=== PATIENT | female | born 1945 | race Hispanic/Latino ===

== ENCOUNTER 2017-12-23 02:41 | Observation (INO) | payer MEDICARE ==
[2017-12-23] VITALS (7 sets, daily range): BP systolic 140–162; BP diastolic 65–78
[~2017-12-23] VITALS: Ht 160 cm; Wt 82.1 kg
[~2017-12-23 02:41] MED LIST: ANTIVERT12.5 MG PO; ASPIRIN81 MG PO; CYMBALTA30 MG PO; FAMOTIDINE20 MG PO; GABAPENTIN300 MG PO; HYDROCHLOROTH12.5 MG PO; LEVOTHYROXINE75 MCG PO; LISINOPRIL40 MG PO; METFORMIN HCL500 MG PO; OMEPRAZOLE20 M1 PO; ULTRAM50 MG PO; XANAX0.25 MG PO
--- OUTSIDE RECORDS SUMMARY | 2017-12-23 02:43 | XMS REPORT | Clinical Summary ---
Author Author CURTIS [facility] Address Unknown Phone Unavailable Care Team Providers Care Lumber Puller Name Role Phone PCP Unavailable Allergies No Known Allergies Current Medications Prescription Sig. Disp. Refills Start End Date Status Date levothyroxine (SYNTHROID, Take 75 mcg by mouth Active LEVOTHROID) 75 MCG tablet daily. busPIRone (BUSPAR) 7.5 MG Take 7.5 mg by mouth 2 Active tablet (two) times daily. sitaGLIPtin (JANUVIA) 100 Take 100 mg by mouth Active MG tablet daily. tiZANidine (ZANAFLEX) 4 Take 4 mg by mouth every Active MG tabletIndications: night as needed. Muscle Spasm lisinopril Take 1 tablet (40 mg 0 11/03/19 Active (PRINIVIL,ZESTRIL) 40 MG total) by mouth daily. 14 tablet gabapentin (NEURONTIN) Take 300 mg by mouth 3 Active 300 MG capsule (three) times daily. sertraline (ZOLOFT) 100 Take 50 mg by mouth daily Active MG tablet . atorvastatin (LIPITOR) 40 Take 40 mg by mouth Active MG tablet daily. metFORMIN (GLUCOPHAGE) Take 500 mg by mouth 2 Active 500 MG tablet (two) times daily with breakfast and dinner. clonazePAM (KLONOPIN) 1 Take 1 mg by mouth 2 Active MG tablet (two) times daily as needed for Anxiety. meclizine (ANTIVERT) 12.5 Take 12.5 mg by mouth 3 Active mg tablet (three) times daily as needed. amLODIPine (NORVASC) 5 MG Take 5 mg by mouth daily. Active tablet magnesium oxide 500 mg Take 500 mg by mouth Active Tab daily. aspirin 325 MG tablet Take 325 mg by mouth Active daily. traMADol (ULTRAM) 50 mg Take 50 mg by mouth every Active tablet 6 (six) hours as needed for Pain. insulin detemir (LEVEMIR) Inject 25 Units Active 100 unit/mL injection subcutaneously 2 (two) times daily. insulin lispro (HUMALOG) Inject subcutaneously 3 Active 100 unit/mL injection (three) times daily before meals. Active Problems Problem Noted Date Chest pain 11/10/2015 Overview: UPDATED BY ICD10 SNOMED/IMO UPDATES Dizziness 11/10/2015 Pyuria 02/18/2015 Fall at home 02/18/2015 DM (diabetes mellitus) (HCC) 02/17/2015 CVD (cerebrovascular disease)-CTA 10/30/2013, 60% R ICA, 60-80% L ICA 2014 [429.2] MCI (mild cognitive impairment) 02/17/2015 Gait abnormality 02/16/2015 Family History Medical History Relation Name Comments Hypertension Father Hypertension Mother Relation Name Status Comments Father Mother Social History Tobacco Use Types Packs/Day Years Used Date Former Smoker Alcohol Use Drinks/Week oz/Week Comments No Sex Assigned at Date Recorded Not on file Last Filed Vital Signs Not on file Plan of Treatment Not on file Results Not on fileafter 12/22/2016
[2017-12-23] MEDS ORDERED: METOPROLOL TARTRATE 25 MG TAB PO ONE (03:00)
[2017-12-23] MEDS ORDERED: NITROGLYCERIN 2% OINT 1 GM PKT TOP ONE (03:00)
[2017-12-23] MEDS ORDERED: ASPIRIN 81 MG CHEW TAB PO ONE (03:00)
[2017-12-23 03:01] LABS: BASOPHILS # (AUTO) 0.1 (0.0-0.1); BASOPHILS % 1.6 % (0.0-1.0); EOSINOPHILS # (AUTO) 0.1 (0.0-0.4); EOSINOPHILS % 2.3 % (0.0-6.0); HEMATOCRIT 36.1 % (34.2-44.1); LYMPHOCYTES # (AUTO) 2.4 (1.0-3.2); LYMPHOCYTES % 41.9 % (18.0-39.1); MEAN CORPUSCULAR HEMOGLOBIN 26.3 pg (28-32); MEAN CORPUSCULAR HGB CONC 33.2 g/dL (31-35); MEAN CORPUSCULAR VOLUME 79.2 fL (81-99); MONOCYTES # (AUTO) 0.6 (0.2-0.8); MONOCYTES % 10.6 % (4.4-11.3); NEUTROPHILS # (AUTO) 2.5 (2.1-6.9); NEUTROPHILS % 43.4 % (38.7-80.0); PLATELET COUNT 235 x10e3/uL (140-360); RED BLOOD COUNT 4.56 x10e6/uL (3.6-5.1); RED CELL DISTRIBUTION WIDTH 12.9 % (11.7-14.4)
[2017-12-23 03:10] LABS: INR 1.03; PARTIAL THROMBOPLASTIN TIME 27.9 seconds (23.8-35.5); PROTHROMBIN TIME 12.7 seconds (11.9-14.5)
[2017-12-23] MEDS ORDERED: LEXAPRO10 MG PO (03:22)
[2017-12-23] MEDS ORDERED: VITAMIN D1000 UNI1 PO (03:22)
[2017-12-23] MEDS ORDERED: ATORVASTATIN CA20 MG PO (03:22)
[2017-12-23] MEDS ORDERED: METAGLIP PO (03:22)
[2017-12-23] MEDS ORDERED: AMLODIPINE BESYL5 MG PO (03:22)
[2017-12-23] MEDS ORDERED: ARICEPT5 MG PO (03:22)
[2017-12-23] MEDS ORDERED: LEVEMIR100 UNIT/1 SC (03:24)
[2017-12-23] MEDS ORDERED: LANTUS 3ML100 UNITS/ SQ (03:24)
[2017-12-23 03:44] LABS: CLARITY,URINE CLEAR (CLEAR); COLOR,URINE YELLOW (YELLOW); LEUKOCYTE ESTERASE ,URINE NEGATIVE (NEGATIVE); NITRITE,URINE NEGATIVE (NEGATIVE)
[2017-12-23 03:45] LABS: BILIRUBIN,URINE NEGATIVE (NEGATIVE); KETONES,URINE NEGATIVE (NEGATIVE); PROTEIN,URINE DIPSTICK TRACE (NEGATIVE); URINE UROBILINOGEN 0.2 mg/dL (0.2 - 1)
[2017-12-23 03:51] LABS: ALANINE AMINOTRANSFERASE 31 IU/L (0-55); ALBUMIN 4.2 g/dL (3.5-5.0); ALBUMIN/GLOBULIN RATIO 1.3 (0.8-2.0); ALKALINE PHOSPHATASE 189 IU/L (40-150); BLOOD UREA NITROGEN 15 mg/dL (7-26); BUN/CREATININE RATIO 17 (6-25); CALCIUM 9.7 mg/dL (8.4-10.2); CARBON DIOXIDE 23 mmol/L (22-29); CHLORIDE 98 mmol/L (98-107); CREATINE KINASE 429 IU/L (29-168); CREATININE, SERUM 0.87 mg/dL (0.57-1.11); EST GLOMERULAR FILTRATION RATE > 60 ML/MIN (60-); MAGNESIUM 1.6 MG/DL (1.3-2.1); SODIUM 134 mmol/L (136-145)
[2017-12-23 03:53] LABS: BACTERIA,URINE RARE /HPF; EPITHELIAL CELLS,URINE RARE /LPF; RBC,URINE 0-5 /HPF (0-5)
[2017-12-23 03:59] LABS: GLUCOSE 438 mg/dL (74-118)
[2017-12-23] MEDS ORDERED: SODIUM CHLORIDE 0.9% 1000ML 1,000 ML IV STA (04:15)
[2017-12-23] MEDS ORDERED: INSULIN LISPRO 100 UNIT/1 ML 3ML VIAL SQ STA ×2 (04:15→04:35)
--- NOTE | 2017-12-23 04:43 | Diagnostic Imaging Report ---
EXAMINATION: CHEST SINGLE (PORTABLE) INDICATION: Chest pain. COMPARISON: 05/12/2016 FINDINGS: TUBES and LINES: None. LUNGS: Lungs are not well inflated. Lungs are clear. There is mild prominence of the central pulmonary vasculature, consistent with pulmonary venous congestion. PLEURA: No pleural effusion or pneumothorax. HEART AND MEDIASTINUM: Cardiac size is mildly enlarged. BONES AND SOFT TISSUES: No acute osseous lesion. Soft tissues are unremarkable. UPPER ABDOMEN: No free air under the diaphragm. IMPRESSION: No acute thoracic abnormality. Signed by: Dr. Ean Bush M.D. on 12/23/2017 4:39 AM
[2017-12-23] MEDS ORDERED: MORPHINE SULFATE 2 MG/ML SYR IV PRN (04:45)
[2017-12-23] MEDS ORDERED: ONDANSETRON HCL INJ 2 MG/ML VIAL IV PRN (04:45)
[2017-12-23] MEDS ORDERED: DEXTROSE 50% SYRINGE 50 ML IV PRN (04:45)
--- OUTSIDE RECORDS SUMMARY | 2017-12-23 04:46 | XMS REPORT ---
[facility] Address Unknown Phone Unavailable Care Team Providers Care Drawstring Knotter Name Role Phone AMARIS GAN Unavailable Unavailable Problems This patient has no known problems. Allergies, Adverse Reactions, Alerts This patient has no known allergies or adverse reactions. Medications This patient has no known medications. Results Test Description Test Time Test Comments Text Results Atomic Results Result Comments CHEST SINGLE (PORTABLE) 2017-12-23 04:39:00 [facility] [address] [address] Patient Name: FANG QUINTANILLA MR #: [id number] : 1945 Age/Sex: 72/F Req #: [id number] Adm Physician: Ordered by: JORGE LUIS SCHWARTZ MD Report #: [id number] Location: ER Room/Bed: _ Procedure: [id number] DX/CHEST SINGLE (PORTABLE) Exam Date: 12/23/17 Exam Time: 0308 REPORT STATUS: Signed EXAMINATION : CHEST SINGLE (PORTABLE) INDICATION: Chest pain. COMPARISON: 05/12/2016 FINDINGS: TUBES and LINES: None. LUNGS : Lungs are not well inflated. Lungs are clear. There is mild prominence of the central pulmonary vasculature, consistent with pulmonary venous congestion. PLEURA: No pleural effusion or pneumothorax. HEART AND MEDIASTINUM: Cardiac size is mildly enlarged. BONES AND SOFT TISSUES: No acute osseous lesion. Soft tissues are unremarkable. UPPER ABDOMEN : No free air under the diaphragm. IMPRESSION: No acute thoracic abnormality. Signed by: Dr. Ean Bush M.D. on 12/23/2017 4:39 AM Dictated By: EAN JEAN-BAPTISTE MD 8 Transcribed By: BRITTNEY on 12/23/17438 COPY TO: JORGE LUIS SCHWARTZ MD
--- OUTSIDE RECORDS SUMMARY | 2017-12-23 04:46 | XMS REPORT | Clinical Summary ---
Author Author CURTIS [facility] Address Unknown Phone Unavailable Care Team Providers Care Commercial Roofer Name Role Phone PCP Unavailable Allergies No [...]
[2017-12-23] MEDS: NITROGLYCERIN 2% OINT 1 GM PKT TOP SCH ×3 (05:43→18:22)
[2017-12-23] MEDS: INSULIN REGULAR, HUMAN 100 UNIT/1 ML 3ML VIAL SQ SCH ×2 (08:41→12:24)
[2017-12-23] MEDS: ASPIRIN 81 MG ENTERIC COATED PO SCH (08:42)
[2017-12-23] MEDS: FAMOTIDINE 20 MG/2 ML VIAL IV SCH ×2 (08:42→20:38)
[2017-12-23 12:42] LABS: CREATINE KINASE MB 1.7 ng/mL (0-5.0)
[2017-12-23] MEDS ORDERED: ALPRAZOLAM 0.25 MG TAB PO PRN (12:45)
[2017-12-23] MEDS ORDERED: INSULIN DETEMIR U SC SCH (12:45)
[2017-12-23] MEDS ORDERED: CHOLECALCIFEROL 1,000 UNIT TAB PO SCH (12:45)
[2017-12-23] MEDS ORDERED: ACETAMINOPHEN 325 MG TAB PO PRN (14:45)
[2017-12-23] MEDS: TRAMADOL HCL 50 MG TAB PO PRN (14:48)
[2017-12-23] MEDS: GABAPENTIN 300 MG CAP PO SCH ×2 (14:48→20:38)
--- NOTE | 2017-12-23 14:50 | Consultation ---
DATE OF CONSULTATION: December 23, 2017 ENDOCRINE CONSULTATION REFERRING PHYSICIAN: This is a patient of Dr. Walton. Thank you very much for referring this patient. HISTORY OF PRESENT ILLNESS: This is a 72-year-old female who is referred to me for evaluation of uncontrolled diabetes mellitus. The patient tells me that she is a known diabetic for almost 4 to 5 years and takes insulin, both Lantus and Levemir, for some reason. She takes Lantus about 40 at bedtime and the Levemir 30 twice a day. She also takes the glyburide and metformin. She came to the hospital with a history of nausea and vomiting, and her blood sugar was found to be 438 and anion gap was slightly elevated at 17. Her blood sugar is presently running in 250 to 300 range. She also came with a history of chest pain. There is no history of coronary artery disease. She has history of hyperlipidemia, for which she is on Lipitor 40 mg once daily. She is also on gabapentin 300 mg 3 times a day and levothyroxine 0.075 mg once daily. Patient is also multiple blood pressure medicines including lisinopril. PHYSICAL EXAMINATION: GENERAL: Today the patient is alert, awake, a little bit apprehensive. VITAL SIGNS: Her heart rate is around 78. Blood pressure 146/86. HEENT: Examination essentially unremarkable. Thyroid is palpable. Clinically she is near euthyroid. CHEST: Bilateral vesicular breathing. She has mild bronchospasm. CARDIAC: Both 1st and 2nd heart sounds. There is no 3rd or 4th heart sound. Ejection sound grade 2/6. NEUROLOGIC: Patient also has history of dementia, for which she is on Aricept. CLINICAL IMPRESSION: 1. Diabetes mellitus type 2, uncontrolled with complications. 2. Hypertension. 3. Hyperlipidemia. 4. Chest pain, rule out coronary artery disease. 5. Hypothyroidism. The plan at this time is to do a hemoglobin A1c, thyroid function test. Monitor her blood sugars closely and continue the Levemir and the Humalog combinations. Thanks for referring this patient. I will be following this patient with you. Job#: [id number] EV
[2017-12-23 14:53] LABS: FREE T4 (FREE THYROXINE) 0.93 ng/dL (0.9-1.8); THYROID STIMULATING HORMONE 1.253 uIU/mL (0.350-4.940)
[2017-12-23] MEDS ORDERED: METAGLIP PO SCH (15:00)
--- NOTE | 2017-12-23 15:29 | History and Physical ---
CLINICAL HISTORY: This is a 72-year-old woman, a patient Dr. Avel Tierney, admitted via the emergency room because of atypical chest pains of 1-month duration and because of glucose of 470 and blood pressure over 200 mmHg systolic. This unfortunate woman suffers from diabetes, hypertension, hyperlipidemia, hypothyroidism, dementia and anxiety. She was hospitalized in 2016 with complaints of chest pains, was sent home to have further workup on outpatient basis. According to the patient and family, she has had previous stress test probably within in the last year that was negative. Her echocardiogram had shown normal left ventricular function. Her current symptoms appear to be occurring once every month, rated 8 on a scale of 10, lasting for up to an hour, described as a pressure sensation radiating to the back, not related to exertion, not pleuritic and not related to eating. 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 In the emergency room, her blood pressure was apparently elevated. Her blood sugar was high. She is being admitted for IV fluids and for further evaluation and treatment. PAST MEDICAL HISTORY: Remarkable for the above-mentioned conditions. MEDICATIONS: Please refer to the existing list. PAST SURGERY: Included a hysterectomy, cholecystectomy, appendectomy. FAMILY HISTORY: Sister had diabetes. Mother had hypertension. PERSONAL AND SOCIAL HISTORY: She has 3 children. Denies smoking, drinking, drug abuse. 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 REVIEW OF SYSTEMS: Noncontributory. PHYSICAL EXAMINATION: GENERAL: She is obese, alert, coherent. CARDIOVASCULAR: Jugular veins are not distended. S1 and S2 are regular. There are no appreciable murmurs. RESPIRATORY: The lungs are clear. ABDOMEN: Soft. Bowel sounds are present. EXTREMITIES: Show no cyanosis, clubbing or edema. LABORATORY STUDIES: Sodium 134, potassium 4.0, chloride 98, bicarb 23, BUN 15, creatinine 0.87. White count 5700, hemoglobin 12, platelet count 236,000. INR is 1.03. Liver functions were negative. IMPRESSION: 1. Atypical chest pains, apparently ongoing for some time, possibly dating back as far as 3 years, not related to exertion, rated 8 on a scale of 10, described as a pressure sensation radiating to the back. 2. Poorly controlled diabetes with blood sugar over 400 and with the patient already taking 80 mg of insulin per day. She is saying that she does not want to take any oral hypoglycemics because they made her feel bad. 3. Hypothyroidism. 4. Obesity. 5. Hypertension. 6. Hyperlipidemia. 7. Dementia. 8. Anxiety. 9. Previous normal left ventricular function. RECOMMENDATIONS: Consider repeat stress testing. Endocrinology consultation at patient's and family's request. Further adjustment of insulin. Diabetes education. Adjustment of blood pressure medications. Job#: [id number] EV cc:MD SALINA VELAZQUEZ MD
[2017-12-23] MEDS ORDERED: SODIUM CHLORIDE 0.9% 50ML 50 ML ONE (15:40)
[2017-12-23] MEDS ORDERED: IOPAMIDOL 370 MG/ML 200 ML INFUS..BTL INJ ONE (15:41)
--- NOTE | 2017-12-23 16:28 | Diagnostic Imaging Report ---
EXAM: CT Chest WITH contrast 12/23/2017 3:01 PM INDICATION: \S\Rule out PE \[id number] \S\1557 COMPARISON: Same day x-ray. TECHNIQUE: Chest was scanned utilizing a multidetector helical scanner from the lung apex through the level of the adrenal glands without administration of IV contrast. Coronal and sagittal reformations were obtained. PE protocol was performed. IV CONTRAST: 100 mL of Isovue-370 COMPLICATIONS: None RADIATION DOSE: Total DLP: 526 mGy*cm Estimated effective dose: (DLP x 0.014 x size factor) mSv CTDIvol has been reviewed. It is below the limits set by the Radiation Protocol Committee (RPC). FINDINGS: LINES/ TUBES: None. LUNGS AND AIRWAYS: Suboptimal opacification of pulmonary arteries. Within this context, there is no definite pulmonary embolism to the segmental level. Airways are normal. 3 mm right upper lobe nodule (series 3, image 42). 3 mm left upper lobe nodules (series 3 images 27 and 24). PLEURA: The pleural spaces are clear. HEART AND MEDIASTINUM: Left thyroid lobe calcification. No mediastinal, hilar or axillary lymphadenopathy. The heart is normal in size.. There is no pericardial effusion. There are mild atherosclerotic calcifications in the aorta and coronary arteries. UPPER ABDOMEN: Cholecystectomy. 2.7 cm right adrenal nodule, likely an adenoma. BONES: The visualized bony thorax is within normal limits. SOFT TISSUES: Unremarkable. IMPRESSION: Suboptimal opacification of pulmonary arteries. Within this context, there is no definite pulmonary embolism to the segmental level. No lung consolidation. Nonspecific subcentimeter lung nodules. Without risk factors, no follow-up is necessary. With risk factors, follow-up with low-dose chest CT in one year is recommended. Signed by: Dr. Papito Sumner MD on 12/23/2017 4:24 PM
[2017-12-23] MEDS: INSULIN LISPRO 100 UNIT/1 ML 3ML VIAL SQ SCH ×3 (16:30→20:16)
[2017-12-23] MEDS ORDERED: INSULIN LISPRO 100 UNIT/1 ML 3ML VIAL SQ SCH (16:30)
[2017-12-23 20:34] LABS: CREATINE KINASE 179 IU/L (29-168)
[2017-12-23] MEDS: ATORVASTATIN 40 MG TAB PO SCH (20:38)
[2017-12-23] MEDS: ALPRAZOLAM 0.25 MG TAB PO PRN (20:38)
[2017-12-23] MEDS: DONEPEZIL HCL 5 MG TAB PO SCH (20:38)
[2017-12-23] MEDS ORDERED: INSULIN DETEMIR 100 UNIT/ML PEN SQ SCH ×2 (21:00)
[2017-12-24] VITALS (8 sets, daily range): BP systolic 86–158; BP diastolic 53–67
[2017-12-24] MEDS: NITROGLYCERIN 2% OINT 1 GM PKT TOP SCH ×4 (00:23→17:20)
[2017-12-24] MEDS: LEVOTHYROXINE SODIUM 75 MCG TAB PO SCH (05:34)
[2017-12-24 06:59] LABS: BASOPHILS # (AUTO) 0.1 (0.0-0.1); BASOPHILS % 1.2 % (0.0-1.0); EOSINOPHILS # (AUTO) 0.1 (0.0-0.4); EOSINOPHILS % 1.3 % (0.0-6.0); HEMATOCRIT 35.7 % (34.2-44.1); HEMOGLOBIN 11.6 g/dL (12.0-16.0); LYMPHOCYTES # (AUTO) 2.6 (1.0-3.2); LYMPHOCYTES % 34.5 % (18.0-39.1); MEAN CORPUSCULAR HEMOGLOBIN 26.5 pg (28-32); MEAN CORPUSCULAR HGB CONC 32.5 g/dL (31-35); MEAN CORPUSCULAR VOLUME 81.7 fL (81-99); MONOCYTES # (AUTO) 0.6 (0.2-0.8); MONOCYTES % 8.2 % (4.4-11.3); NEUTROPHILS # (AUTO) 4.1 (2.1-6.9); NEUTROPHILS % 54.5 % (38.7-80.0); PLATELET COUNT 254 x10e3/uL (140-360); RED BLOOD COUNT 4.37 x10e6/uL (3.6-5.1); RED CELL DISTRIBUTION WIDTH 13.1 % (11.7-14.4)
[2017-12-24 07:21] LABS: ALANINE AMINOTRANSFERASE 30 IU/L (0-55); ALBUMIN 3.9 g/dL (3.5-5.0); ALBUMIN/GLOBULIN RATIO 1.1 (0.8-2.0); ALKALINE PHOSPHATASE 114 IU/L (40-150); ANION GAP 13.1 mmol/L (8-16); BLOOD UREA NITROGEN 11 mg/dL (7-26); BUN/CREATININE RATIO 14 (6-25); CALCIUM 9.5 mg/dL (8.4-10.2); CARBON DIOXIDE 25 mmol/L (22-29); CHLORIDE 99 mmol/L (98-107); CHOL/HDL RATIO 2.6 (3.0-3.6); CHOLESTEROL 143 MD/DL (0-199); CREATININE, SERUM 0.81 mg/dL (0.57-1.11); EST GLOMERULAR FILTRATION RATE > 60 ML/MIN (60-); GLUCOSE 291 mg/dL (74-118); HDL CHOLESTEROL 56 MG/DL (40-60); LDL CHOLESTEROL 70 MG/DL (60-130); POTASSIUM 4.1 mmol/L (3.5-5.1); SODIUM 133 mmol/L (136-145); TRIGLYCERIDES 85 MG/DL (0-149)
[2017-12-24 07:31] LABS: FREE T4 (FREE THYROXINE) 1.04 ng/dL (0.9-1.8); THYROID STIMULATING HORMONE 1.667 uIU/mL (0.350-4.940)
[2017-12-24] MEDS ORDERED: REGADENOSON 0.4 MG/5 ML SYR IV ONE (08:17)
[2017-12-24] MEDS ORDERED: ASPIRIN 81 MG CHEW TAB PO SCH (09:00)
[2017-12-24] MEDS: FAMOTIDINE 20 MG/2 ML VIAL IV SCH ×2 (10:10→21:29)
[2017-12-24] MEDS: ASPIRIN 81 MG ENTERIC COATED PO SCH (10:10)
[2017-12-24] MEDS: LISINOPRIL 20 MG TAB PO SCH (10:11)
[2017-12-24] MEDS: AMLODIPINE BESYLATE 5 MG TAB PO SCH (10:11)
[2017-12-24] MEDS: CHOLECALCIFEROL 1,000 UNIT TAB PO SCH (10:11)
[2017-12-24] MEDS: GABAPENTIN 300 MG CAP PO SCH ×3 (10:11→21:29)
[2017-12-24] MEDS: ESCITALOPRAM OXALATE 10 MG TAB PO SCH (10:11)
[2017-12-24] MEDS: INSULIN LISPRO 100 UNIT/1 ML 3ML VIAL SQ SCH ×6 (10:27→21:00)
[2017-12-24] MEDS: TRAMADOL HCL 50 MG TAB PO PRN (15:14)
[2017-12-24] MEDS ORDERED: INSULIN DETEMIR 100 UNIT/ML PEN SQ SCH (21:00)
[2017-12-24] MEDS: ATORVASTATIN 40 MG TAB PO SCH (21:29)
[2017-12-24] MEDS: DONEPEZIL HCL 5 MG TAB PO SCH (21:29)
[2017-12-25] VITALS: BP 113/52
[2017-12-25] MEDS: ALPRAZOLAM 0.25 MG TAB PO PRN (00:19)
[2017-12-25] MEDS: TRAMADOL HCL 50 MG TAB PO PRN (03:35)
[2017-12-25 04:00] VITALS: BP 129/60
[2017-12-25] MEDS: NITROGLYCERIN 2% OINT 1 GM PKT TOP SCH ×2 (06:00)
[2017-12-25] MEDS: LEVOTHYROXINE SODIUM 75 MCG TAB PO SCH (06:05)
[2017-12-25 07:00] VITALS: BP 145/64
[2017-12-25 07:40] VITALS: BP 145/64
[2017-12-25] MEDS: ESCITALOPRAM OXALATE 10 MG TAB PO SCH (08:24)
[2017-12-25] MEDS: FAMOTIDINE 20 MG/2 ML VIAL IV SCH (08:24)
[2017-12-25] MEDS: ASPIRIN 81 MG ENTERIC COATED PO SCH (08:24)
[2017-12-25] MEDS: GABAPENTIN 300 MG CAP PO SCH (08:24)
[2017-12-25] MEDS: AMLODIPINE BESYLATE 5 MG TAB PO SCH (08:24)
[2017-12-25] MEDS: CHOLECALCIFEROL 1,000 UNIT TAB PO SCH (08:25)
[2017-12-25] MEDS: LISINOPRIL 20 MG TAB PO SCH (08:25)
[2017-12-25] MEDS: INSULIN LISPRO 100 UNIT/1 ML 3ML VIAL SQ SCH ×2 (08:26→08:35)
[2017-12-25] MEDS ORDERED: Insulin Lispro SQ (10:13)
[2017-12-25] MEDS ORDERED: Insulin Detemir SQ (10:13)
--- NOTE | 2017-12-25 11:01 | Cardiology Report ---
LEXISCAN NUCLEAR STRESS TEST CLINICAL HISTORY AND INDICATIONS: A 72-year-old woman who presented with chest pains, unable to walk adequately on the treadmill. Following Lexiscan, perfusion images showed diminished counts involving the inferior wall. The rest images showed the same. CONCLUSIONS: 1. No definite ischemic changes based on perfusion imaging. 2. The ejection fraction with Lexiscan is 72%. 3. Inferior tissue attenuation noted. 4. No significant ST-segment depression with Lexiscan. 5. Normal blood pressure response. 6. No significant arrhythmias with Lexiscan. Job#: [id number] cc:RICARDO CHENG MD
[2017-12-25 12:00] VITALS: BP 143/65
--- NOTE | 2017-12-25 12:24 | Discharge Summary ---
CLINICAL HISTORY: A 72-year-old white woman with history of dementia, admitted via the emergency room because of chest pains, blood sugar over 400. Please refer to my previous dictation concerning details of current illness, past medical history, personal and social history, family history, review of systems, physical examination, initial laboratory studies. HOSPITAL COURSE: The patient was treated with additional insulin with diabetes consultation obtained with Dr. Dario Dickens at the patient's request. Blood sugar gradually was brought under control with sugar in the range of 100 to 200 at the time of discharge. The nighttime detemir was increased to 45 units nightly, and the lispro insulin given with each meal was increased to 20 units t.i.d. For her chest pains, we did a nuclear stress test which was negative. Ejection fraction was 72%. CT scan of the chest showed nonspecific 3 mm right upper lobe pulmonary nodule, to be followed by the primary care physician. The patient was anxious to be discharged and is discharged on the following medications: Detemir insulin 45 units nightly. Lispro insulin 20 units a.c. t.i.d. with meals. Xanax 0.25 mg p.o. t.i.d. p.r.n. anxiety. Amlodipine 5 mg p.o. daily. Aspirin 81 mg daily. Atorvastatin 40 mg daily. Vitamin D3. Aricept 5 mg p.o. daily. Lexapro 10 mg p.o. daily. Gabapentin 300 mg t.i.d. Levothyroxine 75 mcg daily. Lisinopril 40 mg daily. Tramadol 50 mg p.o. daily p.r.n. pain. This patient had some white cells in the urine but no bacteria. Culture was negative for urinary tract infection. The white count was normal at 5700. She was microcytic with MCV of 79. DISCHARGE DIAGNOSES: 1. Diabetes, poorly controlled. 1. Atypical chest pains with a 3 mm right upper lobe nonspecific pulmonary nodule with negative nuclear stress test with nuclear ejection fraction 72%. 2. Nonspecific pulmonary nodule mentioned above. 3. Hyperlipidemia. 4. Hypothyroidism. 5. Dementia. 6. Depression. 7. Microcytosis. 8. Elevated alkaline phosphatase at 189. 9. Obesity. 10. Anxiety. AMARIS JEANG, MD Job#: [id number] EV cc:MD DARIO VELAZQUEZ MD
== END 2017-12-25 12:17 | disposition home or self-care (01) ==
LOC: ER 02:41 → MED/SURG 04:43 → ACU 12-24 11:51 → MED/SURG 12-24 11:52
PROVIDERS: ADMIT Internal Medicine Cardiovascular Disease; ATTEND Internal Medicine Cardiovascular Disease
DX: R07.89 Other chest pain (principal); E11.65 Type 2 diabetes mellitus with hyperglycemia; I10 Essential (primary) hypertension; E03.9 Hypothyroidism, unspecified; E66.9 Obesity, unspecified; E78.5 Hyperlipidemia, unspecified; F03.90 Unspecified dementia, unspecified severity, without behavioral disturbance, psychotic disturbance, mood disturbance, and anxiety; F41.9 Anxiety disorder, unspecified; R91.1 Solitary pulmonary nodule; Z79.4 Long term (current) use of insulin; J98.01 Acute bronchospasm; Z68.31 Body mass index [BMI] 31.0-31.9, adult
CPT/HCPCS: 36415 ×3; 71045; 71260; 78452; 80053 ×2; 80061; 81001; 82550; 82553; 82948 ×3; 83036 ×2; 83735; 83880; 84439 ×2; 84443 ×2; 84484; 85025 ×2; 85610; 85730; 87086; 93005; 93017; 96372; 97161; 99284; A9502; G0378 ×3; J7030; Q9967

== ENCOUNTER 2018-10-01 15:31 | Inpatient (IN) | payer MEDICARE ==
[~2018-10-01] VITALS: Ht 160 cm; Wt 90.5 kg
[~2018-10-01 15:31] MED LIST changes: +AMLODIPINE BESYL5 MG PO; +ARICEPT5 MG PO; +ATORVASTATIN CA20 MG PO; +Insulin Detemir SQ; +Insulin Lispro SQ; +LANTUS 3ML100 UNITS/ SQ; +LEVEMIR100 UNIT/1 SC; +LEXAPRO10 MG PO; +METAGLIP PO; +VITAMIN D1000 UNI1 PO
--- OUTSIDE RECORDS SUMMARY | 2018-10-01 15:33 | XMS REPORT | Clinical Summary ---
Author Author CURTIS [facility] Address Unknown Phone Unavailable Care Team Providers Care Weed Control Inspector Name Role Phone Doneker PCP Unavailable Allergies No Known Allergies Medications End Date Status Medication Sig Dispensed Refills Start Date Active levothyroxine (SYNTHROID, Take 75 mcg 0 LEVOTHROID) 75 MCG tablet by mouth daily. Active busPIRone (BUSPAR) 7.5 MG Take 7.5 mg 0 tablet by mouth 2 (two) times daily. Active sitaGLIPtin (JANUVIA) 100 Take 100 mg 0 MG tablet by mouth daily. Active tiZANidine (ZANAFLEX) 4 Take 4 mg by 0 MG tabletIndications: mouth every muscle spasm night as needed. Active lisinopril Take 1 tablet 0 (PRINIVIL,ZESTRIL) 40 MG (40 mg total) 4 tablet by mouth daily. Active gabapentin (NEURONTIN) Take 300 mg 0 300 MG capsule by mouth 3 (three) times daily. Active sertraline (ZOLOFT) 100 Take 50 mg by 0 MG tablet mouth daily . Active atorvastatin (LIPITOR) 40 Take 40 mg by 0 MG tablet mouth daily. Active metFORMIN (GLUCOPHAGE) Take 500 mg 0 500 MG tablet by mouth 2 (two) times daily with breakfast and dinner. Active clonazePAM (KLONOPIN) 1 Take 1 mg by 0 MG tablet mouth 2 (two) times daily as needed for Anxiety. Active meclizine (ANTIVERT) 12.5 Take 12.5 mg 0 mg tablet by mouth 3 (three) times daily as needed. Active amLODIPine (NORVASC) 5 MG Take 5 mg by 0 tablet mouth daily. Active magnesium oxide 500 mg Take 500 mg 0 Tab by mouth daily. Active aspirin 325 MG tablet Take 325 mg 0 by mouth daily. Active traMADol (ULTRAM) 50 mg Take 50 mg by 0 tablet mouth every 6 (six) hours as needed for Pain. Active insulin detemir (LEVEMIR) Inject 25 0 100 unit/mL injection Units subcutaneousl y 2 (two) times daily. Active insulin lispro (HUMALOG) Inject 0 100 unit/mL injection subcutaneousl y 3 (three) times daily before meals. Active Problems Problem Noted Date Chest pain 11/10/2015 Overview: UPDATED BY ICD10 SNOMED/IMO UPDATES Dizziness 11/10/2015 Pyuria 02/18/2015 Fall at home 02/18/2015 DM (diabetes mellitus) 02/17/2015 CVD (cerebrovascular disease)-CTA 10/30/2013, 60% R ICA, 60-80% L ICA 02/17/2015 [429.2] MCI (mild cognitive impairment) 02/17/2015 Gait abnormality 02/16/2015 Family History Medical History Relation Name Comments Hypertension Father Hypertension Mother Relation Name Status Comments Father Mother Social History Date Tobacco Use Types Packs/Day Years Used Former Smoker Alcohol Use Drinks/Week oz/Week Comments No Sex Assigned at Date Recorded Not on file Industry Job Start Date Occupation Not on file Not on file Not on file Travel End Travel History Travel Start No recent travel history available. Last Filed Vital Signs Not on file Plan of Treatment Not on file Results Not on fileafter 09/30/2017 Insurance Payer Benefit Subscriber ID Type Phone Address Plan / Group [employer] TEX[employer] xxxxxxxxx [facility] ALL Contracted MEDICAID MEDICAID xxxxxxxxx Medicaid OF [place] Advance Directives For more information, please contact: [facility] [address] [place] [address] Date Inactivated Comments Code Status Date Activated 11/11/2015 6:02 PM Full Code 11/10/2015 6:57 AM This code status was determined by: Patient 02/18/2015 8:26 PM Full Code 02/17/2015 1:15 AM This code status was determined by: Patient 11/01/2013 5:12 PM All possible means of support, including: cardiac massage, mechanical ventilation, and defibrillation will be used to support life. Code ONE 10/30/2013 11:14 AM
[2018-10-01 16:02] LABS: BASOPHILS # (AUTO) 0.1 (0.0-0.1); EOSINOPHILS # (AUTO) 0.2 (0.0-0.4); EOSINOPHILS % 1.6 % (0.0-6.0); HEMATOCRIT 33.8 % (34.2-44.1); HEMOGLOBIN 10.8 g/dL (12.0-16.0); LYMPHOCYTES # (AUTO) 3.3 (1.0-3.2); MEAN CORPUSCULAR HEMOGLOBIN 27.6 pg (28-32); MEAN CORPUSCULAR VOLUME 86.4 fL (81-99); MONOCYTES # (AUTO) 0.7 (0.2-0.8); MONOCYTES % 6.6 % (4.4-11.3); NEUTROPHILS # (AUTO) 5.7 (2.1-6.9); NEUTROPHILS % 57.5 % (38.7-80.0); PLATELET COUNT 352 x10e3/uL (140-360); RED BLOOD COUNT 3.91 x10e6/uL (3.6-5.1); RED CELL DISTRIBUTION WIDTH 13.2 % (11.7-14.4)
[2018-10-01 16:09] LABS: BILIRUBIN,URINE NEGATIVE (NEGATIVE); CLARITY,URINE SL CLOUDY (CLEAR); COLOR,URINE YELLOW (YELLOW); KETONES,URINE NEGATIVE (NEGATIVE); LEUKOCYTE ESTERASE ,URINE TRACE (NEGATIVE); NITRITE,URINE NEGATIVE (NEGATIVE); PROTEIN,URINE DIPSTICK NEGATIVE (NEGATIVE); URINE UROBILINOGEN 0.2 mg/dL (0.2 - 1)
[2018-10-01 16:10] LABS: INR 0.93
[2018-10-01 16:11] LABS: PARTIAL THROMBOPLASTIN TIME 32.6 seconds (23.8-35.5)
[2018-10-01 16:17] LABS: BACTERIA,URINE MANY /HPF; EPITHELIAL CELLS,URINE FEW /LPF
[2018-10-01 16:18] LABS: ALANINE AMINOTRANSFERASE 26 IU/L (0-55); ALBUMIN 3.2 g/dL (3.5-5.0); ALBUMIN/GLOBULIN RATIO 0.7 (0.8-2.0); ALKALINE PHOSPHATASE 131 IU/L (40-150); ANION GAP 12.4 mmol/L (8-16); BLOOD UREA NITROGEN 17 mg/dL (7-26); BUN/CREATININE RATIO 23 (6-25); CALCIUM 10.1 mg/dL (8.4-10.2); CARBON DIOXIDE 27 mmol/L (22-29); CHLORIDE 105 mmol/L (98-107); CREATINE KINASE 127 IU/L (29-168); CREATININE, SERUM 0.75 mg/dL (0.57-1.11); EST GLOMERULAR FILTRATION RATE > 60 ML/MIN (60-); GLUCOSE 65 mg/dL (74-118); POTASSIUM 3.4 mmol/L (3.5-5.1); SODIUM 141 mmol/L (136-145)
--- NOTE | 2018-10-01 16:36 | Diagnostic Imaging Report ---
Examination: Single AP view of the chest. COMPARISON: 05/25/2018 INDICATION: Chest pain DISCUSSION: Chronic bibasilar airspace opacities unchanged. No new consolidation, pleural effusion, or pneumothorax. Stable cardiomediastinal contour with tortuosity and atherosclerotic calcification of the thoracic aorta. No overt pulmonary edema. No acute osseous abnormality. IMPRESSION: No acute cardiopulmonary abnormality. Stable appearance of the chest relative to 05/25/2018. Signed by: Dr. Ricky Collins M.D. on 10/01/2018 4:32 PM
[2018-10-01] MEDS ORDERED: SODIUM CHLORIDE 0.9% 1000ML 1,000 ML IV ONE (16:45)
[2018-10-01] MEDS ORDERED: SODIUM CHLORIDE 0.9% 1000ML 1,000 ML ONE (16:46)
--- NOTE | 2018-10-01 17:32 | NUR ---
C/O DIZZINESS. PATIENT PALE AND DIAPHORETIC, ANXIOUS. PATIENT REPORTS SHE IS DIABETIC AND HAS NOT EATEN TODAY. NOTIFIED DR MANNING, GLUCOSE 42, X1 AMP D50 ORDERED.
[2018-10-01] MEDS ORDERED: DEXTROSE 50% SYRINGE 50 ML IV ONE (17:37)
[2018-10-01] MEDS ORDERED: DEXTROSE 50% SYRINGE 50 ML IV STA (17:48)
[2018-10-01] MEDS ORDERED: METFORMIN HCL500 MG PO (18:54)
[2018-10-01] MEDS ORDERED: CLOPIDOGREL75 MG PO (18:54)
--- NOTE | 2018-10-01 19:00 | NUR ---
VERBAL REPORT GIVEN TO CY CALDWELL.
[2018-10-01] MEDS ORDERED: VITAMIN D1000 UNI1 PO (19:07)
[2018-10-01] MEDS ORDERED: LEXAPRO10 MG PO (19:07)
[2018-10-01] MEDS ORDERED: HYDROCHLOROTHIA25 MG PO (19:07)
[2018-10-01] MEDS ORDERED: TRAZODONE HCL50 MG PO (19:07)
[2018-10-01] MEDS ORDERED: ZOLPIDEM TARTRATE 5 MG TAB PO PRN (20:30)
[2018-10-01] MEDS ORDERED: ONDANSETRON HCL INJ 2MG/ML 2ML 2 MG/ML VIAL IV PRN (20:30)
[2018-10-01] MEDS ORDERED: ENALAPRILAT IV INJ 1.25 MG/ML VIAL IV PRN (20:30)
[2018-10-01] MEDS ORDERED: NITROGLYCERIN 0.4 MG SUBL SL PRN (20:30)
[2018-10-01] MEDS ORDERED: ENOXAPARIN SODIUM INJ 100 MG/ML SYR SC NR (20:30)
[2018-10-01] MEDS ORDERED: SODIUM CHLORIDE FLUSH 10 ML SYR INJ PRN (20:30)
[2018-10-01] MEDS ORDERED: DEXTROSE 50% SYRINGE 50 ML IV PRN (20:30)
[2018-10-01] MEDS ORDERED: METOPROLOL TARTRATE 25 MG TAB PO SCH (21:00)
[2018-10-01] MEDS ORDERED: MORPHINE SULFATE INJ 4 MG/ML INJ 1ML IV PRN (21:00)
[2018-10-01] MEDS ORDERED: SIMVASTATIN 40 MG TAB PO SCH (21:00)
[2018-10-01] MEDS ORDERED: INSULIN REGULAR, HUMAN 100 UNIT/1 ML 3ML VIAL SQ SCH (21:00)
--- OUTSIDE RECORDS SUMMARY | 2018-10-01 21:02 | XMS REPORT | Clinical Summary ---
Author Author CURTIS [facility] Address Unknown Phone Unavailable Care Team Providers Care Critical Care Clinical Nurse Specialist Name Role Phone Doneker PCP Unavailable Allergies [...] Address Plan / Group [employer] TEX[employer] xxxxxxxxx [facility] ALL Contracted MEDICAID MEDICAID xxxxxxxxx Medicaid OF [place] Advance Directives For more information, please contact: [facility] [address] [place] [address] Date Inactivated Comments Code Status [...]
[2018-10-01] MEDS: ACETAMINOPHEN 325 MG TAB PO PRN (23:23)
[2018-10-02] VITALS (8 sets, daily range): BP systolic 109–139; BP diastolic 57–73
--- NOTE | 2018-10-02 00:44 | NUR ---
RECEIVED PATIENT FROM THE EMERGENCY ROOM, NO DISTRESS NOTED, POSITIONED IN BED, 02 PER NC REMAIN INTACT, WILL CONTINUE TO MONITOR. ASSESSMENT DONE. CALL LIGHT IN REACH.
--- NOTE | 2018-10-02 02:09 | NUR ---
DURING ASSESSMENT PATIENT COMPLAIN THAT SHE STILL HAD SOME TIGHTNESS IN HER CHEST, FROM A SCALE OF 1 TO 10 ITS AT A 4, MEDICATED ORDERED, WILL CONTINUE TO MONITOR.
[2018-10-02 03:56] LABS: CREATINE KINASE MB 1.1 ng/mL (0-5.0)
--- NOTE | 2018-10-02 07:02 | NUR ---
ROUNDS DONE, PATIENT RESTING IN BED, NO COMPLAINTS OF PAIN VOICED. CALL LIGHT REMAIN IN REACH. TELEMETRY REMAIN ON.
[2018-10-02 08:23] LABS: CHOL/HDL RATIO 2.2 (3.0-3.6)
[2018-10-02 08:29] LABS: CREATINE KINASE MB 1.5 ng/mL (0-5.0)
[2018-10-02] MEDS ORDERED: DEXTROSE 50% SYRINGE 50 ML IV PRN (09:00)
[2018-10-02] MEDS ORDERED: LEVOTHYROXINE SODIUM 75 MCG TAB PO SCH (09:00)
[2018-10-02] MEDS ORDERED: LISINOPRIL 10 MG TAB PO SCH (09:00)
[2018-10-02] MEDS ORDERED: TRAZODONE HCL 50 MG TAB PO SCH (09:00)
[2018-10-02] MEDS ORDERED: ALPRAZOLAM 0.25 MG TAB PO PRN (09:00)
[2018-10-02] MEDS: CLOPIDOGREL BISULFATE 75 MG TAB PO SCH (09:27)
[2018-10-02] MEDS: ASPIRIN 325 MG TAB EC PO SCH (09:27)
[2018-10-02] MEDS: FAMOTIDINE 20 MG TAB PO SCH ×2 (09:27→16:10)
[2018-10-02] MEDS: GABAPENTIN 300 MG CAP PO SCH ×3 (10:56→20:39)
[2018-10-02] MEDS ORDERED: INSULIN LISPRO 10 UNIT SQ SCH (11:30)
[2018-10-02] MEDS: INSULIN LISPRO 100 UNIT/1 ML 3ML VIAL SQ SCH ×5 (11:30→20:41)
--- NOTE | 2018-10-02 13:33 | History and Physical ---
The patient on observation. PRIMARY CARE PHYSICIAN: Dr. Tracy Velazco. GATE ATTENDANT: Dr. Rony Tabares. CHIEF COMPLAINT: Chest pain. HISTORY OF PRESENT ILLNESS: The patient is a pleasant 73-year-old female. In December 2017, the patient had a normal stress test, but since then the patient also had recurrent off and on chest pain. The Lexiscan in December 2017 was normal with ejection fraction of 72%. There was no significant ST-segment depression with the Lexiscan, normal blood pressure response. The patient came in at this time with recurrent chest pressure pain, nonspecific, however, it did wake her up when she was asleep multiple times. The patient came in for evaluation. Her glycohemoglobin A1c was 9.9. Cardiac enzyme has been negative so far. Echocardiogram is still pending. PAST MEDICAL HISTORY: Uncontrolled diabetes type 2, on insulin therapy, recently with medication adjustment. Hypertension, obesity, dyslipidemia. PAST SURGICAL HISTORY: Hysterectomy, cholecystectomy, appendectomy. SOCIAL HISTORY: The patient does not smoke or use alcohol. No recreational drug use. FAMILY HISTORY: Significant for hypertension, coronary artery disease, and diabetes type 2. REVIEW OF SYSTEMS: Increasing chest pain with exertion. No abdominal pain. No shortness of breath. No headaches. ALLERGIES: NO KNOWN ALLERGIES. HOME MEDICATION: List reviewed. PHYSICAL EXAMINATION: VITAL SIGNS: Temperature is 98, blood pressure 128/57, pulse rate is 63, respirations 18. GENERAL: The patient is not in acute distress. She is awake. HEENT: Normocephalic, atraumatic. Anicteric. NECK: Supple grossly. PULMONARY: Clear. CARDIOVASCULAR: Regular rate and rhythm. ABDOMEN: Soft and unremarkable, moderately obese. EXTREMITIES: No cyanosis or edema. NEUROLOGIC: No gross focal deficit. LABORATORY DATA: Cardiac enzymes negative. WBC is 9.8, hemoglobin 10.8, hematocrit 33.8, platelets are 352. Sodium is 141, potassium 3.4, chloride 105, bicarb 27, BUN is 17, creatinine 0.7, glucose 65. EKG show some left axis deviation and also right bundle-branch block, but no ST-T wave significant changes. IMPRESSION: 1. Chest pain. The patient does have risk factors for coronary artery disease given diabetes, hypertension, obesity, and dyslipidemia. The patient will need further workup, possible cardiac catheterization since she had a stress test previously that was normal, however, stress test is possible false negative. 2. Multiple chronic baseline problems. PLAN: Per Dr. Rony Tabares, possible heart catheterization. Echocardiogram. Resume home medication. Lipid panel in the morning. MD JONY Amador/MANAS /[id number]
--- NOTE | 2018-10-02 13:42 | NUR ---
SOCIAL WORK INITIAL ASSESSMENT Automat Car Attendant to bedside to discuss plan of care with patient/family. CM/SW role and care transitions discussed. Anticipated discharge plan discussed along with duration of care. CM/SW discussed patients right to make decisions in care. CM/SW work hours given. Patient lives: IN DOWNSTAIRS APARTMENT WITH Admit/Transfer: VIA ED FROM HOME POA/Emergency contact: DAUGHTER JAVI [phone] Current/Previous Home Health: NONE PCP/Follow-up Care: ARMAAN Current/Previous DME: NONE Other Services: NONE Employment Status: RETIRED Areas of Concerns: NONE Referral Needs: NONE Education Needs: NONE IMM/WOLF given and signed (if applicable): WOLF Goal for discharge: RETURN HOME CM/SW left business card at the bedside with contact information. Name and number was also written on the patients whiteboard. Patient verbalized understanding of discussion. CM will follow-up with ongoing discharge and transition of care needs.
--- NOTE | 2018-10-02 13:53 | Consultation ---
DATE OF CONSULTATION: 10/02/2018 Cardiac Consultation REASON FOR CONSULTATION: Chest pain, unstable coronary artery syndrome. HISTORY: A 73-year-old lady, who is anxious. She was noted to have hypertension, hypercholesterolemia, diabetes mellitus, aortic heart murmur, and bilateral carotid disease. The patient came initially to our office on September 30, 2018, where she was evaluated because of abnormal carotid finding. She was supposed to have noninvasive cardiac workup; however, the patient checked herself into the hospital because she started having repeated on and off chest pain for the last 24 to 48 hours, they are becoming very severe, very frequent, associated with diaphoresis, the patient was very frightened, she checked herself to the hospital. The patient was given Lovenox, the home medication resumed, and cardiac consultation was obtained. The patient described this chest pain as repeated, severe, radiating to her back, associated with diaphoresis. The patient is very poor historian and very dramatic. There is no orthopnea, no paroxysmal nocturnal dyspnea. There is no syncope or presyncope. HOME MEDICATIONS: Aspirin 81 mg a day, Plavix 75 mg a day, Lipitor 40 mg a day, lisinopril 40 mg a day, hydrochlorothiazide 12.5 mg a day, metformin 500 mg daily, levothyroxine 75 mcg a day, and Aricept 10 mg a day. ALLERGIES: NONE. PAST MEDICAL HISTORY: 1. Hypertension. 2. Diabetes mellitus. 3. Hypercholesterolemia. 4. Hypothyroidism. 5. Anxiety. PAST SURGICAL HISTORY: 1. Appendectomy. 2. Cholecystectomy. SOCIAL HISTORY: She is . She is an ex-smoker. She is an alcohol drinker. 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 FAMILY HISTORY: Father of unknown cause of , possible stroke. Mother at age of 67 with Alzheimer complication, but she also of congestive heart failure. Eight siblings and four children, several of her siblings with diabetes mellitus, hypertension, and possible CAD. One daughter at least, she is hypertensive. REVIEW OF SYSTEMS: GENERAL: No fever. No chills. No weight loss. No weight gain. HEENT: Remarkable for chronic headaches and stuffiness. PULMONARY: As per acute illness. CARDIAC: As per acute illness. GI: Poor appetite. No hematemesis. No melena. HEMATOLOGY: No easy bruising or bleeding. : Increased frequency. No hematuria. No dysuria. MUSCULOSKELETAL: Back pain and knee pain. NEUROLOGIC: Very anxious lady. PHYSICAL EXAMINATION: VITAL SIGNS: Height of 5 feet 3 inches, weight of 199 pounds. Blood pressure 140/70, heart rate of 80, and respiratory rate of 18. HEENT: Pupils are reactive. NECK: No elevation of jugular venous pulsation. Bilateral carotid bruit. HEART: PMI in fifth left intercoastal space. Normal first and second heart sounds. ABDOMEN: Soft. EXTREMITIES: No cyanosis, no clubbing, no edema. No signs of deep venous thrombosis. NEUROLOGIC: Grossly nonfocal. IMPRESSION AND PLAN: 1. Unstable coronary artery syndrome. 2. Hypertension. 3. Diabetes mellitus. 4. Hypercholesterolemia. 5. Severe carotid disease. 6. Aortic heart murmur. Cardiac chapman, we will proceed with an echocardiogram to evaluate this heart murmur. We discussed options of workup. The patient is very anxious person and she already made it the emergency room and she is having unstable syndrome like picture. We will give her beta-cody. We will give her statin. We will continue Plavix. We will continue aspirin. We will proceed with cardiac catheterization and at the same time, we can do carotid angiogram to evaluate her abnormal carotid which showed 70% carotid disease. Procedure, risks, benefits, and alternatives are discussed and explained. Questions all answered. MD KADY Garcia/ALANL /[id number]
--- NOTE | 2018-10-02 19:00 | NUR ---
RECEIVED REPORT FROM PREVIOUS NURSE. CALL LIGHT WITHIN REACH. NO PAIN OR DISTRESS. FAMILY AT BEDSIDE.
[2018-10-02] MEDS: ATORVASTATIN 40 MG TAB PO SCH (20:40)
[2018-10-02] MEDS: TRAZODONE HCL 50 MG TAB PO SCH (20:40)
[2018-10-02] MEDS: INSULIN GLARGINE 100 UNITS/ML VIAL SQ SCH (20:42)
[2018-10-02] MEDS: DONEPEZIL HCL 5 MG TAB PO SCH (20:47)
[2018-10-02] MEDS ORDERED: INSULIN DETEMIR 30 UNIT SQ SCH (21:00)
[2018-10-02] MEDS ORDERED: ATORVASTATIN 40 MG TAB PO SCH (21:00)
[2018-10-02] MEDS ORDERED: ATORVASTATIN 20 MG TAB PO SCH ×2 (21:00)
[2018-10-03] VITALS (8 sets, daily range): BP systolic 104–162; BP diastolic 57–86
[2018-10-03] MEDS ORDERED: SODIUM CHLORIDE 0.9% 1000ML 1,000 ML IV SCH (04:00)
[2018-10-03 05:38] LABS: ANION GAP 10.3 mmol/L (8-16); BLOOD UREA NITROGEN 18 mg/dL (7-26); BUN/CREATININE RATIO 22 (6-25); CALCIUM 9.1 mg/dL (8.4-10.2); CARBON DIOXIDE 27 mmol/L (22-29); CHLORIDE 103 mmol/L (98-107); CREATININE, SERUM 0.82 mg/dL (0.57-1.11); EST GLOMERULAR FILTRATION RATE > 60 ML/MIN (60-); GLUCOSE 195 mg/dL (74-118); POTASSIUM 4.3 mmol/L (3.5-5.1); SODIUM 136 mmol/L (136-145)
[2018-10-03] MEDS: LEVOTHYROXINE SODIUM 75 MCG TAB PO SCH (06:14)
[2018-10-03 06:19] LABS: CHOL/HDL RATIO 2.3 (3.0-3.6)
[2018-10-03 06:40] LABS: THYROID STIMULATING HORMONE 2.337 uIU/mL (0.350-4.940)
[2018-10-03 06:58] LABS: BASOPHILS # (AUTO) 0.1 (0.0-0.1); BASOPHILS % 1.6 % (0.0-1.0); EOSINOPHILS # (AUTO) 0.2 (0.0-0.4); EOSINOPHILS % 4.2 % (0.0-6.0); HEMATOCRIT 31.6 % (34.2-44.1); HEMOGLOBIN 9.8 g/dL (12.0-16.0); LYMPHOCYTES # (AUTO) 1.8 (1.0-3.2); LYMPHOCYTES % 30.6 % (18.0-39.1); MEAN CORPUSCULAR HEMOGLOBIN 26.9 pg (28-32); MEAN CORPUSCULAR VOLUME 86.8 fL (81-99); MONOCYTES # (AUTO) 0.6 (0.2-0.8); MONOCYTES % 10.7 % (4.4-11.3); NEUTROPHILS % 52.7 % (38.7-80.0); PLATELET COUNT 249 x10e3/uL (140-360); RED BLOOD COUNT 3.64 x10e6/uL (3.6-5.1); RED CELL DISTRIBUTION WIDTH 13.2 % (11.7-14.4)
[2018-10-03] MEDS: INSULIN LISPRO 100 UNIT/1 ML 3ML VIAL SQ SCH ×7 (07:30→21:00)
[2018-10-03] MEDS: FAMOTIDINE 20 MG TAB PO SCH ×2 (07:30→16:30)
[2018-10-03] MEDS: GABAPENTIN 300 MG CAP PO SCH ×3 (09:00→21:54)
[2018-10-03] MEDS ORDERED: LIDOCAINE HCL 2% LOCAL 20 ML VIAL ONE ×2 (11:23→16:34)
[2018-10-03] MEDS ORDERED: FENTANYL CITRATE/PF 100MCG/2 ML INJ ONE ×2 (11:23→16:34)
[2018-10-03] MEDS ORDERED: MIDAZOLAM HCL 2 MG/2 ML VIAL ONE ×2 (11:23→16:34)
[2018-10-03] MEDS ORDERED: SODIUM CHLORIDE 0.9% 1000ML 0 ML ONE (11:24)
[2018-10-03] MEDS ORDERED: HEPARIN SOD/SOD CHLORIDE 0 ML ONE (11:24)
[2018-10-03] MEDS ORDERED: IOPAMIDOL 370 MG/ML 200 ML INFUS..BTL INJ ONE ×2 (11:24→16:34)
--- NOTE | 2018-10-03 16:32 | NUR ---
WOUND CARE SCREEN: PATIENT HAS A PASTOR SCORE OF 21, AND SCORE IS APPROPRIATE FOR PATIENT WITH APPROPRIATE MEASURES IN PLACE. HEAD TO TOE SKIN ASSESSMENT PREFORMED; PATIENT HAS NO WOUNDS. THANK YOU FOR THIS WOUND CARE SCREEN. Addendum: 10/03/18 at 1640 by Kinza Pérez RN Amended: Links added.
[2018-10-03] MEDS ORDERED: HEPARIN SOD/SOD CHLORIDE 2,000 ML ONE (16:34)
[2018-10-03] MEDS ORDERED: SODIUM CHLORIDE 0.9% 1000ML 1,000 ML ONE (16:35)
[2018-10-03] MEDS ORDERED: HYDRALAZINE HCL 20 MG/ML VIAL ONE (17:08)
--- NOTE | 2018-10-03 18:20 | NUR ---
PATIENT RECEIVED TO ROOM 186, PATIENT ALERT AND ORIENTED TIMES FOUR, DRY GAUZE AND TRANSPARENT DRESSING PRESENT ON PATIENT'S LEFT GROIN, PATIENT DENIES PAIN, FAMILY AT BEDSIDE.
--- NOTE | 2018-10-03 19:00 | NUR ---
Received report from previous nurse. Patient in no pain or distress. Call light within reach. Family at the bedside. Patient is A&Ox3.
[2018-10-03] MEDS: ASPIRIN 325 MG TAB EC PO SCH (19:31)
[2018-10-03] MEDS: CLOPIDOGREL BISULFATE 75 MG TAB PO SCH (19:32)
--- NOTE | 2018-10-03 20:05 | NUR ---
Called and talked to Dr. Ivy about patient's diet being changed from NPO. Dr. Ivy ordered to have the patient be on a cardiac diet.
--- NOTE | 2018-10-03 21:32 | NUR ---
Patient was educated about the importance of slow return to activities, especially after return from cath. lab. patient was reluctant to listen to RN and insisted on getting out of bed to use the bathroom, even though she was educated through her about the risk. she was assisted to the bathroom by RN and . she was returned back to bed. no swelling or bleeding noted, charge nurse on duty made aware.
[2018-10-03] MEDS: DONEPEZIL HCL 5 MG TAB PO SCH (21:54)
[2018-10-03] MEDS: ATORVASTATIN 40 MG TAB PO SCH (21:54)
[2018-10-03] MEDS: TRAZODONE HCL 50 MG TAB PO SCH (21:54)
[2018-10-03] MEDS: INSULIN GLARGINE 100 UNITS/ML VIAL SQ SCH (21:56)
[2018-10-04] VITALS (8 sets, daily range): BP systolic 102–129; BP diastolic 53–61
--- NOTE | 2018-10-04 01:54 | Operative Report ---
DATE OF PROCEDURE: 10/03/2018 SURGEON: Rony Tabares MD PROCEDURES: 1. Left cardiac catheterization. 2. Aortic arch injection. 3. Selective catheter placement in the left common carotid artery and digital subtraction technique angiogram. 4. Selective right innominate and carotid artery angiogram. INDICATION: The patient documented severe carotid disease by Doppler. In addition, the patient came to the emergency room with severe chest pain and unstable coronary syndrome. TECHNICAL DETAILS: After usual sterile preparation and drapping. IV Versed and Fentanyl given for sedation, local Xylocaine for local anesthesia, 4 Fr. sheath is established in right common Femoral artery. Saulo left 4 and 3DRC catheter to engage the coronaries, pigtail for left ventriculogram, and aortic artery injection with digital subtraction technique. Subsequently, the 3DRC catheter was manipulated and advanced inside the left common carotid artery. One injection with digital subtraction was done, which showed critical disease of the carotids. Then, the catheter was withdrawn and placed in the right innominate artery and advanced more distally, and digital subtraction technique was used to picture the right carotid artery. Also, we managed to get picture of the origin in the proximal part of the right subclavian artery. At the end of the procedure, the sheath was removed. Hemostasis achieved manually. There were no complications and no blood loss. RESULTS: A. Coronary angiogram: 1. Left main: Short left main. 2. LAD: 40% ostial LAD disease. 3. Circumflex coronary artery giving very large branching first obtuse marginal. 4. Right coronary artery is dominant artery with minimal plaquing. B Hemodynamics : Aorta pressure 150/80, LV pressure 150/20. C. Left ventriculogram: Right anterior oblique view showed normal-sized ventricle with an ejection fraction of 65%. D. Aortic artery injection showed presence of type 2 arch. The left vertebral is relatively large and is coming from the arch. E. Left carotid angiogram: It showed critical lesion starting at the bifurcation, extending in the left internal carotid and left external carotid lesion at least of 90%. F. Right common carotid and innominate angiogram showed the presence of severe calcified lesion at almost 80% of the right internal carotid, 95% of the right external carotid. There is severe disease of the origin of the right subclavian with poststenotic dilatation. IMPRESSION: 1. Mild coronary artery disease. 2. Normal left ventricular ejection fraction. 3. Critical left bifurcation and origin of the internal carotid as well as external carotid artery. 4. Severe disease of the right internal and external carotid artery. 5. 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 COMPLICATIONS: None. BLOOD LOSS: None. RECOMMENDATION: Proceeding with left carotid endarterectomy, then later on doing right carotid endarterectomy with possibility of right common carotid to right subclavian bypass. MD KADY Garcia/MODL /[id number] MTDDawn
--- NOTE | 2018-10-04 02:59 | Consultation ---
DATE OF CONSULTATION: 10/03/2018 REASON FOR CONSULT: Bilateral carotid stenoses; requested by Dr. Rony Tabares. Form Setter [employer] Forms is Dr. Tracy Velazco. Hospitalist is Dr. Ivy. HISTORY OF PRESENT ILLNESS: I saw and evaluated this patient on October 03, 2018. She is a very nice 73-year-old lady, who has been having recurrent chest discomfort over the past several months. She had another episode several days ago and was brought to the emergency room by her family. In the ER, her EKG was normal and her cardiac enzymes were also normal. A previous Lexiscan performed in 2018 was normal with EF 72%. Cardiac catheterization was completed today. This showed a 40% proximal LAD lesion, but no other significant stenosis. The ejection fraction was 65%. Carotid angiogram was also performed. This revealed a 90% stenosis of the left internal carotid artery at the bulb, 80% to 85% stenosis of the right internal carotid artery, and a stenosis at the origin of the subclavian artery on the right of 90%. Surgical evaluation is requested. There is no history of TIA or stroke. The patient specifically denies amaurosis fugax, but has had blurry vision. No sensation of leg or dysarthria. No PND or orthopnea. PAST MEDICAL HISTORY: Positive for insulin-dependent diabetes, hypertension, obesity, hyperlipidemia, and hypothyroidism. PAST SURGICAL HISTORY: Positive for hysterectomy, cholecystectomy, and appendectomy. SOCIAL HISTORY: Negative for smoking, alcohol, or IV drug use. She has a very supportive family. FAMILY HISTORY: Positive for hypertension, coronary artery disease, and diabetes. REVIEW OF SYSTEMS: GENERAL: Positive for fatigue. NEUROLOGIC: Positive for dizziness as above. Negative for focal weakness. No dysarthria. HEENT: Positive for some decreased vision and decreased hearing. CARDIAC: Positive for chest pain as above. Negative for palpitation. PULMONARY: Positive for occasional shortness of breath. Negative for wheezing. GI: No constipation or diarrhea. : Negative for hematuria or dysuria. ENDOCRINE: Negative for polyuria or polydipsia. VASCULAR: Negative for claudication. SKIN: Negative for rashes or itching. HEMATOLOGIC: Negative for clotting or bleeding. INFECTIOUS: Negative for fevers or sweating. PSYCHIATRIC: Negative for depression or anxiety. PHYSICAL EXAMINATION: GENERAL: Somewhat overweight lady, lying flat in bed in no apparent distress. VITAL SIGNS: Blood pressure 140/70, pulse 80 and regular, respirations 16 and unlabored. NECK: Supple and nontender. No JVD. CARDIAC: Shows a regular rate and rhythm. There is a normal S1 and S2. There is no S3, S4, rub, or murmur. LUNGS: Clear to auscultation and percussion bilaterally. ABDOMEN: , benign. Good bowel sounds. No hepatosplenomegaly. BACK: No CVA tenderness. No muscle spasm. EXTREMITIES: No cyanosis, clubbing, or edema. VASCULAR: Carotids 2+/2+ bilaterally. I could not appreciate any carotid bruits. Radials 1+/2+ on the left and trace/2+ on the right. Femorals are 1+/2+ bilaterally. SKIN: No rashes or nonhealing ulcers. MUSCULOSKELETAL: Full range of motion at all joints. No joint swelling. NEUROLOGIC: Cranial nerves II through XII intact. Sensation intact to light touch and pinprick bilaterally. Strength 5/5 in all extremities. LYMPHATICS: Negative for cervical, clavicular, or femoral adenopathy. LABORATORY DATA: Sodium 136, potassium 4.3, BUN 18, and creatinine 0.82. White count 5.7, hemoglobin 9.8, hematocrit 31.6, and platelet count 249,000. IMPRESSION: Significant bilateral carotid stenoses. I have discussed the findings with Dr. Tabares. I agree with his recommendations for left internal carotid artery endarterectomy to be followed by a staged right carotid endarterectomy. I described the surgery to the patient, her , her sons, and her daughters. I told them all that the risks of surgery will include , bleeding, infection, heart attack, stroke, pneumonia, prolonged ICU stay, mechanical ventilation, tracheostomy, amputation, etc. We discussed the risk of stroke in detail. I told them that the risk of stroke that might be major or lethal during surgery or in the early postoperative period would be on the order of 3% to 4%. I told them that after surgery, the risk of stroke would fall to approximately 0.5 to 1% period, but not to zero. I told them that without surgery, the risk of stroke might be as high as 4 to 5% per year, given the bilateral lesions and the tight nature of the lesions. I told them that the only reason to proceed with surgery was to lessen the risk of stroke over the long-term and that the operation would not be expected to improve neurologic function. The patient and her family stated that they understood, there were no further questions and wanted to discuss timing of surgery with their other physicians. Thank you very much for asking me to see this nice lady. MD OLN Gorman/MANAS /[id number]
[2018-10-04] MEDS: LEVOTHYROXINE SODIUM 75 MCG TAB PO SCH (06:20)
--- NOTE | 2018-10-04 07:00 | NUR ---
BEDSIDE SHIFT REPORT RECEIVED FROM DIRECTOR OF COMPENSATION RN. PT DENIES NEEDS AT THIS TIME.
--- NOTE | 2018-10-04 07:39 | NUR ---
Gave report to oncoming nurse. Patient in bed. No pain or distress. call light within reach.
[2018-10-04] MEDS ORDERED: LISINOPRIL 10 MG TAB PO SCH (09:00)
[2018-10-04] MEDS: GABAPENTIN 300 MG CAP PO SCH ×3 (09:01→21:05)
[2018-10-04] MEDS: ASPIRIN 325 MG TAB EC PO SCH (09:01)
[2018-10-04] MEDS: CLOPIDOGREL BISULFATE 75 MG TAB PO SCH (09:01)
[2018-10-04] MEDS: FAMOTIDINE 20 MG TAB PO SCH ×2 (09:01→16:45)
[2018-10-04] MEDS: INSULIN LISPRO 100 UNIT/1 ML 3ML VIAL SQ SCH ×7 (09:04→21:05)
--- NOTE | 2018-10-04 17:58 | NUR ---
REPORT CALLED TO ZULEIKA BENOIT AND PT TRANSFERRED TO 108.
--- NOTE | 2018-10-04 18:03 | NUR ---
Received patient from [facility]. Patient A/O X3, even respirations on RA. Skin intact, bowel sounds active, no edema. Tele #[id number] SR. Left AC 18 gauge IV SL. Patient is ambulatory with standby assist. Call light in reach, bed low, wheels locked, side rails up. Family at bedside, will continue to monitor.
[2018-10-04] MEDS: INSULIN GLARGINE 100 UNITS/ML VIAL SQ SCH (21:05)
[2018-10-04] MEDS: DONEPEZIL HCL 5 MG TAB PO SCH (21:05)
[2018-10-04] MEDS: ATORVASTATIN 40 MG TAB PO SCH (21:05)
[2018-10-04] MEDS: TRAZODONE HCL 50 MG TAB PO SCH (21:05)
[2018-10-05] VITALS (7 sets, daily range): BP systolic 92–133; BP diastolic 52–61
[2018-10-05] MEDS: LEVOTHYROXINE SODIUM 75 MCG TAB PO SCH (06:06)
--- NOTE | 2018-10-05 07:15 | NUR ---
PT RESTING IN BED COMFORTABLY, REPORTS NO PAIN , CP FROM THIS AM HAS BEEN RELIEVED WITH MORPHINE GIVEN BY VENEER DRIER TAILER NURSE. PT IS ON RA. FAMILY IS AT BEDSIDE (). PT HAS AN IV ACCESS TO THE LEFT AC 18 G SL. PT HAS A DRESSING TO THE RIGHT GROIN THAT IS DRY AND INTACT S/P HEART CATH DURING ADMISSION. PT GROIN WHERE DRESSING IS LOCATED IS BRUISED. PT REPORTS TENDERNESS TO THE AREA AT TOUCH. ON PALPATION PT SKIN WERE BRUISING IS IS SOFT TO THE TOUCH. WILL CONTINUE TO MONITOR PT . SIDE RAILSX2, BED WHEELS LOCKED, CALL LIGHT IS WITHIN EASY REACH, INSTRUCTED TO CALL FOR ASSISTANCE IF NEEDED.
[2018-10-05] MEDS: INSULIN LISPRO 100 UNIT/1 ML 3ML VIAL SQ SCH ×7 (07:30→21:00)
[2018-10-05] MEDS ORDERED: ALPRAZOLAM 0.25 MG TAB PO PRN (08:15)
[2018-10-05] MEDS: GABAPENTIN 300 MG CAP PO SCH ×3 (09:02→21:15)
[2018-10-05] MEDS: FAMOTIDINE 20 MG TAB PO SCH ×2 (09:02→16:47)
[2018-10-05] MEDS: CLOPIDOGREL BISULFATE 75 MG TAB PO SCH (09:02)
[2018-10-05] MEDS: ASPIRIN 325 MG TAB EC PO SCH (09:02)
--- NOTE | 2018-10-05 15:24 | NUR ---
MD MENDES ROUNDED AND STATES PT UPON HIS STAND POINT COULD BE DC, INSTRUCTED TO CALL DUANE FOR ORDERS ON SPOKE WITH MD ZEPEDA. MD STATES PT COULD GO HOME AND PT IS TO RECEIVE A CALL FROM HIS OFFICE ON SUNDAY SCHEDULING SURGERY CALLED MD ANDERSON FOR DC ORDERS. NO ANSWER, LEFT A DETAILED VOICEMAIL REGARDING MD ZEPEDA AND MD MENDES PLAN. AWAITING FOR CALL BACK
[2018-10-05] MEDS: ACETAMINOPHEN 325 MG TAB PO PRN (16:14)
[2018-10-05] MEDS: INSULIN GLARGINE 100 UNITS/ML VIAL SQ SCH (21:00)
[2018-10-05] MEDS: TRAZODONE HCL 50 MG TAB PO SCH (21:15)
[2018-10-05] MEDS: ATORVASTATIN 40 MG TAB PO SCH (21:15)
[2018-10-05] MEDS: DONEPEZIL HCL 5 MG TAB PO SCH (21:15)
[2018-10-06 00:20] VITALS: BP 118/62
[2018-10-06 05:00] VITALS: BP 119/58
[2018-10-06] MEDS: LEVOTHYROXINE SODIUM 75 MCG TAB PO SCH (05:52)
[2018-10-06] MEDS: ACETAMINOPHEN 325 MG TAB PO PRN (05:52)
[2018-10-06] MEDS: ASPIRIN 325 MG TAB EC PO SCH (08:17)
[2018-10-06] MEDS: CLOPIDOGREL BISULFATE 75 MG TAB PO SCH (08:17)
[2018-10-06] MEDS: GABAPENTIN 300 MG CAP PO SCH (08:17)
[2018-10-06] MEDS: FAMOTIDINE 20 MG TAB PO SCH (08:17)
[2018-10-06 08:18] VITALS: BP 113/47
[2018-10-06] MEDS: INSULIN LISPRO 100 UNIT/1 ML 3ML VIAL SQ SCH ×4 (08:18→12:26)
[2018-10-06 08:36] VITALS: BP 113/47
[2018-10-06 11:55] VITALS: BP 124/57
[2018-10-06] MEDS ORDERED: MILK OF MA400 MG/5 M PO (12:30)
[2018-10-06] MEDS ORDERED: SENNA LAX8.6 MG PO (12:35)
[2018-10-06] MEDS ORDERED: METFORMIN HCL500 MG PO (12:36)
[2018-10-06] MEDS ORDERED: HYDROCHLOROTHIA25 MG PO (12:36)
--- NOTE | 2018-10-06 12:58 | NUR ---
DC INSTRUCTIONS GIVEN AND PRESCRIPTIONS. PT VERBALIZED UNDERSTANDING OF NEW MEDICATION CHANGED/STOPPED DUE TO SCHEDULED SURGERY UNDERSTANDS FOLLOW UP VISIT WITH MD ZEPEDA AND HAS CONTACT INFORMATION INSTRUCTED MD ZEPEDA OFFICE WILL CONTACT PT ON SUNDAY , IF NO CALL HAS BEEN RECEIVED TO PLEASE CALL OFFICE HERSELF PT IS NOW OFF UNIT VIA WHEEL CHAIR TO HOME
--- NOTE | 2018-10-07 12:01 | Discharge Summary ---
PRIMARY CARE PHYSICIAN: Dr. Tracy Velazco. CONSULTANTS: 1. Dr. Tavares Tabares. 2. Dr. Jonah Zelaya. FINAL DIAGNOSES: 1. Chest pain and dizziness associated with near syncopal episode. 2. Baseline diabetes type 2 with multiple coronary artery disease risk factors. 3. Status post angiogram, finding of no significant coronary stenosis, but there is significant bilateral carotid stenosis, would need a staged left carotid and followed by right carotid endarterectomy surgery intervention. SUMMARY: A 73-year-old female, who came in with some dizziness, chest pain. The patient has multiple risk factors, cardiac enzymes with slightly elevated troponin I. The patient with uncontrolled diabetes type 2, on insulin therapy, recently with medication adjustment. She came in with high blood sugar. She was also hypertensive at that time, baseline obesity and dyslipidemia. Because of her multiple risk factors, the patient underwent cardiac catheterization along with carotid angiogram as well. The coronary artery disease is insignificant and did not need prevention. However, the internal carotid artery is significantly stenotic. The patient was seen by Dr. Zelaya. A staged carotid endarterectomy will need to follow. The patient will follow up with Dr. Zelaya immediately upon discharge for a schedule of her surgery. I discussed with the patient and her daughter along with the patient's spouse as well on the plan per Dr. Zelaya's recommendation. Cardiology and Dr. Zelaya have cleared for the patient to go home and I agree as well. The patient can go home and rest and schedule for the carotid surgery as planned. She will resume her home medication with some adjustment. We will hold off on hydrochlorothiazide and metformin for now pending further surgery. Would take half of the lisinopril 20 mg once a day for her blood pressure. The patient will continue her other medications including insulin. Again, the patient will get in contact with Dr. Zelaya tomorrow, schedule for surgery and do stage carotid endarterectomy as an outpatient schedule procedures. MD JONY Amador/MANAS /[id number]
== END 2018-10-06 13:02 | disposition home or self-care (01) | DRG 68 ==
LOC: ER 15:31 → ERHOLD 20:59 → IMCU 10-02 00:44 → OBSVTOIN 10-04 12:07 → MED/SURG 10-04 17:48
PROVIDERS: ADMIT Internal Medicine; ATTEND Internal Medicine
PROC: 4A023N7 Measurement of Cardiac Sampling and Pressure, Left Heart, Percutaneous Approach (ICD-10-PCS; principal; 2018-10-03)
PROC: B3101ZZ Fluoroscopy of Thoracic Aorta using Low Osmolar Contrast (ICD-10-PCS; 2018-10-03)
PROC: B2111ZZ Fluoroscopy of Multiple Coronary Arteries using Low Osmolar Contrast (ICD-10-PCS; 2018-10-03)
PROC: B2151ZZ Fluoroscopy of Left Heart using Low Osmolar Contrast (ICD-10-PCS; 2018-10-03)
PROC: B3141ZZ Fluoroscopy of Left Common Carotid Artery using Low Osmolar Contrast (ICD-10-PCS; 2018-10-03)
DX: I65.23 Occlusion and stenosis of bilateral carotid arteries (principal); E11.9 Type 2 diabetes mellitus without complications; I25.10 Atherosclerotic heart disease of native coronary artery without angina pectoris; Z79.4 Long term (current) use of insulin; E78.5 Hyperlipidemia, unspecified; I65.22 Occlusion and stenosis of left carotid artery; I35.8 Other nonrheumatic aortic valve disorders; E66.9 Obesity, unspecified; Z68.35 Body mass index [BMI] 35.0-35.9, adult
CPT/HCPCS: 36221; 36415; 71045; 80048; 80053; 80061; 81001; 82550; 82553; 82948; 83036; 83880; 84443; 84484; 85025; 85610; 85730; 93005; 93306; 93458; 93880; 96372; 99284; C1766; G0378; J0360; J1815; J2001; J2250; J2270; J7030; J7799; Q9967

== ENCOUNTER 2018-11-02 21:51 | Emergency (ER) | payer MEDICARE ==
[~2018-11-02] VITALS: Ht 160 cm; Wt 90.3 kg
[~2018-11-02 21:51] MED LIST changes: +CLOPIDOGREL75 MG PO; +HYDROCHLOROTHIA25 MG PO; +MILK OF MA400 MG/5 M PO; +SENNA LAX8.6 MG PO; +TRAZODONE HCL50 MG PO
[2018-11-02 22:38] LABS: BASOPHILS # (AUTO) 0.1 (0.0-0.1); BASOPHILS % 1.3 % (0.0-1.0); EOSINOPHILS # (AUTO) 0.2 (0.0-0.4); EOSINOPHILS % 4.3 % (0.0-6.0); HEMATOCRIT 32.7 % (34.2-44.1); HEMOGLOBIN 10.7 g/dL (12.0-16.0); LYMPHOCYTES # (AUTO) 1.8 (1.0-3.2); LYMPHOCYTES % 32.8 % (18.0-39.1); MEAN CORPUSCULAR HEMOGLOBIN 28.5 pg (28-32); MEAN CORPUSCULAR HGB CONC 32.7 g/dL (31-35); MEAN CORPUSCULAR VOLUME 87.2 fL (81-99); MONOCYTES # (AUTO) 0.6 (0.2-0.8); MONOCYTES % 10.8 % (4.4-11.3); NEUTROPHILS # (AUTO) 2.7 (2.1-6.9); NEUTROPHILS % 50.4 % (38.7-80.0); PLATELET COUNT 202 x10e3/uL (140-360); RED BLOOD COUNT 3.75 x10e6/uL (3.6-5.1)
[2018-11-02 23:00] LABS: ALANINE AMINOTRANSFERASE 26 IU/L (0-55); ALBUMIN 3.5 g/dL (3.5-5.0); ALBUMIN/GLOBULIN RATIO 0.9 (0.8-2.0); ALKALINE PHOSPHATASE 146 IU/L (40-150); ANION GAP 13.4 mmol/L (8-16); BLOOD UREA NITROGEN 18 mg/dL (7-26); BUN/CREATININE RATIO 23 (6-25); CALCIUM 9.9 mg/dL (8.4-10.2); CARBON DIOXIDE 23 mmol/L (22-29); CHLORIDE 106 mmol/L (98-107); CREATINE KINASE 166 IU/L (29-168); EST GLOMERULAR FILTRATION RATE > 60 ML/MIN (60-); GLUCOSE 167 mg/dL (74-118); POTASSIUM 3.4 mmol/L (3.5-5.1); SODIUM 139 mmol/L (136-145)
--- NOTE | 2018-11-02 23:13 | Diagnostic Imaging Report ---
EXAMINATION: CHEST 2 VIEWS INDICATION: ^chest pain with inspiration ^[id number] ^2235 ^Y COMPARISON: Chest x-ray 10/01/2018 FINDINGS: PA and lateral views TUBES and LINES: None. LUNGS: Lungs are well inflated. There is no evidence of pneumonia or pulmonary edema. PLEURA: No pleural effusion or pneumothorax. HEART AND MEDIASTINUM: The heart is top normal in size to mildly enlarged. Aortic tortuosity and mural calcifications are stable. BONES AND SOFT TISSUES: No focal osseous lesions. Soft tissues are unremarkable. UPPER ABDOMEN: No free air under the diaphragm. There are clips in the upper abdomen. IMPRESSION: No acute cardiopulmonary process. Mild cardiomegaly. Signed by: Dr. Manoj Dhaliwal MD on 11/02/2018 11:10 PM
[2018-11-02] MEDS ORDERED: ACETAMINOPHEN/CODEINE 300MG - 30MG TAB ONE (23:42)
[2018-11-02] MEDS ORDERED: ACETAMINOPHEN/CODEINE 300MG - 30MG TAB PO ONE (23:45)
== END 2018-11-03 00:15 | disposition home or self-care (01) ==
LOC: ER 21:51
DX: R05 Cough (principal); J20.8 Acute bronchitis due to other specified organisms; B34.9 Viral infection, unspecified
CPT/HCPCS: 36415; 71046; 80053; 82550; 82553; 84484; 85025; 93005; 99284

== ENCOUNTER 2019-11-20 22:16 | Observation (INO) | payer MEDICARE ==
[~2019-11-20] VITALS: Ht 160 cm; Wt 91.3 kg
[~2019-11-20 22:16] MED LIST changes: +ASPIRIN ENTERI325 MG PO; +HUMALOG100 UNIT/1 SQ; +TOUJEO SOL300 UNIT/1 SQ
--- OUTSIDE RECORDS SUMMARY | 2019-11-20 22:18 | XMS REPORT | Clinical Summary ---
Author Author [facility] Address Unknown Phone Unavailable Care Team Providers Care Design Verification Engineer Name Role Phone Doneker PCP Unavailable Allergies [...] 02/17/2015 CVD (cerebrovascular disease)-CTA 10/30/2013, 60% R I CA, 60-80% L ICA 02/17/2015 [429.2] MCI (mild [...] Not on file Results Not on fileafter 11/19/2018 Insurance Payer Benefit Subscriber ID Type Phone Address Plan / Group [employer] TEXAN[employer]US xxxxxxxxx [facility] ALL Contracted MEDICAID MEDICAID xxxxxxxxx Medicaid OF [place] Advance Directives For more information, please contact: [facility] [address] [place] [id number] Date Inactivated Comments Code Status Date Activated 11/11/2015 6:02 PM Full Code 11/10/2015 6:57 AM This code status was determined by: Patient 02/18/2015 8:26 PM Full Code 02/17/2015 1:15 AM This code status was determined by: Patient 11/01/2013 5:12 PM All possible means of suppor t, including: cardiac massage, mechanical ventilation, and defibrillation will be used to support life. Code ONE 10/30/2013 11:14 AM
--- OUTSIDE RECORDS SUMMARY | 2019-11-20 22:18 | XMS REPORT | Clinical Summary ---
Author Author [facility] Organization [facility] Address Unknown Phone Unavailable Care Team Providers Care Water Softener Servicer And Installer Name Role Phone Tracy Velazco MD PCP Allergies No Known Allergies Medications End Date Status Medication Sig Dispensed Refills Start Date Active hydroCHLOROthiazide Take 12.5 mg 0 (HYDRODIURIL) 12.5 MG by mouth tablet daily. Active ergocalciferol (VITAMIN Take 50,000 0 D2) 50,000 unit capsule Units by mouth once a week. Active traZODone (DESYREL) 100 Take 100 mg 0 MG tablet by mouth nightly. Active lisinopril Take 20 mg by 0 (PRINIVIL,ZESTRIL) 40 mg mouth daily. tablet Active levothyroxine (SYNTHROID, Take 75 mcg 0 LEVOXYL) 75 mcg tablet by mouth daily. Active escitalopram (LEXAPRO) 10 Take 10 mg by 0 MG tablet mouth daily. Active donepezil (ARICEPT) 10 MG Take 10 mg by 0 tablet mouth nightly. Active aspirin 325 MG tablet Take 325 mg 0 by mouth daily. Active clopidogrel (PLAVIX) 75 Take 75 mg by 0 mg tablet mouth daily. Active calcium carbonate Take 1 tablet 0 (CALCIUM 600 ORAL) by mouth daily. Active atorvastatin (LIPITOR) 80 Take 80 mg by 0 MG tablet mouth daily. Active metFORMIN (GLUCOPHAGE) Take 1,000 mg 0 1,000 mg tablet by mouth 2 (two) times a day with meals. Active insulin lispro (HumaLOG Inject 20 0 KwikPen Insulin) 100 Units under unit/mL injection pen the skin 3 (three) times a day before meals. This is basal rate, pt uses additional per sliding scale; if glucose over 130 pt will add more units. Family to bring in sliding scale Active insulin glargine U-300 Inject 65 0 conc 300 unit/mL (3 mL) Units under insulin pen the skin nightly. Active levocetirizine (XYZAL) 5 Take 5 mg by 0 MG tablet mouth daily as needed for allergies. Active famotidine (PEPCID) 40 MG Take 40 mg by 0 tablet mouth daily. Active cyclobenzaprine Take 5 mg by 0 (FLEXERIL) 5 mg tablet mouth 3 (three) times a day as needed for muscle spasms. 05/30/2019 Discontinued gabapentin (NEURONTIN) Take 100 mg 0 100 mg capsule by mouth nightly. 05/29/2019 Discontinued (Therapy comple jonathan) HYDROcodone-acetaminophen Take 1 tablet 0 (NORCO) 7.5-325 mg per by mouth tabletIndications: acute every 6 (six) pain hours as needed for moderate pain .Acute Pain. Active Problems Problem Noted Date Left carotid stenosis 05/29/2019 Carotid artery calcification, right 11/27/2018 Encounters Care Team Description Date Type Specialty Tai Bloom MD Ali, Faisal, LEASING MANAGER 05/29/2019 Anesthesia General Surgery Event Milton Day MD ENDARTERECTOMY, LEFT CAROTID 05/29/2019 Surgery General Surgery Milton Day MD 05/29/2019 Hospital Intensive Care - Encounter 05/30/2019 Milton Day MD Preop testing (Primary Dx) 05/27/2019 Pre-Admit Pre-Admission Testi ng Testing Appointment Milton Day MD Preop testing 05/27/2019 Hospital Radiology Encounter Farhan Manzo MD Strever, Michael Shane, LEASING MANAGER 11/27/2018 Anesthesia General Surgery Event Milton Day MD ENDARTERECTOMY, RIGHT CAROTID 11/27/2018 Surgery General Surgery Milton Day MD 11/27/2018 Hospital General Surgery - Encounter 11/29/2018 Milton Day MD 11/25/2018 Hospital Radiology Encounter Milton Day MD Preop testing (Primary Dx) 11/25/2018 Pre-Admit Pre-Admission Testi ng Testing Appointment after 11/19/2018 Family History Relation Name Status Comments Father Mother Social History Date Tobacco Use Types Packs/Day Years Used Former Smoker Cigarettes 0.5 50 Smokeless Tobacco: Never Used Drinks/Week oz/Week Comments Alcohol Use occasionally Yes Sex Assigned at Date Recorded Not on file Industry Job Start Date Occupation Not on file Not on file Not on file Travel End Travel History Travel Start No recent travel history available. Last Filed Vital Signs Reading Time Taken Comments Vital Sign 142/65 05/30/2019 6:00 PM VEGETABLE LOADER Blood Pressure 84 05/30/2019 6:00 PM VEGETABLE LOADER Pulse 37 C (98.6 F) 05/30/2019 1:00 PM VEGETABLE LOADER Temperature 21 05/30/2019 6:00 PM VEGETABLE LOADER Respiratory Rate 92% 05/30/2019 6:00 PM VEGETABLE LOADER Oxygen Saturation - - Inhaled Oxygen Concentration 94 kg (207 lb 3.7 oz) 05/30/2019 4:00 AM VEGETABLE LOADER Weight 160 cm (5' 3") 05/29/2019 12:49 PM VEGETABLE LOADER Height 36.71 05/29/2019 12:49 PM VEGETABLE LOADER Body Mass Index Plan of Treatment Health Maintenance Due Date Last Done Comments DIABETIC RETINAL EYE EXAM 1946 DIABETIC FOOT EXAM 1956 URINE MICROALBUMIN 1956 BREAST CANCER SCREENING 1996 COLONOSCOPY SCREENING 1996 SHINGLES VACCINES (#1) 1996 65+ PNEUMOCOCCAL VACCINE 2011 (1 of 2 - PCV13) INFLUENZA VACCINE 02/14/2020 Implants Device Identifier Shelf Expiration Date Model / Serial / L ot Implanted Type Area Manufactur er 03/15/2024 [id number] / / [id number] Health Insurance Adjuster Mltpl Clip Ligaclip Ligtng Surgical Left: Arter y, ETHICON 20 Clips 29.2cm Med Ti - [id number] Implants; Carotid ENDO Implanted: Qty: 1 on 05/29/2019 by Expanders; DANYEL Milton Hall MD Extenders; at [facility] Surgical Wires 10/14/2023 [id number] / / [id number] Health Insurance Adjuster Mltpl Clip Ligaclip Ligtng Surgical Left: Arter y, ETHICON 20 Clips 23.8cm Sm Ti - [id number] Implants; Carotid ENDO Implanted: Qty: 1 on 05/29/2019 by Expanders; Milton Chambers MD Extenders; at [facility] Surgical Wires 03/15/2023 [id number] / [id number] / [id number] Patch Vasclr Perph 0.8x8cm Vascular Right: Artery, BAX TER Vascu-Guard - [id number] - Graft Carotid BIOSCIENCE [id number] Implanted: Qty: 1 on 11/27/2018 by Milton Day MD at [facility] 11/19/2023 [id number] / / [id number] Patch Vasclr Perph 0.8x8cm Vascular Left: Artery, BAX TER Vascu-Guard - [id number] Graft Carotid BIOSC IENCE Implanted: Qty: 1 on 05/29/2019 by Milton Day MD at [facility] Procedures Comments Procedure Name Priority Date/Time Associated Diag nosis POC GLUCOSE Routine 05/30/2019 3:38 PM VEGETABLE LOADER POC GLUCOSE Routine 05/30/2019 11:28 AM VEGETABLE LOADER POC GLUCOSE Routine 05/30/2019 7:31 AM VEGETABLE LOADER POC GLUCOSE Routine 05/30/2019 6:05 AM VEGETABLE LOADER PHOSPHORUS LEVEL Routine 05/30/2019 3:31 AM VEGETABLE LOADER ESTIMATED GFR Routine 05/30/2019 3:31 AM VEGETABLE LOADER MAGNESIUM LEVEL Routine 05/30/2019 3:31 AM VEGETABLE LOADER COMPREHENSIVE METABOLIC Routine 05/30/2019 PANEL 3:31 AM VEGETABLE LOADER HC COMPLETE BLD COUNT Routine 05/30/2019 W/AUTO DIFF 3:31 AM VEGETABLE LOADER IONIZED CALCIUM Routine 05/30/2019 3:31 AM VEGETABLE LOADER XR CHEST 1 VW PORTABLE STAT 05/29/2019 8:32 PM VEGETABLE LOADER POC GLUCOSE Routine 05/29/2019 8:07 PM VEGETABLE LOADER SURGICAL PATHOLOGY Routine 05/29/2019 REQUEST 4:48 PM VEGETABLE LOADER ARTERIAL LINE Routine 05/29/2019 4:06 PM VEGETABLE LOADER NH AN ELECTIVE Routine 05/29/2019 ENDOTRACHEAL AIRWAY 4:06 PM VEGETABLE LOADER ENDARTERECTOMY, CAROTID 05/29/2019 CAROTID STENO SIS 3:33 PM VEGETABLE LOADER I65.225 Special Needs SUPINE POC GLUCOSE Routine 05/29/2019 1:17 PM VEGETABLE LOADER XR CHEST 2 VW Routine 05/27/2019 Preop testing 10:28 AM VEGETABLE LOADER ECG 12-LEAD Routine 05/27/2019 Preop testing 9:58 AM VEGETABLE LOADER ESTIMATED GFR Routine 05/27/2019 9:45 AM VEGETABLE LOADER HEMOGLOBIN A1C Routine 05/27/2019 Preop testing 9:45 AM VEGETABLE LOADER TYPE AND SCREEN Routine 05/27/2019 Preop testing 9:45 AM VEGETABLE LOADER PARTIAL THROMBOPLASTIN Routine 05/27/2019 Preop t esting TIME (PTT) 9:45 AM VEGETABLE LOADER PROTHROMBIN TIME WITH INR Routine 05/27/2019 Preo p testing 9:45 AM VEGETABLE LOADER COMPREHENSIVE METABOLIC Routine 05/27/2019 Preop testing PANEL 9:45 AM VEGETABLE LOADER HC COMPLETE BLD COUNT Routine 05/27/2019 Preop te sting W/AUTO DIFF 9:45 AM VEGETABLE LOADER POC GLUCOSE Routine 11/29/2018 12:10 PM CDT POC GLUCOSE Routine 11/29/2018 6:20 AM CDT ESTIMATED GFR Routine 11/29/2018 5:10 AM CDT MAGNESIUM LEVEL Routine 11/29/2018 5:10 AM CDT COMPREHENSIVE METABOLIC Routine 11/29/2018 PANEL 5:10 AM CDT HC COMPLETE BLD COUNT Routine 11/29/2018 W/AUTO DIFF 5:10 AM CDT POC GLUCOSE Routine 11/28/2018 8:17 PM CDT POC GLUCOSE Routine 11/28/2018 11:54 AM CDT POC GLUCOSE Routine 11/28/2018 7:20 AM CDT ESTIMATED GFR Routine 11/28/2018 3:43 AM CDT MAGNESIUM LEVEL Routine 11/28/2018 3:43 AM CDT COMPREHENSIVE METABOLIC Routine 11/28/2018 PANEL 3:43 AM CDT HC COMPLETE BLD COUNT Routine 11/28/2018 W/AUTO DIFF 3:43 AM CDT POC GLUCOSE Routine 11/27/2018 8:14 PM CDT POC GLUCOSE Routine 11/27/2018 5:11 PM CDT ESTIMATED GFR STAT 11/27/2018 5:05 PM CDT COMPREHENSIVE METABOLIC STAT 11/27/2018 PANEL 5:05 PM CDT HC COMPLETE BLD COUNT Routine 11/27/2018 W/AUTO DIFF 5:05 PM CDT POC GLUCOSE Routine 11/27/2018 3:25 PM CDT XR CHEST 1 VW PORTABLE STAT 11/27/2018 3:09 PM CDT POC GLUCOSE Routine 11/27/2018 12:46 PM CDT SURGICAL PATHOLOGY Routine 11/27/2018 REQUEST 11:43 AM CDT ENDARTERECTOMY, CAROTID 11/27/2018 RIGHT CAROTID STENOSIS 10:10 AM CDT GREATER THAN 20% I65.23 POC GLUCOSE Routine 11/27/2018 8:09 AM CDT POC GLUCOSE Routine 11/27/2018 7:27 AM CDT PREPARE RBC Routine 11/27/2018 7:20 AM CDT TYPE AND SCREEN Routine 11/27/2018 7:20 AM CDT XR CHEST 2 VW Routine 11/25/2018 Preop testing 11:40 AM CDT ECG 12-LEAD Routine 11/25/2018 Preop testing 11:12 AM CDT ESTIMATED GFR Routine 11/25/2018 11:10 AM CDT PROTHROMBIN TIME WITH INR Routine 11/25/2018 Preo p testing 11:10 AM CDT PARTIAL THROMBOPLASTIN Routine 11/25/2018 Preop t esting TIME (PTT) 11:10 AM CDT COMPREHENSIVE METABOLIC Routine 11/25/2018 Preop testing PANEL 11:10 AM CDT HC COMPLETE BLD COUNT Routine 11/25/2018 Preop te sting W/AUTO DIFF 11:10 AM CDT after 11/19/2018 Results * POC glucose (05/30/2019 3:38 PM VEGETABLE LOADER) Only the most recent of 17 results within the time period is included. Pathologist [facility] POC glucose 175 (H) 65 - 99 mg/dL [place] Comment: CHERELLE SCHWARTZ Meter ID: [id number] [facility] Continuous Improvement Lead: Josué Whyte Specimen Performing Organization Address City/State/[facility] Ph [place] [address] [address] [place], [place] [address] PATHOLOGY AND GENOMIC MEDICINE [place] CHERELLE SCHWARTZ [address] [place] [address] [facility] * Estimated GFR (05/30/2019 3:31 AM VEGETABLE LOADER) Only the most recent of 6 results within the time period is included. Pathologist [facility] Estimated GFR >=90 mL/min/1.73 m2 [place] Comment: CHERELLE SCHWARTZ Catergory Units [facility] Interpretation G1 >=90 Normal or high G2 60-89 Mildly decreased G3a 45-59 Mildly to moderately decreased G3b 30-44 Moderately to severely decreased G4 15-29 Severely decreased G5 <15 Kidney failure The eGFR was calculated using the Chronic Kidney Disease Epidemiology Collaboration (CKD-EPI) equation. Interpretation is based on recommendations of the National Kidney Foundation-Kidney Disease Outcomes Quality Initiative (NKF-KDOQI) published in 2014. Specimen Plasma specimen Performing Organization Address City/State/Zipcode Ph one Number [facility] [place] [id number] [place] [address] [place], [place] [address] PATHOLOGY AND GENOMIC MEDICINE [facility] [id number] [place] [address] * CBC with platelet and differential (05/30/2019 3:31 AM VEGETABLE LOADER) Only the most recent of 6 results within the time period is included. WBC 7.88 4.50 - 11.00 k/uL [facility] RBC 4.03 (L) 4.20 - 5.50 m/uL [facility] HGB 11.1 (L) 12.0 - 16.0 g/dL [facility] HCT 34.6 (L) 37.0 - 47.0 % [facility] MCV 85.9 82.0 - 100.0 fL [facility] MCH 27.5 27.0 - 34.0 pg [facility] MCHC 32.1 31.0 - 37.0 g/dL [facility] RDW - SD 43.9 37.0 - 55.0 fL [facility] MPV 11.0 8.8 - 13.2 fL [facility] Platelet count 231 150 - 400 k/uL [facility] Nucleated RBC 0.00 /100 WBC [facility] Neutrophils 88.5 (H) 39.0 - 69.0 % [facility] Lymphocytes 7.2 (L) 25.0 - 45.0 % [facility] Monocytes 3.6 0.0 - 10.0 % [facility] Eosinophils 0.0 0.0 - 5.0 % [facility] Basophils 0.3 0.0 - 1.0 % [facility] Specimen Blood Performing Organization Address City/State/Zipcode Ph one Number [facility] [place] [place] [address] [place] [address] PATHOLOGY AND GENOMIC MEDICINE [facility] [address] * Phosphorus level (05/30/2019 3:31 AM VEGETABLE LOADER) Phosphorus 4.0 2.4 - 4.5 mg/dL [facility] Specimen Plasma specimen Performing Organization Address City/[facility] Ph one Number [facility] [place] [address] [address] [place], [place] [address] PATHOLOGY AND GENOMIC MEDICINE [facility] [address] [address] * Magnesium level (05/30/2019 3:31 AM VEGETABLE LOADER) Only the most recent of 3 results within the time period is included. Magnesium 1.8 1.6 - 2.4 mg/dL [facility] Specimen Plasma specimen Performing Organization Address City/State/[facility] Ph one Number [facility] DEPARTMENT OF [facility] [address] [place], [place] [address] PATHOLOGY AND GENOMIC MEDICINE [place] [address] [address] * Ionized calcium (05/30/2019 3:31 AM VEGETABLE LOADER) pH 7.34 [facility] Ionized calcium 1.11 1.11 - 1.32 mmol/L [facility] Specimen Plasma specimen Performing Organization Address City/[facility] Ph one Number [facility] DEPARTMENT OF [facility] [address] [place] [address] PATHOLOGY AND GENOMIC MEDICINE [place] [address] [address] * Comprehensive metabolic panel (05/30/2019 3:31 AM VEGETABLE LOADER) Only the most recent of 6 results within the time period is included. Sodium 134 (L) 135 - 148 mEq/L [facility] Potassium 4.7 3.5 - 5.0 mEq/L [facility] Chloride 100 98 - 112 mEq/L [facility] CO2 23 (L) 24 - 31 mEq/L [facility] Anion gap 11@ANIO 7 - 15 mEq/L [facility] BUN 21 8 - 23 mg/dL [facility] Creatinine 0.60 0.50 - 0.90 mg/dL [facility] Glucose 314 (H) 65 - 99 mg/dL [facility] Calcium 8.8 8.8 - 10.2 mg/dL [facility] Protein 7.2 6.3 - 8.3 g/dL [place] Comment: [facility] Wxswhdz1755.6-7.0 g/dL [facility] 1 zirc9320.4-7.6 g/dL 7 months-2xolw949.1-7.3 g/dL 1-2 .6-7.5 g/dL >3 bxlbe846.0-8.0 g/dL 18-1095935.3-8.3 g/dL Albumin 4.2 3.5 - 5.0 g/dL [facility] A/G ratio 1.4 0.7 - 3.8 [facility] Alkaline 106 (H) 35 - 104 U/L [place] phosphatase [facility] AST 35 10 - 35 U/L [facility] ALT 33 5 - 50 U/L [facility] Total bilirubin 0.7 0.0 - 1.2 mg/dL [facility] Specimen Plasma specimen Performing Organization Address [facility] Ph one Number [facility] [place] [address] [place] [address] PATHOLOGY AND GENOMIC MEDICINE [facility] [address] [place] [address] [facility] * XR Chest 1 Vw Portable (05/29/2019 8:32 PM VEGETABLE LOADER) Only the most recent of 2 results within the time period is included. Specimen Narrative Performed At EXAMINATION: XR CHEST 1 VW PORTABLE [facility] CLINICAL HISTORY: ICU pt stable wit h no clinical status changes IMPRESSION: Aortic arch calcified. Heart is slightl y enlarged. There are scattered areas of subsegmental atelectasis. There is no s egmental infiltrate or effusion. Regional skeleton is intact. [facility]-[id number] Procedure Note Hm Interface, Radiology Results Incoming - 05/29/2019 8:44 PM VEGETABLE LOADER EXAMINATION: XR CHEST 1 VW PORTABLE CLINICAL HISTORY: ICU pt stable with no clinical status changes IMPRESSION: Aortic arch calcified. Heart is slightly enlarged. There are scattered areas of subsegmental atelectasis. There is no segmental infiltrate or effusion. Regional skeleton is intact. [facility]-[id number] Performing Organization Address City/[facility] Ph one Number [facility] [address] [place] [address] * Surgical pathology request (05/29/2019 4:48 PM VEGETABLE LOADER) Only the most recent of 2 results within the time period is included. [facility] DEPARTMENT OF PATHOLOGY AND GENOMIC MEDICINE Surgical See link below for PDF Lab [facility] pathology Report DEPARTMENT OF report PATHOLOGY AND GENOMIC MEDICINE Result status This is Final Report for [facility] [id number] DEPARTMENT OF PATHOLOGY AND GENOMIC MEDICINE Specimen Performing Organization Address City/State/Zipcode Ph one Number [facility] [place] [place] [address] [address] [place], [place] [address] PATHOLOGY AND GENOMIC MEDICINE * Arterial line (05/29/2019 4:06 PM VEGETABLE LOADER) Narrative Performed At Tai Bloom MD 1 07/29/2018 4:06 PM Arterial line Performed by: Tai Bloom MD Authorized by: Tai Bloom MD Patient Location: OR Staff: Anesthesiologist: Gail Bloom MD Performed by: Anesthesiologist Pre-procedure: patient identified, IV c hecked, site and side verified, risks and benefits discussed, procedure verified, surgical consent complete, patient position confirmed, m onitors and equipment checked and pre-op evaluation complete MSBT: antiseptic used, all elements of maximal sterile barrier technique followed, hand hygiene performed, cap/g own used by other personnel and solutions labeled Indications: Indications: multiple ABGs and hemody namic monitoring Anesthesia: Anesthesia: General Procedure Details: Arterial Line placement: Placed pos t induction Line placement site: Radial Line placement side: Right Arterial line gauge: 20 G Number of attempts: 1 Ultrasound guidance used: No Post-procedure: Post-procedure: Sterile dressing ap plied Post procedure circulation, sensation , movement: Normal Patient tolerance: Patient tolerate d the procedure well with no immediate complications * Airway (05/29/2019 4:06 PM VEGETABLE LOADER) Narrative Performed At Tai Bloom MD 1 07/29/2018 4:06 PM Airway Performed by: Tai Bloom MD Authorized by: Tai Bloom MD Location: OR Urgency: Elective Difficult Airway: No Anesthesiologist: Lucio Bloom MD Performed by: anesthesiologist Preoxygenated with 100% O2: Yes Mask Ventilation: Easy mask Final Airway Type: Endotracheal airwa y Final Endotracheal Airway: ETT Cuffed: Yes Technique Used: Direct laryngoscopy Devices/Methods Used in Placement: In tubating stylet Insertion Site: Oral Blade Type: Santos Laryngoscope Blade/Videolaryngoscope Bl david Size: 2 ETT Size (mm): 7.5 Cuff at minimum occlusion pressure: Yes Placement Verified by: CO2 detection an d direct visualization Laryngoscopic view: Grade I - full vi ew of glottis Rapid Sequence Induction (RSI): No Modified RSI: No Number of Attempts at Approach: 1 * XR Chest 2 Vw (05/27/2019 10:28 AM VEGETABLE LOADER) Only the most recent of 2 results within the time period is included. Specimen Narrative Performed At EXAMINATION: XR CHEST 2 VW [facility] CLINICAL HISTORY: Z01.818 Encounter f or other preprocedural examination, preop COMPARISON: To previous examination f rom 11/27/2018 IMPRESSION: Cardiomediastinal silhouette is promine nt. The lungs are clear. [facility]-[id number] Procedure Note Hm Interface, Radiology Results Incoming - 05/27/2019 10:37 AM VEGETABLE LOADER EXAMINATION: XR CHEST 2 VW CLINICAL HISTORY: Z01.818 Encounter for other preprocedural examination, preop COMPARISON: To previous examination from 11/27/2018 IMPRESSION: Cardiomediastinal silhouette is prominent. The lungs are clear. [facility]-[id number] Performing Organization Address City/State/[facility] Ph one Number [facility] [address] [place] [address] * ECG 12 lead (05/27/2019 9:58 AM VEGETABLE LOADER) Only the most recent of 2 results within the time period is included. Ventricular 63 [facility] rate Atrial rate 63 [facility] NH interval 138 [facility] QRSD interval 94 [facility] QT interval 452 [facility] QTC interval 462 [facility] P axis 1 -15 [facility] QRS axis 1 -29 [facility] T wave axis 44 [facility] EKG impression Normal sinus rhythm-Incomplete [facility] MU SE right bundle branch block-Borderline ECG-In automated comparison with ECG of 25-NOV-2018 11:12,-No significant change was found- Specimen Narrative Performed At This result has an attachment that is n ot available. Performing Organization Address [facility] one Number [facility] MUSE [address] [place] [address] * Partial thromboplastin time, activated (05/27/2019 9:45 AM VEGETABLE LOADER) Only the most recent of 2 results within the time period is included. PTT 30.6 23.0 - 36.0 sec [place] Comment: [facility] PTT therapeutic range for [facility] unfractionated heparin is 61.0-112.0 seconds which corresponds to Anti-Xa 0.3-0.7 U/ml. Specimen Blood Performing Organization Address [facility] one Number [facility] DEPARTMENT [address] [place] [address] PATHOLOGY AND [facility] [address] * Prothrombin time with INR (05/27/2019 9:45 AM VEGETABLE LOADER) Only the most recent of 2 results within the time period is included. Prothrombin 13.6 11.5 - 14.5 sec [facility] INR 1.1 [place] Comment: [facility] The International Normalized [facility] Ratio (INR) is a therapeutic monitoring tool for patients who are stable on oral anticoagulant therapy. An INR of 2.0-3.0 is suggested for deep vein thrombosis/pulmonary embolism. Specimen Blood Performing Organization Address [facility] one Number [facility] DEPARTMENT [address] [place] [address] PATHOLOGY AND [facility] [address] * Type and screen (05/27/2019 9:45 AM VEGETABLE LOADER) Only the most recent of 2 results within the time period is included. ABO grouping O [facility] Rh type POS [facility] Antibody screen NEG [facility] Specimen Blood Performing Organization Address [facility] one Number [facility] DEPARTMENT OF [address] [place] [address] [place], [place] [address] PATHOLOGY AND [facility] [address] * Hemoglobin A1c (05/27/2019 9:45 AM VEGETABLE LOADER) Hemoglobin A1C 9.1 (H) 4.0 - 5.6 % [place] Comment: CHERELLE SCHWARTZ HbA1c cutoffs for diagnosing [facility] diabetes: 4.0% - 5.6% = normal 5.7% - 6.4% = increased risk for diabetes (prediabetes)9 >=6.5% = diabetes9 Goals for glycemic control (ADA 2016) < 7.0% Target for non adults with diabetes. More or less stringent targets may be appropriate for individual patients. <7.5% Target for Children and adolescents with type 1 diabetes. Specimen Blood Performing Organization Address City/State/Zipcode Ph one Number [facility] [place] [address] [address] [place], [place] [address] PATHOLOGY AND GENOMIC MEDICINE [place] CHERELLE SCHW[address]Z [address] [place] [address] [facility] after 11/19/2018 Insurance Type Payer Benefit Subscriber ID Effective Phone Address Plan / Dates Group HMO AMERIGROUP AMERIGROUP xxxxxxxxx 2018-P -AMERIVANT resent AGE [facility] Medicaid MEDICAID MEDICAID xxxxxxxxx 2018-P resent Advance Directives For more information, please contact: [phone] Patient Shift Manager Explanation Type Date Recorded Advance Directives, 11/25/2018 9:36 AM Living Will and Medical Power of [facility] [place] Date Inactivated Comments Code Status Date Activated 05/30/2019 11:07 PM Full Code 05/29/2019 2:46 PM Code Status decision reached by: Patient
[2019-11-20] MEDS ORDERED: NITROGLYCERIN 2% OINT 1 GM PKT TOP ONE (22:30)
[2019-11-20 23:31] LABS: BASOPHILS # (AUTO) 0.1 (0.0-0.1); EOSINOPHILS # (AUTO) 0.1 (0.0-0.4); EOSINOPHILS % 2.2 % (0.0-6.0); HEMATOCRIT 35.7 % (34.2-44.1); HEMOGLOBIN 11.3 g/dL (12.0-16.0); LYMPHOCYTES # (AUTO) 1.8 (1.0-3.2); LYMPHOCYTES % 29.4 % (18.0-39.1); MEAN CORPUSCULAR HEMOGLOBIN 26.3 pg (28-32); MEAN CORPUSCULAR HGB CONC 31.7 g/dL (31-35); MEAN CORPUSCULAR VOLUME 83.2 fL (81-99); MONOCYTES # (AUTO) 0.5 (0.2-0.8); MONOCYTES % 8.5 % (4.4-11.3); NEUTROPHILS # (AUTO) 3.6 (2.1-6.9); NEUTROPHILS % 58.4 % (38.7-80.0); PLATELET COUNT 233 x10e3/uL (140-360); RED BLOOD COUNT 4.29 x10e6/uL (3.6-5.1); RED CELL DISTRIBUTION WIDTH 14.8 % (11.7-14.4)
[2019-11-20 23:41] LABS: INR 0.87; PROTHROMBIN TIME 12.3 seconds (11.9-14.5)
[2019-11-20 23:42] LABS: PARTIAL THROMBOPLASTIN TIME 30.3 seconds (23.8-35.5)
[2019-11-20 23:51] LABS: ALBUMIN 3.9 g/dL (3.5-5.0); ALBUMIN/GLOBULIN RATIO 1.1 (0.8-2.0); ANION GAP 18.1 mmol/L (8-16); CALCIUM 9.4 mg/dL (8.4-10.2); CREATININE, SERUM 1.03 mg/dL (0.57-1.11); POTASSIUM 4.1 mmol/L (3.5-5.1)
[2019-11-20 23:57] LABS: CREATINE KINASE MB 1.6 ng/mL (0-5.0)
--- NOTE | 2019-11-21 00:01 | Diagnostic Imaging Report ---
EXAMINATION: CHEST SINGLE (PORTABLE) INDICATION: Chest pain COMPARISON: Chest x-ray 04/19/2019 FINDINGS: TUBES and LINES: None. LUNGS: Normal lung volumes. Lungs are clear. Prominent central pulmonary vasculature. PLEURA: No pleural effusion or pneumothorax. HEART AND MEDIASTINUM: Cardiac size is mildly enlarged. BONES AND SOFT TISSUES: No acute osseous lesion. Soft tissues are unremarkable. UPPER ABDOMEN: No free air under the diaphragm. IMPRESSION: Mild cardiomegaly and pulmonary vascular congestion. Signed by: Adolfo Watt DO on 11/20/2019 11:58 PM
[2019-11-21] MEDS ORDERED: SODIUM CHLORIDE FLUSH 10 ML SYR INJ PRN (00:30)
[2019-11-21] MEDS ORDERED: DEXTROSE 50% SYRINGE 50 ML IV PRN (00:30)
[2019-11-21] MEDS: FAMOTIDINE 20 MG/2 ML VIAL IV SCH ×2 (00:30→08:31)
[2019-11-21] MEDS ORDERED: ONDANSETRON HCL INJ 2MG/ML 2ML 2 MG/ML VIAL IV PRN (00:30)
--- OUTSIDE RECORDS SUMMARY | 2019-11-21 00:51 | XMS REPORT | Clinical Summary ---
Author Author [facility] Address Unknown Phone Unavailable Care Team Providers Care Railway Shunter Name Role Phone Doneker PCP Unavailable Allergies [...] Not on file Results Not on fileafter 11/20/2018 Insurance Payer Benefit Subscriber ID Type Phone Address Plan / Group TEXANPLUS TEXANPLUS xxxxxxxxx [facility] ALL Contracted MEDICAID MEDICAID xxxxxxxxx Medicaid OF [place] Advance Directives For more information, please contact: [facility] [address] [place] [phone] Date Inactivated Comments Code Status Date [...]
--- OUTSIDE RECORDS SUMMARY | 2019-11-21 00:51 | XMS REPORT | Clinical Summary ---
Author Author [facility] Address Unknown Phone Unavailable Care Team Providers Care Excavator Operator Name Role Phone Tracy Velazco MD PCP [...] Type Specialty Tai Bloom MD Ali, Faisal, BOTTLE LINE WORKER 05/29/2019 Anesthesia General Surgery Event Milton Day MD ENDARTERECTOMY, LEFT CAROTID 05/29/2019 Surgery General Surgery Milton Day MD 05/29/2019 Hospital Intensive Care - Encounter 05/30/2019 Milton Day MD Preop testing (Primary Dx) 05/27/2019 Pre-Admit Pre-Admission Testi ng Testing Appointment Milton Day MD Preop testing 05/27/2019 Hospital Radiology Encounter Farhan Manzo MD Strever, Michael Shane, BOTTLE LINE WORKER 11/27/2018 Anesthesia General Surgery Event Milton Day MD ENDARTERECTOMY, RIGHT CAROTID 11/27/2018 Surgery General Surgery Milton Day MD 11/27/2018 Hospital General Surgery - Encounter 11/29/2018 Milton Day MD 11/25/2018 Hospital Radiology Encounter Milton Day MD Preop testing (Primary Dx) 11/25/2018 Pre-Admit Pre-Admission Testi ng Testing Appointment after 11/20/2018 Family History Relation Name Status Comments Father [...] Comments Vital Sign 142/65 05/30/2019 6:00 PM SHEARING SUPERVISOR Blood Pressure 84 05/30/2019 6:00 PM SHEARING SUPERVISOR Pulse 37 C (98.6 F) 05/30/2019 1:00 PM SHEARING SUPERVISOR Temperature 21 05/30/2019 6:00 PM SHEARING SUPERVISOR Respiratory Rate 92% 05/30/2019 6:00 PM SHEARING SUPERVISOR Oxygen Saturation - - Inhaled Oxygen Concentration 94 kg (207 lb 3.7 oz) 05/30/2019 4:00 AM SHEARING SUPERVISOR Weight 160 cm (5' 3") 05/29/2019 12:49 PM SHEARING SUPERVISOR Height 36.71 05/29/2019 12:49 PM SHEARING SUPERVISOR Body Mass Index Plan of Treatment Health [...] Manufactur er 03/15/2024 [id number] / / [id number] Electrical Controls Engineer Mltpl Clip Ligaclip Ligtng Surgical Left: Arter y, ETHICON 20 Clips 29.2cm Med Ti - [id number] Implants; Carotid ENDO Implanted: Qty: 1 on 05/29/2019 by Expanders; DANYEL Milton Hall MD Extenders; at [facility] Surgical Wires 10/14/2023 [id number] / / [id number] Electrical Controls Engineer Mltpl Clip Ligaclip Ligtng Surgical Left: Arter y, ETHICON 20 Clips 23.8cm Sm Ti - [id number] Implants; Carotid ENDO Implanted: Qty: 1 on 05/29/2019 by [employer]and[employer]; Milton Chambers MD Extenders; at [facility] Surgical Wires 03/15/2023 [id number] / [id number] / [id number] Patch Vasclr Perph 0.8x8cm Vascular Right: Artery, BAX TER Vascu-Guard - [id number] - Graft Carotid BIOSCIENCE [id number] Implanted: Qty: 1 on 11/27/2018 by Milton Day MD at [facility] 11/19/2023 [id number] / / [id number] Patch Vasclr Perph 0.8x8cm Vascular Left: Artery, BAX TER Vascu-Guard - [id number] Graft Carotid BIOSC IENCE Implanted: Qty: 1 on 05/29/2019 by Milton Day MD at [facility] Procedures Comments Procedure Name Priority Date/Time Associated Diag nosis POC GLUCOSE Routine 05/30/2019 3:38 PM SHEARING SUPERVISOR POC GLUCOSE Routine 05/30/2019 11:28 AM SHEARING SUPERVISOR POC GLUCOSE Routine 05/30/2019 7:31 AM SHEARING SUPERVISOR POC GLUCOSE Routine 05/30/2019 6:05 AM SHEARING SUPERVISOR PHOSPHORUS LEVEL Routine 05/30/2019 3:31 AM SHEARING SUPERVISOR ESTIMATED GFR Routine 05/30/2019 3:31 AM SHEARING SUPERVISOR MAGNESIUM LEVEL Routine 05/30/2019 3:31 AM SHEARING SUPERVISOR COMPREHENSIVE METABOLIC Routine 05/30/2019 PANEL 3:31 AM SHEARING SUPERVISOR HC COMPLETE BLD COUNT Routine 05/30/2019 W/AUTO DIFF 3:31 AM SHEARING SUPERVISOR IONIZED CALCIUM Routine 05/30/2019 3:31 AM SHEARING SUPERVISOR XR CHEST 1 VW PORTABLE STAT 05/29/2019 8:32 PM SHEARING SUPERVISOR POC GLUCOSE Routine 05/29/2019 8:07 PM SHEARING SUPERVISOR SURGICAL PATHOLOGY Routine 05/29/2019 REQUEST 4:48 PM SHEARING SUPERVISOR ARTERIAL LINE Routine 05/29/2019 4:06 PM SHEARING SUPERVISOR OK AN ELECTIVE Routine 05/29/2019 ENDOTRACHEAL AIRWAY 4:06 PM SHEARING SUPERVISOR ENDARTERECTOMY, CAROTID 05/29/2019 CAROTID STENO SIS 3:33 PM SHEARING SUPERVISOR I65.225 Special Needs SUPINE POC GLUCOSE Routine 05/29/2019 1:17 PM SHEARING SUPERVISOR XR CHEST 2 VW Routine 05/27/2019 Preop testing 10:28 AM SHEARING SUPERVISOR ECG 12-LEAD Routine 05/27/2019 Preop testing 9:58 AM SHEARING SUPERVISOR ESTIMATED GFR Routine 05/27/2019 9:45 AM SHEARING SUPERVISOR HEMOGLOBIN A1C Routine 05/27/2019 Preop testing 9:45 AM SHEARING SUPERVISOR TYPE AND SCREEN Routine 05/27/2019 Preop testing 9:45 AM SHEARING SUPERVISOR PARTIAL THROMBOPLASTIN Routine 05/27/2019 Preop t esting TIME (PTT) 9:45 AM SHEARING SUPERVISOR PROTHROMBIN TIME WITH INR Routine 05/27/2019 Preo p testing 9:45 AM SHEARING SUPERVISOR COMPREHENSIVE METABOLIC Routine 05/27/2019 Preop testing PANEL 9:45 AM SHEARING SUPERVISOR HC COMPLETE BLD COUNT Routine 05/27/2019 Preop te sting W/AUTO DIFF 9:45 AM SHEARING SUPERVISOR POC GLUCOSE Routine 11/29/2018 12:10 PM CDT [...] sting W/AUTO DIFF 11:10 AM CDT after 11/20/2018 Results * POC glucose (05/30/2019 3:38 PM SHEARING SUPERVISOR) Only the most recent of 17 results within the time period is included. Pathologist [facility] POC glucose 175 (H) 65 - 99 mg/dL [place] Comment: CHERELLE SCHWARTZ Meter ID: [id number] [facility] Immersion Metal Cleaner: Josué Whyte Specimen Performing Organization Address City/State/[place] [address] [address] [place] [place], [place] [address] PATHOLOGY AND GENOMIC MEDICINE [place] CHERELLE SCHWARTZ [address] [place] [address] [facility] * Estimated GFR (05/30/2019 3:31 AM SHEARING SUPERVISOR) Only the most recent of 6 results within the time period is included. Pathologist [facility] Estimated GFR >=90 mL/min/1.73 m2 [place] Comment: CHERELLE SCHWARTZ Catergory Units [facility] Interpretation G1 >=90 Normal or high G2 [...] Performing Organization Address City/State/Zipcode Ph one [place] [address] [place] [address] [place], [place] [address] PATHOLOGY AND GENOMIC MEDICINE [facility] [id number] [place] [address] * CBC with platelet and differential (05/30/2019 3:31 AM SHEARING SUPERVISOR) Only the most recent of 6 results within the time period is included. WBC 7.88 4.50 - 11.00 k/uL [facility] RBC 4.03 (L) 4.20 - 5.50 m/uL [facility] HGB 11.1 (L) 12.0 - 16.0 g/dL [facility] HCT 34.6 (L) 37.0 - 47.0 % [facility] MCV 85.9 82.0 - 100.0 fL [facility] MCH 27.5 27.0 - 34.0 pg [facility] MCHC 32.1 31.0 - 37.0 g/dL [facility] RDW - SD 43.9 37.0 - 55.0 fL [facility] MPV 11.0 8.8 - 13.2 fL [facility] Platelet count 231 150 - 400 k/uL [facility] Nucleated RBC 0.00 /100 WBC [facility] Neutrophils 88.5 (H) 39.0 - 69.0 % [facility] Lymphocytes 7.2 (L) 25.0 - 45.0 % [facility] Monocytes 3.6 0.0 - 10.0 % [facility] Eosinophils 0.0 0.0 - 5.0 % [facility] Basophils 0.3 0.0 - 1.0 % [facility] Specimen Blood Performing Organization Address City/State/[place]code [place] [address] [place] [address] PATHOLOGY AND GENOMIC MEDICINE [facility] [address] * Phosphorus level (05/30/2019 3:31 AM SHEARING SUPERVISOR) Phosphorus 4.0 2.4 - 4.5 mg/dL [facility] Specimen Plasma specimen Performing Organization Address City/[facility] [place] [address] [address] [place] [address] PATHOLOGY AND GENOMIC MEDICINE [facility] [address] [address] * Magnesium level (05/30/2019 3:31 AM SHEARING SUPERVISOR) Only the most recent of 3 results within the time period is included. Magnesium 1.8 1.6 - 2.4 mg/dL [facility] Specimen Plasma specimen Performing Organization Address City/State/[facility] Ph one Number [facility] DEPARTMENT OF [facility] [address] [place], [place] [address] PATHOLOGY AND GENOMIC MEDICINE [place] [address] [address] * Ionized calcium (05/30/2019 3:31 AM SHEARING SUPERVISOR) pH 7.34 [facility] Ionized calcium 1.11 1.11 - 1.32 mmol/L [facility] Specimen Plasma specimen Performing Organization Address City/[facility] Ph one Number [place] DEPARTMENT OF [facility] [address] [place] [address] PATHOLOGY AND GENOMIC MEDICINE [place] [address] [address] * Comprehensive metabolic panel (05/30/2019 3:31 AM SHEARING SUPERVISOR) Only the most recent of 6 results within the time period is included. Sodium 134 (L) 135 - 148 mEq/L [facility] Potassium 4.7 3.5 - 5.0 mEq/L [facility] Chloride 100 98 - 112 mEq/L [facility] CO2 23 (L) 24 - 31 mEq/L [facility] Anion gap 11@ANIO 7 - 15 mEq/L [facility] BUN 21 8 - 23 mg/dL [facility] Creatinine 0.60 0.50 - 0.90 mg/dL [facility] Glucose 314 (H) 65 - 99 mg/dL [facility] Calcium 8.8 8.8 - 10.2 mg/dL [facility] Protein 7.2 6.3 - 8.3 g/dL [place] Comment: [facility] Mesgjox7244.6-7.0 g/dL [facility] 1 kdaf1007.4-7.6 g/dL 7 months-0kbbu238.1-7.3 g/dL 1-2 jyokg851.6-7.5 g/dL >3 npgro079.0-8.0 g/dL 18-6358411.3-8.3 g/dL Albumin 4.2 3.5 - 5.0 g/dL [facility] A/G ratio 1.4 0.7 - 3.8 [facility] Alkaline 106 (H) 35 - 104 U/L [place] phosphatase [facility] AST 35 10 - 35 U/L [facility] ALT 33 5 - 50 U/L [facility] Total bilirubin 0.7 0.0 - 1.2 mg/dL [facility] Specimen Plasma specimen Performing Organization Address [facility] Ph one Number [facility] [place] [address] [address] [place] [address] PATHOLOGY AND GENOMIC MEDICINE [facility] [address] [place] [address] [facility] * XR Chest 1 Vw Portable (05/29/2019 8:32 PM SHEARING SUPERVISOR) Only the most recent of 2 results within the time period is included. Specimen Narrative Performed At EXAMINATION: XR CHEST 1 VW PORTABLE [facility] CLINICAL HISTORY: ICU pt stable wit h no clinical status changes IMPRESSION: Aortic arch calcified. Heart is slightl y enlarged. There are scattered areas of subsegmental atelectasis. There is no s egmental infiltrate or effusion. Regional skeleton is intact. [facility]-[id number] Procedure Note Hm Interface, Radiology Results Incoming - 05/29/2019 8:44 PM SHEARING SUPERVISOR EXAMINATION: XR CHEST 1 VW PORTABLE CLINICAL HISTORY: ICU pt stable with no clinical status changes IMPRESSION: Aortic arch calcified. Heart is slightly enlarged. There are scattered areas of subsegmental atelectasis. There is no segmental infiltrate or effusion. Regional skeleton is intact. [facility]-[id number] Performing Organization Address City/[facility] Ph one Number [facility] [address] [place] [address] * Surgical pathology request (05/29/2019 4:48 PM SHEARING SUPERVISOR) Only the most recent of 2 results within the time period is included. [facility] DEPARTMENT OF PATHOLOGY AND GENOMIC MEDICINE Surgical See link below for PDF Lab [facility] pathology Report DEPARTMENT OF report PATHOLOGY AND GENOMIC MEDICINE Result status This is Final Report for [facility] [id number] DEPARTMENT OF PATHOLOGY AND GENOMIC MEDICINE Specimen Performing Organization Address City/State/[place]code [place] [address] [place], [place] [address] PATHOLOGY AND GENOMIC MEDICINE * Arterial line (05/29/2019 4:06 PM SHEARING SUPERVISOR) Narrative Performed At Tai Bloom MD 1 [...] immediate complications * Airway (05/29/2019 4:06 PM SHEARING SUPERVISOR) Narrative Performed At Tai Bloom MD 1 [...] XR Chest 2 Vw (05/27/2019 10:28 AM SHEARING SUPERVISOR) Only the most recent of 2 results within the time period is included. Specimen Narrative Performed At EXAMINATION: XR CHEST 2 VW [facility] CLINICAL HISTORY: Z01.818 Encounter f or other preprocedural examination, preop COMPARISON: To previous examination f rom 11/27/2018 IMPRESSION: Cardiomediastinal silhouette is promine nt. The lungs are clear. [facility]-[id number] Procedure Note Hm Interface, Radiology Results Incoming - 05/27/2019 10:37 AM SHEARING SUPERVISOR EXAMINATION: XR CHEST 2 VW CLINICAL HISTORY: Z01.818 Encounter for other preprocedural examination, preop COMPARISON: To previous examination from 11/27/2018 IMPRESSION: Cardiomediastinal silhouette is prominent. The lungs are clear. [facility]-[id number] Performing Organization Address City/State/[facility] Ph one Number [facility] [address] [place] [address] * ECG 12 lead (05/27/2019 9:58 AM SHEARING SUPERVISOR) Only the most recent of 2 results within the time period is included. Ventricular 63 [facility] MUSE rate Atrial rate 63 [facility] MUSE OK interval 138 [facility] MUSE QRSD interval 94 [...] is n ot available. Performing Organization Address [facility]/Count Includes [facility] one Number [facility] MUSE [address] [place] [address] * Partial thromboplastin time, activated (05/27/2019 9:45 AM SHEARING SUPERVISOR) Only the most recent of 2 results within the time period is included. PTT 30.6 23.0 - 36.0 sec [place] Comment: [facility] PTT therapeutic range for [facility] unfractionated heparin is 61.0-112.0 seconds which corresponds to Anti-Xa 0.3-0.7 U/ml. Specimen Blood Performing Organization Address [facility]/Count Includes [facility] one Number [facility] [address] [place] [address] PATHOLOGY AND [facility] MEDICINE [address] * Prothrombin time with INR (05/27/2019 9:45 AM SHEARING SUPERVISOR) Only the most recent of 2 results within the time period is included. Prothrombin 13.6 11.5 - 14.5 sec [facility] INR 1.1 [place] Comment: [facility] The International Normalized [facility] Ratio (INR) is a therapeutic monitoring tool for patients who are stable on oral anticoagulant therapy. An INR of 2.0-3.0 is suggested for deep vein thrombosis/pulmonary embolism. Specimen Blood Performing Organization Address [facility] one Number [facility] DEPART[facility] [address] [place] [address] PATHOLOGY AND [facility] MEDICINE [address] * Type and screen (05/27/2019 9:45 AM SHEARING SUPERVISOR) Only the most recent of 2 results within the time period is included. ABO grouping O [facility] Rh type POS [facility] Antibody screen NEG [facility] Specimen Blood Performing Organization Address [facility]/Count Includes [facility] one Number [facility] DEPARTMENT OF [address] [place] [address] [place], [place] [address] PATHOLOGY AND [facility] MEDICINE [address] * Hemoglobin A1c (05/27/2019 9:45 AM SHEARING SUPERVISOR) Hemoglobin A1C 9.1 (H) 4.0 - 5.6 % [place] Comment: CHERELLE SCHWARTZ HbA1c cutoffs for diagnosing [facility] diabetes: 4.0% - 5.6% = normal 5.7% - 6.4% = increased risk for diabetes (prediabetes)9 >=6.5% = diabetes9 Goals for glycemic control (ADA 2016) < 7.0% Target for non adults with diabetes. More or less stringent targets may be appropriate for individual patients. <7.5% Target for Children and adolescents with type 1 diabetes. Specimen Blood Performing Organization Address City/State/Zipcode Ph one Number [facility] [place] [address] [address] [place] [address] PATHOLOGY AND GENOMIC MEDICINE [place] CHERELLE SCHWARTZ [address] [place] [place] [address] [facility] after 11/20/2018 Insurance Type Payer Benefit Subscriber ID Effective Phone Address Plan / Dates Group HMO AMERIGROUP AMERIGROUP xxxxxxxxx 2018-P -AMERIVANT resent AGE MCR [facility] Medicaid MEDICAID MEDICAID xxxxxxxxx 2018-P resent Advance Directives For more information, please contact: [phone] Patient Thermograph Operator Explanation Type Date Recorded Advance Directives, 11/25/2018 9:36 AM Living Will and Medical Power of Bottle Washing Machine Operator Date Inactivated Comments Code Status Date Activated 05/30/2019 11:07 PM Full Code 05/29/2019 2:46 PM Code Status decision reached by: Patient
[2019-11-21 03:30] VITALS: BP 178/77
--- NOTE | 2019-11-21 03:30 | NUR ---
patient received to room 298 via stretcher from the emergency room. vss. no c/o chest pain at this time. admit assessment/history obtained. plan of care reviewed with patient.
[2019-11-21] MEDS ORDERED: LASIX20 MG PO (04:18)
[2019-11-21] MEDS ORDERED: LEVOCETIRIZINE D5 MG PO (04:20)
[2019-11-21] MEDS ORDERED: BUSPIRONE HCL7.5 MG PO (04:22)
[2019-11-21] MEDS ORDERED: KLOR-CON M1010 MEQ PO (04:23)
--- NOTE | 2019-11-21 04:35 | NUR ---
patient medicated with tylenol 650mg po for c/o headache 11/22 at this time.
[2019-11-21] MEDS: ACETAMINOPHEN 325 MG TAB PO PRN ×2 (04:37→12:16)
[2019-11-21] MEDS: NITROGLYCERIN 2% OINT 1 GM PKT TOP SCH ×2 (05:51→12:17)
[2019-11-21] MEDS ORDERED: INSULIN REGULAR, HUMAN 100 UNIT/1 ML 3ML VIAL SQ SCH (07:30)
[2019-11-21 08:04] VITALS: BP 113/55
[2019-11-21 08:11] LABS: CREATINE KINASE MB 1.5 ng/mL (0-5.0)
[2019-11-21 08:32] VITALS: BP 113/55
[2019-11-21] MEDS ORDERED: ASPIRIN 81 MG ENTERIC COATED PO SCH (09:00)
[2019-11-21] MEDS ORDERED: METOPROLOL TART25 MG PO (10:54)
[2019-11-21 11:17] LABS: CHOL/HDL RATIO 2.2 (3.0-3.6)
[2019-11-21 11:37] LABS: THYROID STIMULATING HORMONE 3.69 uIU/mL (0.350-4.940)
--- NOTE | 2019-11-21 12:39 | NUR ---
PATIENT DISCHARGED HOME, ALERT WITH NO DISTRESS, DR MENDES HAD ROUNDS, ELEVATED BP 178/85 NOTIFIED TO HIM , NO NEW ORDERS, RECHECKED IN 15 MINS AFTER PATIENT TOOK HER HOME MEDS 148/63, IV REMOVED WITH TIP INTACT, NO SS OF INFILTRATION NOTED, HERE TO PICK HER
--- NOTE | 2019-11-21 16:03 | Consultation ---
DATE OF CONSULTATION: 11/21/2019 REASON FOR CONSULTATION: Chest pain. CHIEF COMPLAINT: Chest pain. HISTORY OF PRESENT ILLNESS: This is a 74-year-old female well known to practice with history of CAD status post left heart catheterization 09/2018, showing 30% ostial LAD, carotid disease status post bilateral carotid endarterectomies 2018, hypertension, diabetes, hyperlipidemia, hypothyroidism, and anxiety. The patient presents to the [facility] ER with complaints of chest pain. Cardiology was consulted to evaluate the patient. The patient is seen in room, in no acute distress. Reports on Sunday, had an episode of chest pain while watching TV, pressure in nature, retrosternal, nonradiating, no specific symptoms, lasted about 3 hours and relieved on its own. However, the patient decided to come on to the ER for further evaluation. Cardiac enzymes negative x2. EKG without changes suggestive of acute event. A long discussion with the patient regarding workup. The patient decided that she wants to go home and followup in the office for ischemic evaluation i.e., stress test this coming Sunday. The patient reports last episode of chest pain was on Sunday, has not had any since. PAST MEDICAL HISTORY: CAD status post left heart catheterization 09/2018, showing 30% ostial LAD, carotid disease status post left CEA on 06/2019, and status post right CEA 10/2018 with at [facility], hypertension, hyperlipidemia, hypothyroidism, anxiety, and diabetes. PAST SURGICAL HISTORY: Appendectomy in 1958, cholecystectomy in 1986, right CEA 10/2018 and left CEA 06/2019. FAMILY HISTORY: Mother age 67, history of Alzheimer and CHF. Father , unknown medical history. SOCIAL HISTORY: She is . 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 Denies any alcohol or tobacco use. ALLERGIES: NO KNOWN ALLERGIES. HOME MEDICATIONS: Include aspirin 81 mg daily, clopidogrel 75 mg daily, atorvastatin 20 mg daily, lisinopril 10 mg daily, furosemide 20 mg daily, potassium chloride 10 mEq daily, Repatha 140 mg subcutaneous injections q.2 weeks, Toujeo 64 units daily, levothyroxine 75 mcg daily, and trazodone 100 mg at bedtime p.r.n. REVIEW OF SYSTEMS: GENERAL: Denies any weight changes, fatigue, weakness, fevers, chills, or night sweats. SKIN: No rashes or bruises. HEENT: Denies any nausea, vomiting, blurred vision, double vision, epistaxis, or sore throat. CARDIAC: Chest pain as per HPI. Denies any palpitations, any orthopnea, PND, or lower extremity edema. Positive for dyspnea on exertion. RESPIRATORY: Denies any shortness of breath, any coughing, or hemoptysis. GI: Reports good appetite. Denies any nausea, vomiting, diarrhea, constipation, any tarry or bloody stools. URINARY: Denies any frequency, urgency, hematuria, or dysuria. VASCULAR: Denies any lower extremity edema or claudication. MUSCULOSKELETAL: Positive for generalized joint pain and back pain. NEUROLOGIC: Denies any tremors, weakness, paralysis, fainting, blackouts, or seizures. HEMATOLOGY: Denies any anemia or easy bruising. ENDOCRINE: Denies any heat or cold intolerance, polyuria, polydipsia, or polyphagia. PHYSICAL EXAMINATION: VITAL SIGNS: Height 63 inches, weight 201 pounds. Temperature 97.8, pulse 65, respiratory rate 20, blood pressure 113/55, and pulse ox 96% on room air. GENERAL: Appears stated age, reliable informant, in no acute distress. SKIN: No rashes or bruises noted. HEENT: Normocephalic. Pupils are equal and reactive. Extraocular movements intact. Trachea midline. Soft carotid bruits noted. Bilateral CEA scars noted. HEART: Regular rate and rhythm. No murmurs or clicks noted. LUNGS: Bilateral breath sounds clear to auscultation. Good airway entry. ABDOMEN: Soft, nontender, and nondistended. No organomegaly noted. MUSCULOSKELETAL: Good muscle strength throughout. No lower extremity edema noted. VASCULAR: +2 radial pulses bilaterally, +1 DP/PT pulses bilaterally. NEUROLOGIC: Cranial nerves 2 through 12 seem intact. LABORATORY DATA: Sodium 139, potassium 4.1, chloride 99, BUN 17, creatinine 1.0, and glucose 217. Troponin 0.018, next 0.013. BNP 21. INR 0.8 and PTT 30. Chest x-ray showing some mild cardiomegaly. EKG showing incomplete right bundle branch block. Heart rate about 85. ASSESSMENT AND PLAN: 1. Coronary artery disease, mild by left heart catheterization, 09/2018. 2. Chest pain. 3. Carotid disease, status post bilateral carotid endarterectomies. 4. Hypertension. 5. Hyperlipidemia. 6. Diabetes. 7. Anxiety. PLAN: 1. The patient presents to [facility] ER with complaints of chest pain. None since Sunday. Cardiac enzymes negative. Long discussion with the patient regarding ischemic evaluation, i.e., stress test. The patient wishes to go home and follow up in the office for evaluation. 2. I advised the patient to continue her antiplatelet/statin therapy. 3. We will add low-dose beta-cody therapy to regimen. 4. Okay to go home from cardiac standpoint, as per the patient wishes and follow up in the office. 5. Advised the patient to go to the nearest ER if any more chest pain. Thank you very much for this consult. Seen and examined Dictated by Ricky Napier NP Rony Tabares MD DC/MANAS /[id number] WILEY
--- NOTE | 2019-11-21 21:29 | Discharge Summary ---
PRIMARY CARE PHYSICIAN: Tracy Velazco MD SUPPLY CHAIN PROGRAM MANAGER: Rony Tabares MD FINAL DIAGNOSIS: Atypical chest pain more likely anxiety attack. SUMMARY: A 74-year-old female with multiple medical problem, came to the hospital with atypical chest pain. Cardiac enzymes were negative. The patient was seen by Dr. Tabares. EKG is normal sinus rhythm. The patient is otherwise stable. She is comfortable. She does want to go home and I agreed. Dr. Rony Tabares has cleared the patient for discharge home as well. The patient had recent left heart catheterization last year. The patient is stable. She will have a stress test scheduled nonemergent as an outpatient. The patient is stable, discharged home today. Resume home medication. MD JONY Amador/MANAS /[id number]
== END 2019-11-21 12:40 | disposition home or self-care (01) ==
LOC: ER 22:16 → ERHOLD 11-21 00:31 → MED/SURG3 11-21 01:13
PROVIDERS: ADMIT Internal Medicine; ATTEND Internal Medicine
DX: R07.2 Precordial pain (principal); E11.42 Type 2 diabetes mellitus with diabetic polyneuropathy; I10 Essential (primary) hypertension; I25.10 Atherosclerotic heart disease of native coronary artery without angina pectoris; E03.9 Hypothyroidism, unspecified; Z87.442 Personal history of urinary calculi; E78.5 Hyperlipidemia, unspecified; Z82.49 Family history of ischemic heart disease and other diseases of the circulatory system; Z83.3 Family history of diabetes mellitus; E66.9 Obesity, unspecified; Z68.35 Body mass index [BMI] 35.0-35.9, adult; F41.9 Anxiety disorder, unspecified
CPT/HCPCS: 36415 ×2; 71045; 80053; 80061; 82550 ×2; 82553 ×2; 82948; 83880; 84443; 84484 ×2; 85025; 85610; 85730; 93005; 93306; 99284; G0378

== ENCOUNTER 2019-12-01 08:13 | Emergency (ER) | payer MEDICARE ==
[~2019-12-01] VITALS: Ht 160 cm; Wt 91.2 kg
[~2019-12-01 08:13] MED LIST changes: +BUSPIRONE HCL7.5 MG PO; +KLOR-CON M1010 MEQ PO; +LASIX20 MG PO; +LEVOCETIRIZINE D5 MG PO; +METOPROLOL TART25 MG PO
--- OUTSIDE RECORDS SUMMARY | 2019-12-01 08:16 | XMS REPORT | Clinical Summary ---
Author Author [employer] Organization [employer] Address Unknown Phone Unavailable Care Team Providers Care Full Stack Software Developer Name Role Phone Tracy Velazco MD PCP [...] Type Specialty Tai Bloom MD Ali, Faisal, ENRIQUE 05/29/2019 Anesthesia General Surgery Event Milton Day MD ENDARTERECTOMY, LEFT CAROTID 05/29/2019 Surgery General Surgery Milton Day MD 05/29/2019 Hospital Intensive Care - Encounter 05/30/2019 Milton Day MD Preop testing (Primary Dx) 05/27/2019 Pre-Admit Pre-Admission Testi ng Testing Appointment Milton Day MD Preop testing 05/27/2019 Hospital Radiology Encounter after 11/30/2018 Family History Relation Name Status Comments Father [...] Comments Vital Sign 142/65 05/30/2019 6:00 PM PARTS COORDINATOR Blood Pressure 84 05/30/2019 6:00 PM PARTS COORDINATOR Pulse 37 C (98.6 F) 05/30/2019 1:00 PM PARTS COORDINATOR Temperature 21 05/30/2019 6:00 PM PARTS COORDINATOR Respiratory Rate 92% 05/30/2019 6:00 PM PARTS COORDINATOR Oxygen Saturation - - Inhaled Oxygen Concentration 94 kg (207 lb 3.7 oz) 05/30/2019 4:00 AM PARTS COORDINATOR Weight 160 cm (5' 3") 05/29/2019 12:49 PM PARTS COORDINATOR Height 36.71 05/29/2019 12:49 PM PARTS COORDINATOR Body Mass Index Plan of Treatment Health [...] Manufactur er 03/15/2024 [id number] / / [id number] Section Beamer Mltpl Clip Ligaclip Ligtng Surgical Left: Arter y, ETHICON 20 Clips 29.2cm Med Ti - [id number] Implants; Carotid ENDO Implanted: Qty: 1 on 05/29/2019 by [employer]and[employer]; DANYEL Milton Hall MD Extenders; at [facility] Surgical Wires 10/14/2023 [id number] / / [id number] Section Beamer Mltpl Clip Ligaclip Ligtng Surgical Left: Arter y, ETHICON 20 Clips 23.8cm Sm Ti - [id number] Implants; Carotid ENDO Implanted: Qty: 1 on 05/29/2019 by [employer]; DANYEL Milton Hall MD Extenders; at [facility] Surgical Wires 03/15/2023 [id number] / [id number] / [id number] Patch Vasclr Perph 0.8x8cm Vascular Right: Artery, BAX TER Vascu-Guard - [id number] - Graft Carotid BIOSCIENCE [id number] Implanted: Qty: 1 on 11/27/2018 by Milton Day MD at [facility] 11/19/2023 [id number] / / [id number] Patch Vasclr Perph 0.8x8cm Vascular Left: Artery, BAX TER Vascu-Guard - [id number] Graft Carotid BIOSC IENCE Implanted: Qty: 1 on 05/29/2019 by Milton Day MD at [facility] Procedures Comments Procedure Name Priority Date/Time Associated Diag nosis POC GLUCOSE Routine 05/30/2019 3:38 PM PARTS COORDINATOR POC GLUCOSE Routine 05/30/2019 11:28 AM PARTS COORDINATOR POC GLUCOSE Routine 05/30/2019 7:31 AM PARTS COORDINATOR POC GLUCOSE Routine 05/30/2019 6:05 AM PARTS COORDINATOR PHOSPHORUS LEVEL Routine 05/30/2019 3:31 AM PARTS COORDINATOR ESTIMATED GFR Routine 05/30/2019 3:31 AM PARTS COORDINATOR MAGNESIUM LEVEL Routine 05/30/2019 3:31 AM PARTS COORDINATOR COMPREHENSIVE METABOLIC Routine 05/30/2019 PANEL 3:31 AM PARTS COORDINATOR HC COMPLETE BLD COUNT Routine 05/30/2019 W/AUTO DIFF 3:31 AM PARTS COORDINATOR IONIZED CALCIUM Routine 05/30/2019 3:31 AM PARTS COORDINATOR XR CHEST 1 VW PORTABLE STAT 05/29/2019 8:32 PM PARTS COORDINATOR POC GLUCOSE Routine 05/29/2019 8:07 PM PARTS COORDINATOR SURGICAL PATHOLOGY Routine 05/29/2019 REQUEST 4:48 PM PARTS COORDINATOR ARTERIAL LINE Routine 05/29/2019 4:06 PM PARTS COORDINATOR NH AN ELECTIVE Routine 05/29/2019 ENDOTRACHEAL AIRWAY 4:06 PM PARTS COORDINATOR ENDARTERECTOMY, CAROTID 05/29/2019 CAROTID STENO SIS 3:33 PM PARTS COORDINATOR I65.225 Special Needs SUPINE POC GLUCOSE Routine 05/29/2019 1:17 PM PARTS COORDINATOR XR CHEST 2 VW Routine 05/27/2019 Preop testing 10:28 AM PARTS COORDINATOR ECG 12-LEAD Routine 05/27/2019 Preop testing 9:58 AM PARTS COORDINATOR ESTIMATED GFR Routine 05/27/2019 9:45 AM PARTS COORDINATOR HEMOGLOBIN A1C Routine 05/27/2019 Preop testing 9:45 AM PARTS COORDINATOR TYPE AND SCREEN Routine 05/27/2019 Preop testing 9:45 AM PARTS COORDINATOR PARTIAL THROMBOPLASTIN Routine 05/27/2019 Preop t esting TIME (PTT) 9:45 AM PARTS COORDINATOR PROTHROMBIN TIME WITH INR Routine 05/27/2019 Preo p testing 9:45 AM PARTS COORDINATOR COMPREHENSIVE METABOLIC Routine 05/27/2019 Preop testing PANEL 9:45 AM PARTS COORDINATOR HC COMPLETE BLD COUNT Routine 05/27/2019 Preop te sting W/AUTO DIFF 9:45 AM PARTS COORDINATOR after 11/30/2018 Results * POC glucose (05/30/2019 3:38 PM PARTS COORDINATOR) Only the most recent of 6 results within the time period is included. Pathologist [facility] POC glucose 175 (H) 65 - 99 mg/dL [place] Comment: CHERELLE SCHWARTZ Meter ID: [id number] [facility] Heel Seam Rubber: Josué Whyte Specimen Performing Organization Address City/State/[facility] [place] [address] [place], [place] [address] PATHOLOGY AND GENOMIC MEDICINE [place] CHERELLE SCHWARTZ [address] [place] [address] [facility] * Estimated GFR (05/30/2019 3:31 AM PARTS COORDINATOR) Only the most recent of 2 results within the time period is included. Pathologist [facility] Estimated GFR >=90 mL/min/1.73 m2 [place] Comment: CHERELLE SCHWARTZ Catergory Units [facility] Interpretation G1 >=90 Normal or high G2 [...] 2014. Specimen Plasma specimen Performing Organization Address City/State/[facility] Ph one Number [facility] [place] [address] [place] [address] PATHOLOGY AND GENOMIC MEDICINE [facility] [address] [address] * CBC with platelet and differential (05/30/2019 3:31 AM PARTS COORDINATOR) Only the most recent of 2 results within the time period is included. WBC 7.88 4.50 - 11.00 k/uL [facility] RBC 4.03 (L) 4.20 - 5.50 m/uL [facility] HGB 11.1 (L) 12.0 - 16.0 g/dL [facility] HCT 34.6 (L) 37.0 - 47.0 % [facility] MCV 85.9 82.0 - 100.0 fL [facility] MCH 27.5 27.0 - 34.0 pg [facility] MCHC 32.1 31.0 - 37.0 g/dL [facility] RDW - SD 43.9 37.0 - 55.0 fL [facility] MPV 11.0 8.8 - 13.2 fL [facility] Platelet count 231 150 - 400 k/uL [facility] Nucleated RBC 0.00 /100 WBC [facility] Neutrophils 88.5 (H) 39.0 - 69.0 % [facility] Lymphocytes 7.2 (L) 25.0 - 45.0 % [facility] Monocytes 3.6 0.0 - 10.0 % [facility] Eosinophils 0.0 0.0 - 5.0 % [facility] Basophils 0.3 0.0 - 1.0 % [facility] Specimen Blood Performing Organization Address City/State/[place] Ph one Number [facility] [place] [address] [address] [place], [place] [address] PATHOLOGY AND GENOMIC MEDICINE [facility] [address] [address] * Phosphorus level (05/30/2019 3:31 AM PARTS COORDINATOR) Phosphorus 4.0 2.4 - 4.5 mg/dL [facility] Specimen Plasma specimen Performing Organization Address City/[facility] Ph one Number [facility] [place] [address] [place], [place] [address] PATHOLOGY AND GENOMIC MEDICINE [facility] [address] * Magnesium level (05/30/2019 3:31 AM PARTS COORDINATOR) Magnesium 1.8 1.6 - 2.4 mg/dL [facility] Specimen Plasma specimen Performing Organization Address City/[facility] Ph one Number [facility] [place] [address] [place] [place], [place] [address] PATHOLOGY AND GENOMIC MEDICINE [facility] [address] * Ionized calcium (05/30/2019 3:31 AM PARTS COORDINATOR) pH 7.34 [facility] Ionized calcium 1.11 1.11 - 1.32 mmol/L [facility] Specimen Plasma specimen Performing Organization Address [facility] Ph one Number [facility] [place] [address] [address] [place] [address] PATHOLOGY AND GENOMIC MEDICINE [facility] [address] * Comprehensive metabolic panel (05/30/2019 3:31 AM PARTS COORDINATOR) Only the most recent of 2 results within the time period is included. Sodium 134 (L) 135 - 148 mEq/L [facility] Potassium 4.7 3.5 - 5.0 mEq/L [facility] Chloride 100 98 - 112 mEq/L [facility] CO2 23 (L) 24 - 31 mEq/L [facility] Anion gap 11@ANIO 7 - 15 mEq/L [facility] BUN 21 8 - 23 mg/dL [facility] Creatinine 0.60 0.50 - 0.90 mg/dL [facility] Glucose 314 (H) 65 - 99 mg/dL [facility] Calcium 8.8 8.8 - 10.2 mg/dL [facility] Protein 7.2 6.3 - 8.3 g/dL [place] Comment: [place] 1385294.6-7.0 g/dL [facility] 1 jaac9185.4-7.6 g/dL 7 months-9faxr486.1-7.3 g/dL 1-2 squla996.6-7.5 g/dL >3 jzpnu749.0-8.0 g/dL 18-4116494.3-8.3 g/dL Albumin 4.2 3.5 - 5.0 g/dL [facility] A/G ratio 1.4 0.7 - 3.8 [facility] Alkaline 106 (H) 35 - 104 U/L [place] phosphatase [facility] AST 35 10 - 35 U/L [facility] ALT 33 5 - 50 U/L [facility] Total bilirubin 0.7 0.0 - 1.2 mg/dL [facility] Specimen Plasma specimen Performing Organization Address [facility] Ph one Number [facility] DEPARTMENT OF [address] [place] [address] [place], [place] [address] PATHOLOGY AND GENOMIC MEDICINE [address] [place] [address] [facility] * XR Chest 1 Vw Portable (05/29/2019 8:32 PM PARTS COORDINATOR) Specimen Narrative Performed At EXAMINATION: XR CHEST 1 VW PORTABLE [facility] CLINICAL HISTORY: ICU pt stable wit h no clinical status changes IMPRESSION: Aortic arch calcified. Heart is slightl y enlarged. There are scattered areas of subsegmental atelectasis. There is no s egmental infiltrate or effusion. Regional skeleton is intact. [facility]-[id number] Procedure Note Hm Interface, Radiology Results Incoming - 05/29/2019 8:44 PM PARTS COORDINATOR EXAMINATION: XR CHEST 1 VW PORTABLE CLINICAL HISTORY: ICU pt stable with no clinical status changes IMPRESSION: Aortic arch calcified. Heart is slightly enlarged. There are scattered areas of subsegmental atelectasis. There is no segmental infiltrate or effusion. Regional skeleton is intact. [facility]-[id number] Performing Organization Address City/[facility] Ph one Number [facility] [address] [place] [address] * Surgical pathology request (05/29/2019 4:48 PM PARTS COORDINATOR) [facility] DEPARTMENT OF PATHOLOGY AND GENOMIC MEDICINE Surgical See link below for PDF Lab [facility] pathology Report DEPARTMENT OF report PATHOLOGY AND GENOMIC MEDICINE Result status This is Final Report for [facility] [id number] DEPARTMENT OF PATHOLOGY AND GENOMIC MEDICINE Specimen Performing Organization Address City/State/Zipcode Ph one Number [facility] [place] [place] [address] [address] [place] [address] PATHOLOGY AND GENOMIC MEDICINE * Arterial line (05/29/2019 4:06 PM PARTS COORDINATOR) Narrative Performed At Tai Bloom MD 1 [...] immediate complications * Airway (05/29/2019 4:06 PM PARTS COORDINATOR) Narrative Performed At Tai Bloom MD 1 [...] XR Chest 2 Vw (05/27/2019 10:28 AM PARTS COORDINATOR) Specimen Narrative Performed At EXAMINATION: XR CHEST 2 VW [facility] CLINICAL HISTORY: Z01.818 Encounter f or other preprocedural examination, preop COMPARISON: To previous examination f rom 11/27/2018 IMPRESSION: Cardiomediastinal silhouette is promine nt. The lungs are clear. [facility]-[id number] Procedure Note Hm Interface, Radiology Results Incoming - 05/27/2019 10:37 AM PARTS COORDINATOR EXAMINATION: XR CHEST 2 VW CLINICAL HISTORY: Z01.818 Encounter for other preprocedural examination, preop COMPARISON: To previous examination from 11/27/2018 IMPRESSION: Cardiomediastinal silhouette is prominent. The lungs are clear. [facility]-[id number] Performing Organization Address [facility] one Number [facility] [address] [place] [address] * ECG 12 lead (05/27/2019 9:58 AM PARTS COORDINATOR) Ventricular 63 [facility] MUSE rate Atrial rate [...] is n ot available. Performing Organization Address [facility] one Number [facility] [address] [place] [address] * Partial thromboplastin time, activated (05/27/2019 9:45 AM PARTS COORDINATOR) PTT 30.6 23.0 - 36.0 sec [place] Comment: MORMON CLEAR PTT therapeutic range for [facility] unfractionated heparin is 61.0-112.0 seconds which corresponds to Anti-Xa 0.3-0.7 U/ml. Specimen Blood Performing Organization Address [facility] one Number [facility] [place] [address] [address] [place] [address] PATHOLOGY AND GENOMIC MEDICINE [address] * Prothrombin time with INR (05/27/2019 9:45 AM PARTS COORDINATOR) Prothrombin 13.6 11.5 - 14.5 sec [facility] INR 1.1 [place] Comment: CHERELLE SCHWARTZ The International Normalized [facility] Ratio (INR) is a therapeutic monitoring tool for patients who are stable on oral anticoagulant therapy. An INR of 2.0-3.0 is suggested for deep vein thrombosis/pulmonary embolism. Specimen Blood Performing Organization Address [facility] one Number [facility] DEPARTMENT OF [address] [place] [address]. [place] [address] PATHOLOGY AND [facility] MEDICINE [place] [address] [address] * Type and screen (05/27/2019 9:45 AM PARTS COORDINATOR) ABO grouping O [facility] Rh type POS [facility] Antibody screen NEG [facility] Specimen Blood Performing Organization Address [facility] one Number [facility] DEPARTMENT OF Critical access hospital [address] [place] [address] PATHOLOGY AND GENOMIC MEDICINE [address] * Hemoglobin A1c (05/27/2019 9:45 AM PARTS COORDINATOR) Hemoglobin A1C 9.1 (H) 4.0 - 5.6 % [place] Comment: CHERELLE SCHWARTZ HbA1c cutoffs for diagnosing [facility] diabetes: 4.0% - 5.6% = normal 5.7% - 6.4% = increased risk for diabetes (prediabetes)9 >=6.5% = diabetes9 Goals for glycemic control (ADA 2016) < 7.0% Target for non adults with diabetes. More or less stringent targets may be appropriate for individual patients. <7.5% Target for Children and adolescents with type 1 diabetes. Specimen Blood Performing Organization Address City/State/Zipcode Ph [place] [address] [address] [place], [place] [address] PATHOLOGY AND GENOMIC MEDICINE [facility] [address] 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
--- OUTSIDE RECORDS SUMMARY | 2019-12-01 08:16 | XMS REPORT | Clinical Summary ---
Author Author [facility] Address Unknown Phone Unavailable Care Team Providers Care Accounts Payable Processor Name Role Phone Doneker PCP Unavailable Allergies [...] Not on file Results Not on fileafter 11/30/2018 Insurance Payer Benefit Subscriber ID Type Phone Address Plan / Group [employer] [facility] ALL Contracted MEDICAID MEDICAID xxxxxxxxx Medicaid [place] Advance Directives For more information, please contact: [facility] [address] [place] [id number] Date Inactivated Comments Code Status Date [...]
[2019-12-01] MEDS ORDERED: SODIUM CHLORIDE 0.9% 1000ML 1,000 ML IV STA (08:17)
--- OUTSIDE RECORDS SUMMARY | 2019-12-01 08:17 | XMS REPORT ---
Author Author [facility] t Organization [facility] t Address [address] [place] [address] Phone Unavailable Support Name Relationship Address Phone CHELSEA QUINTANILLA PRS [address] [place] [address] [address] UNKNOWN [place], [place] [id number] [address] [place], [place] [id number] ELVIA ABEL, Tj GLEZ Caregiver [address] [facility] [facility] [address] [place] [address] PROSPER ABEL, Ne SILVA Caregiver [address] [place] [address] LANA ABEL, Ne KANG Caregiver [address] [place] [address] Unavailable GURPREET GARCIA Next Of Kin [address] [place], [place] [id number] VAUGHN ABEL, ASHLEIGH Caregiver [address] [facility] [address] [place] [address] JANELLE ABEL, T SARI Caregiver [address] [place] [address] Unavailable MD HAO ANDERSON MD Caregiver [address] [place] [address] DALLAS ABEL, [facility] Caregiver [address] [facility] [place] [address] GUS ABEL, [place] MAC Caregiver [address] [place] [address] Unavailable MD Jason GAGNON PRS [address] [place] [address] MD DALLAS KAUR PRS [address] [place] [address] CHELSEA QUINTANILLA PRS [address] [place] [address] [address] [place] [address] CHELSEA QUINTANILLA PRS [address] [place] [address] Gurpreet Rodrigues ECON Unknown Care Team Providers Care Director Dermatology Name Role Phone DALLAS ABEL, MD DIETRICH PCP Jason GAGNON Attphys Unavailable Shay ABEL, Yolette Rose Attphys [phone] Merle ABEL, Jonah Lujan Attphys [phone] Sinan Nagy CRNA Attphys Ne SCHWARTZ Attphys Unavailable [place] WEBER Attphys Unavailable Alda MANNING Attphys Unavailable Tj GAN Attphys Unavailable Tj GAN Admphys Unavailable Payers Payer Name Policy Type Policy Number Effective Date Expiration Date S gabriela AMERIGROUPAMERIGROUP-[facility] [id number] 2018 00:00:00 [facility] [id number] xxxxxxxxx 2018 00:00:00 [facility] [id number] 2018 00:00:00 [facility] [employer] [id number] 2011 00:00:00 [facility] [id number] 2018 00:00:00 [facility] [employer] [id number] 2011 00:00:00 [facility] [id number] 2018 00:00:00 [facility] [employer] [id number] 2018 00:00:00 [facility] [employer] [id number] 2017 00:00:00 [facility] [id number] 2015 00:00:00 [facility] Advance Directives Directive Decision Effective Date Termination Date Comments Sour ce Yes N/A [facility] Problems Condition Name Condition Details Condition Category Status Onset Date Resolution Date Last Treatment Date Treating Clinician Comments Source Left carotid stenosis Left carotid stenosis Disease Active 201 03-26-14 00:00:00 Sunshine Kevin t Carotid artery calcification, right Carotid artery calcification , right Disease Active 2018-11-27 00:00:00 [facility] Chest pain Chest pain Problem Active 2015-09-08 00:00:00 [facility] Type 2 diabetes mellitus with hyperglycemia Hyperglyce della due to type 2 diabetes mellitus Problem Active [facility] Hypertension Hypertension Problem Active [facility] Urinary tract infection Urinary tract infection Problem Active [facility] Diabetes mellitus Diabetes Problem Active [facility] Unstable angina pectoris Unstable angina Problem Active [facility] Dyspnea Dyspnea Problem Active [facility] Allergies, Adverse Reactions, Alerts Allergy Name Allergy Type Status Severity Reaction(s) Onset Date Inacti ve Date Treating Clinician Comments Source No Known Allergies DA Active U 2017-04-24 00:00:00 [facility] Social History Social Habit Start Date Stop Date Quantity Comments Source History of tobacco use Cigarette Smoker Jong Mcdonald Sex Assigned At Feliz Mcdonald Cigarettes smoked current (pack per day) - Reported 00:00:00 2019-05-30 00:00:00 Jong Mcdonald Cigarette pack-years 2019-05-30 00:00:00 2019-05-30 00:00:00 Jong Mcdonald Alcohol intake 2019-05-30 00:00:00 2019-05-30 00:00:00 Current drinker of alcohol (finding) Jong Mcdonald Alcohol Comment 2019-05-29 00:00:00 2019-05-29 00:00:00 occasionally [facility] Smoking Status Start Date Stop Date Source Former smoker 2019-05-30 00:00:00 2019-05-30 00:00:00 Jong Mcdonald Medications Ordered Medication Name Filled Medication Name Start Date Stop Da te Current Medication? Ordering Clinician Indication Dosage Frequency Signature (SIG) Comments Components Source hydroCHLOROthiazide (HYDRODIURIL) 12.5 MG tablet 2019-05-31 01:07:37 Yes 12.5mg QD Take 12.5 mg by mouth daily. Jong Mcdonald ergocalciferol (VITAMIN D2) 50,000 unit capsule 2019-05-31 01:07 :37 Yes [id number] Q7D Take 50,000 Units by mouth once a week. Jong Mcdonald traZODone (DESYREL) 100 MG tablet 2019-05-31 01:07:37 Yes 100mg QD Take 100 mg by mouth nightly. Jong cisse lisinopril (PRINIVIL,ZESTRIL) 40 mg tablet 2019-05-31 01:07:37 Yes 20mg QD Take 20 mg by mouth daily. Sherice Mcdonald levothyroxine (SYNTHROID, LEVOXYL) 75 mcg tablet 2019-05-31 01:07:37 Yes 75ug QD Take 75 mcg by mouth daily. Jong Mcdonald escitalopram (LEXAPRO) 10 MG tablet 2019-05-31 01:07:37 Yes 10mg QD Take 10 mg by mouth daily. Jong Mcdonald donepezil (ARICEPT) 10 MG tablet 2019-05-31 01:07:37 Yes 10mg QD Take 10 mg by mouth nightly. Jong Mcdonald aspirin 325 MG tablet 2019-05-31 01:07:37 Yes 325mg QD Take 325 mg by mouth daily. Jong Mcdonald clopidogrel (PLAVIX) 75 mg tablet 2019-05-31 01:07:37 Yes 75mg QD Take 75 mg by mouth daily. Jong Mcdonald calcium carbonate (CALCIUM 600 ORAL) 2019-05-31 01:07:37 Ye s 1{tbl} QD Take 1 tablet by mouth daily. Jong qureshi atorvastatin (LIPITOR) 80 MG tablet 2019-05-31 01:07:37 Yes 80mg QD Take 80 mg by mouth daily. Jong Mcdonald metFORMIN (GLUCOPHAGE) 1,000 mg tablet 2019-05-31 01:07:37 Yes 1000mg Q.5D Take 1,000 mg by mouth 2 (two) times a day with meals. Jong Mcdonald insulin lispro (HumaLOG KwikPen Insulin) 100 unit/mL injecti on pen 2019-05-31 01:07:37 Yes 20U Q.[id number] 3D Inject 20 Units under the skin 3 (three) times a day before meals. This is basal rate, pt uses additional per sliding scale; if glucose over 130 pt will add more units. Family to bring in sliding scale Jong Mcdonald insulin glargine U-300 conc 300 unit/mL (3 mL) insulin pen 2019-05-31 01:07:37 Yes 65U QD Inject 65 Units under the skin nightly. Jong Mcdonald levocetirizine (XYZAL) 5 MG tablet 2019-05-31 01:07:37 Yes 5mg Q24H Take 5 mg by mouth daily as needed for allergies. Jong Mcdonald famotidine (PEPCID) 40 MG tablet 2019-05-31 01:07:37 Yes 40mg QD Take 40 mg by mouth daily. Jong Mcdonald cyclobenzaprine (FLEXERIL) 5 mg tablet 2019-05-31 01:07:37 Yes 5mg Q.[id number] Take 5 mg by mouth 3 (three) times a day as needed for muscle spasms. Jong Mcdonald gabapentin (NEURONTIN) 100 mg capsule 2019-05-30 18:16 :20 2019-05-30 00:00:00 No 100mg QD Take 100 mg by mouth nightly. Jong Mcdonald HYDROcodone-acetaminophen (NORCO) 7.5-325 mg per tablet 2019-05-29 18:52:24 2019-05-29 00:00:00 [place] [id number] 1{tbl} Q6H Take 1 tablet by mouth every 6 (six) hours as needed for moderate pain .Acute Pain. Jong Mcdonald Insulin Detemir Insulin Detemir 2017-12-25 10:13:00 2019-04-29 00:00:[address] [facility] Insulin Lispro Insulin Lispro 2017-12-25 10:13:00 2019-04-29 00:00:[address] [facility] Aspirin (Aspirin Enteric Coated) 325 Mg TABEC Aspirin (Aspirin Enteric Coated) 325 Mg TABEC Yes [address] [facility] Buspirone Hcl Buspirone Hcl Yes 5 [facility] Cholecalciferol (Vitamin D3) (Vitamin D) 1,000 Unit TA BLET Cholecalciferol (Vitamin D3) (Vitamin D) 1,000 Unit TABLET Yes 1 [facility] Clopidogrel Bisulfate (Clopidogrel) 75 Mg TABLET Clopi dogrel Bisulfate (Clopidogrel) 75 Mg TABLET Yes 75 [facility] Donepezil Hcl (Aricept) 5 Mg TABLET Donepezil Hcl (Aricept) 5 Mg TABL ET Yes 10 [facility] Escitalopram Oxalate (Lexapro) 10 Mg TABLET Escitalopr am Oxalate (Lexapro) 10 Mg TABLET Yes 10 [facility] Famotidine Famotidine Yes 40 [facility] Furosemide (Lasix) 20 Mg TABLET Furosemide (Lasix) 20 Mg TABLET Yes 20 [facility] Insulin Glargine,Hum.rec.anlog (Toujeo Solostar) 300 U nit/1 Ml INSULN.PEN Insulin Glargine,Hum.rec.anlog (Toujeo Solostar) 300 Unit/1 Ml INSULN.PEN Yes 64 [facility] Insulin Lispro (Humalog) 100 Unit/1 Ml CARTRIDGE Insul in Lispro (Humalog) 100 Unit/1 Ml CARTRIDGE Yes 15 [facility] Levocetirizine Dihydrochloride Levocetirizine Dihydrochloride Yes 5 [facility] Levothyroxine Sodium Levothyroxine Sodium Yes 75 [facility] Lisinopril Lisinopril Yes 40 [facility] Metformin Hcl Metformin Hcl Yes 1000 [facility] Metoprolol Tartrate Metoprolol Tartrate Yes 25 [facility] Potassium Chloride (Klor-Con M10) 10 Meq TAB.ER.PRT Po tassium Chloride (Klor-Con M10) 10 Meq TAB.ER.PRT Yes 10 [facility] Trazodone Hcl Trazodone Hcl Yes 100 [facility] Alprazolam (Xanax) 0.25 Mg TABLET Alprazolam (Xanax) 0.25 Mg TAB LET 2019-11-21 00:00:00 No .25 [facility] Atorvastatin Calcium Atorvastatin Calcium 2019-04-29 00:00:00 No 80 [facility] Gabapentin Gabapentin 2019-04-29 00:00:00 No 300 [facility] Hydrochlorothiazide Hydrochlorothiazide 2019-04-29 00:00:00 No 12.5 [facility] Magnesium Hydroxide (Milk Of Magnesia) 400 Mg/5 Ml ORA L.SUSP Magnesium Hydroxide (Milk Of Magnesia) 400 Mg/5 Ml ORAL.SUSP 2019-04-29 00:00:00 No 30 [facility] Sennosides (Senna Lax) 8.6 Mg TABLET Sennosides (Senna Lax) 8.6 Mg TABLET 2019-04-29 00:00:00 No 1 [facility] Cholecalciferol (Vitamin D3) (Vitamin D) 1,000 Unit TA BLET Cholecalciferol (Vitamin D3) (Vitamin D) 1,000 Unit TABLET 2018-10-06 00:00:[address] [facility] Escitalopram Oxalate (Lexapro) 10 Mg TABLET Escitalopr am Oxalate (Lexapro) 10 Mg TABLET 2018-10-06 00:00:00 No 10 [facility] Hydrochlorothiazide Hydrochlorothiazide 2018-10-06 00:00:00 No 12.5 [facility] Metformin Hcl Metformin Hcl 2018-10-06 00:00:00 No 1000 [facility] Amlodipine Besylate Amlodipine Besylate 2018-10-01 00:00:00 No 5 [facility] Aspirin Aspirin 2018-10-01 00:00:00 No 81 [facility] Tramadol Hcl (Ultram) 50 Mg TABLET Tramadol Hcl (Ultram) 50 Mg T ABLET 2018-10-01 00:00:00 No 50 [facility] Insulin Detemir (Levemir) 100 Unit/1 Ml VIAL Insulin D etemir (Levemir) 100 Unit/1 Ml VIAL 2017-12-25 00:00:00 No 40 [facility] Insulin Glargine (Lantus 3ML Pen) 100 Units/1 Ml INJ I nsulin Glargine (Lantus 3ML Pen) 100 Units/1 Ml INJ 2017-12-25 00:00:00 No 40 [facility] Metaglip Metaglip 2017-12-24 00:00:00 No 1 [facility] Duloxetine Hcl (Cymbalta) 30 Mg CAPSULE. Duloxetine Hcl (Cymbalta) 30 Mg CAPSULE. 2017-12-23 00:00:00 No 30 [facility] Famotidine Famotidine 2017-12-23 00:00:00 No 20 [facility] Hydrochlorothiazide Hydrochlorothiazide 2017-12-23 00:00:00 No 12.5 [facility] Meclizine Hcl (Antivert) 12.5 Mg TABLET Meclizine Hcl (Antiv ert) 12.5 Mg TABLET 2017-12-23 00:00:00 No 12.5 [facility] Metformin Hcl Metformin Hcl 2017-12-23 00:00:00 No 500 [facility] Omeprazole Omeprazole 2017-12-23 00:00:00 No 20 [facility] Vital Signs Vital Name Observation Time Observation Value Comments Source Body Temperature 2019-11-21 08:32:00 97.8 [degF] [facility] Weight 2019-11-21 03:30:00 201.19 [lb_av] [facility] BMI (Body Mass Index) 2019-11-21 03:30:00 35.6 kg/m2 [facility] Systolic blood pressure 2019-05-31 00:00:00 142 mm[Hg] Jong Mcdonald Diastolic blood pressure 2019-05-31 00:00:00 65 mm[Hg] Jong Mcdonald Heart rate 2019-05-31 00:00:00 84 /min Jong Mcdonald Respiratory rate 2019-05-31 00:00:00 21 /min Costa Mcdonald Oxygen saturation in Arterial blood by Pulse oximetry 2018-07 00:00:00 92 /min Jong Mcdonald Body temperature 2019-05-30 19:00:00 37 Latoya Costa Mcdonald Body weight 2019-05-30 10:00:00 94 kg Jong Mcdonald BMI 2019-05-30 10:00:00 36.71 kg/m2 Jong Mcdonald Body height 2019-05-29 18:49:00 160 cm Jong Mcdonald Procedures Procedure Date / Time Performed Performing Clinician Sourc e POC GLUCOSE 2019-05-30 21:38:00 Milton Day POC GLUCOSE 2019-05-30 17:28:00 Milton Day [facility] POC GLUCOSE 2019-05-30 13:31:00 Milton Day [facility] POC GLUCOSE 2019-05-30 12:05:00 Milton Day IONIZED CALCIUM 2019-05-30 09:31:00 Chary Jaime HC COMPLETE BLD COUNT W/AUTO DIFF 2019-05-30 09:31:00 Milton Ashby COMPREHENSIVE METABOLIC PANEL 2019-05-30 09:31:00 Milton Messina MAGNESIUM LEVEL 2019-05-30 09:31:00 Milton Day ESTIMATED GFR 2019-05-30 09:31:00 Milton Day PHOSPHORUS LEVEL 2019-05-30 09:31:00 Milton Day XR CHEST 1 VW PORTABLE 2019-05-30 02:32:00 Christian Day POC GLUCOSE 2019-05-30 02:07:00 Milton Day SURGICAL PATHOLOGY REQUEST 2019-05-29 22:48:00 Sol Day ARTERIAL LINE 2019-05-29 22:06:46 Tai Bloom [place] AN ELECTIVE ENDOTRACHEAL AIRWAY 2019-05-29 22:06:25 Tai Carolina ENDARTERECTOMY, CAROTID 2019-05-29 21:33:00 Julio Day POC GLUCOSE 2019-05-29 19:17:00 Milton Day XR CHEST 2 VW 2019-05-27 16:28:50 Milton Day ECG 12-LEAD 2019-05-27 15:58:23 Milton Day HC COMPLETE BLD COUNT W/AUTO DIFF 2019-05-27 15:45:00 Milton Ashby COMPREHENSIVE METABOLIC PANEL 2019-05-27 15:45:00 Milton Messina PROTHROMBIN TIME WITH INR 2019-05-27 15:45:00 Richard Day PARTIAL THROMBOPLASTIN TIME (PTT) 2019-05-27 15:45:00 Milton Ashby TYPE AND SCREEN 2019-05-27 15:45:00 Milton Day HEMOGLOBIN A1C 2019-05-27 15:45:00 Don Miranda ESTIMATED GFR 2019-05-27 15:45:00 Milton Day Plan of Care Planned Activity Planned Date Details Comments Source Future Scheduled Test 2020-02-14 00:00:00 INFLUENZA VACCINE [code = INFLUENZA VACCINE] [facility] Future Scheduled Test 2011 00:00:00 65+ PNEUMOCOCCAL V ACCINE (1 of 2 - PCV13) [code = 65+ PNEUMOCOCCAL VACCINE (1 of 2 - PCV13)] [facility] Future Scheduled Test 1996 00:00:00 BREAST CANCER SCRE ENING [code = BREAST CANCER SCREENING] [facility] Future Scheduled Test 1996 00:00:00 COLONOSCOPY SCREEN ING [code = COLONOSCOPY SCREENING] [facility] Future Scheduled Test 1996 00:00:00 SHINGLES VACCINES (#1) [code = SHINGLES VACCINES (#1)] [facility] Future Scheduled Test 1956 00:00:00 DIABETIC FOOT EXAM [code = DIABETIC FOOT EXAM] [facility] Scheduled Test 1956 00:00:00 URINE MICROALBUMIN [code = URINE MICROALBUMIN] [facility] Scheduled Test 1946 00:00:00 DIABETIC RETINAL E YE EXAM [code = DIABETIC RETINAL EYE EXAM] [facility] Scheduled Test Serum or plasma cr eatine kinase measurement (enzymatic activity/volume) [code = 2157-6] [facility] Future Scheduled Test Serum or plasma cr eatine kinase MB measurement (mass/volume) [code = 87875-4] [facility] Future Scheduled Test Serum or plasma tr oponin i.cardiac measurement by detection limit <= 0.01 NG/ml (mass/volume) [code = 19142-6] [facility] Goal Patient referral [code = 4297876 ] [facility] Goal Patient referral [code = 5497670 ] [facility] Goal Patient referral [code = 1985560 ] [facility] Goal Patient referral [code = 8830699 ] [facility] Instructions Chest Pain - Noncardiac [facility] Encounters Start Date/Time End Date/Time En[facility] ID Source 2019-11-21 00:31:00 2019-11-21 12:40:00 Discharged Inpatient (obs) [address] [facility] [id number] [facility] 2019-04-29 20:26:00 2019-05-01 13:52:00 Discharged Inpatient (obs) [address] [facility] [id number] [facility] 2018-11-02 21:51:00 2018-11-03 00:15:00 Departed Emergency Room 1 [facility]AD [facility] [id number] [facility] 2018-10-04 12:07:00 2018-10-06 13:02:00 Discharged Inpatient 1 VALDO MANNING [facility] [id number] [facility] 2018-05-25 07:11:00 2018-05-25 12:45:00 Departed Emergency Room 1 JORGE LUIS SCHWARTZ [facility] [id number] [facility] 2017-12-23 04:43:00 2017-12-25 12:17:00 Discharged Inpatient (obs) 1 AMARIS GAN [facility] [id number] [facility] Results Test Description Test Time Test Comments Results Result Comments Source Serum or plasma triglyceride measurement (mass/volume) 11-20 07:30:00 Test Item Triglycerides Level (test code = 2571-8) 81 [facility] (mass/volume)2019-11-21 07:30:00* Test Item Value Reference Range Interpretation Comments Cholesterol Level (test code = 2093-3) 128 [facility] cholesterol in LDL measurement (mass/volume)2019-11-21 07:30:00* Test Item Value Reference Range Interpretation Comments LDL Cholesterol (test code = 2089-1) 55 [facility] cholesterol in HDL measurement (mass/volume)2019-11-21 07:30:00* Test Item Value Reference Range Interpretation Comments HDL Cholesterol (test code = 2085-9) 57 [facility] plasma total cholesterol/cholesterol in HDL mass [id number] 07:30:00* Test Item Value Reference Range Interpretation Comments Cholesterol/HDL Ratio (test code = 9830-1) 2.2 [facility] creatine kinase measurement (enzymatic activity/volume)2019-11-21 07:30:00* Test Item Value Reference Range Interpretation Comments Creatine Kinase (test code = 2157-6) 103 [facility] creatine kinase MB measurement (mass/volume)2019-11-21 07:30:00* Test Item Value Reference Range Interpretation Comments Creatine Kinase MB (test code = 68043-5) 1.50 [facility] measurement by highly sensitive enzyme [id number] 07:30:00* Test Item Value Reference Range Interpretation Comments Troponin I (test code = 05417-5) 0.013 [facility] thyrotropin measurement by detection limit <= 0.005 miu/l (units/volume)2019-11-21 07:30:00* Test Item Value Reference Range Interpretation Comments Thyroid Stimulating Hormone (TSH) (test code = 67210-4) 3.690 [facility] blood glucose measurement by glucometer (mass/volume)2019-11-21 07:28:00* Test Item Value Reference Range Interpretation Comments Bedside Glucose (test code = 11896-7) 236 [facility] Antonio[facility] (PORTABLE)2019-11-20 23:56:00 [facility] [address] [address] Patient Name: FANG QUINTANILLA MR #: [id number] : 1945 Age/Sex: 74/F Req #: [id number] Adm Physician: Ordered by: MARITZA GAGNON MD Report #: [id number] Location: ER Room/Bed: Procedure: [id number] DX/CHEST S YONIS (PORTABLE) Exam Date: 11/20/19 Exam Time: 2320 REPORT STATUS: Signed EXAMINATI ON: CHEST SINGLE (PORTABLE) INDICATION: Chest pain COMPARISO N: Chest x-ray 04/19/2019 FINDINGS: TUBES and LINES: None. LUNGS: Normal lung volumes. Lungs are clear. Prominent central pulmonary vasculature. PLEURA: No pleural effusion or pneumothorax. HEART AND MEDIASTINUM: Cardiac size is mildly enlarged. BONES AND SOFT TISSUES: No acute osseous lesion. Soft tissues are unremarkable. UPPER ABDOMEN: No free air under the diaphragm. IMPRESSION: Mild cardiomegaly a nd pulmonary vascular congestion. Signed by: Adolfo Martinez DO on 11/20/2019 11:58 PM Dictated By: ADOLFO MARTINEZ DO 57 Transcribed By: BRITTNEY on 11/20/19 8 COPY TO: MARITZA GAGNON MD Blood leukocytes automated count (number/volume)2019-11-20 22:41:00* Test Item Value Reference Range Interpretation Comments White Blood Count (test code = 6690-2) 6.23 [facility] erythrocytes automated count (number/volume)2019-11-20 22:41:00* Test Item Value Reference Range Interpretation Comments Red Blood Count (test code = 789-8) 4.29 [facility] hemoglobin measurement (moles/volume)2019-11-20 22:41:00* Test Item Value Reference Range Interpretation Comments Hemoglobin (test code = 15198-6) 11.3 [facility] Antonio[facility] blood hematocrit (volume fraction)2019-11-20 22:41:00* Test Item Value Reference Range Interpretation Comments Hematocrit (test code = 4544-3) 35.7 [facility] Antonio[facility] erythrocyte mean corpuscular [id number] 22:41:00* Test Item Value Reference Range Interpretation Comments Mean Corpuscular Volume (test code = 787-2) 83.2 [facility] Antonio[facility] erythrocyte mean corpuscular hemoglobin (mass per erythrocyte)2019-11-20 22:41:00* Test Item Value Reference Range Interpretation Comments Mean Corpuscular Hemoglobin (test code = 785-6) 26.3 [facility] Antonio[facility] erythrocyte mean corpuscular hemoglobin concentration measurement (mass/volume)2019-11-20 22:41:00* Test Item Value Reference Range Interpretation Comments Mean Corpuscular Hemoglobin Concent (test code = 786-4) 31.7 [facility] AntonioRDW [id number]-[id number] 22:41:00* Test Item Value Reference Range Interpretation Comments Red Cell Distribution Width (test code = 62363-5) 14.8 [facility] Antonio[facility] blood platelet count (count/volume)2019-11-20 22:41:00* Test Item Value Reference Range Interpretation Comments Platelet Count (test code = 777-3) 233 [facility] Antonio[facility] blood segmented neutrophil count as percentage of total [id number] 22:41:00* Test Item Value Reference Range Interpretation Comments Neutrophils (%) (Auto) (test code = 73361-9) 58.4 [facility] Antonio[facility] blood lymphocyte count as percentage ot total [id number] 22:41:00* Test Item Value Reference Range Interpretation Comments Lymphocytes (%) (Auto) (test code = 736-9) 29.4 [facility] Antonio[facility] monocyte count as percentage of total ytpnxifjin5672-83-07 22:41:00* Test Item Value Reference Range Interpretation Comments Monocytes (%) (Auto) (test code = 5905-5) 8.5 [facility] Antonio[facility] blood eosinophil count as percentage of total zjrkxxecyl1309-76-38 22:41:00* Test Item Value Reference Range Interpretation Comments Eosinophils (%) (Auto) (test code = 713-8) 2.2 [facility] AntonioAutunc health pardeeed blood basophil count as percentage of total lqmlbkazof7319-43-67 22:41:00* Test Item Value Reference Range Interpretation Comments Basophils (%) (Auto) (test code = 706-2) 1.0 [facility] AntonioFluoroscopic procedure less than one hour tqtjelrm1304-46-79 22:41:00* Test Item Value Reference Range Interpretation Comments IM GRANULOCYTES % (test code = IM GRANULOCYTES %) 0.5 [facility] AntonioAutomated blood neutrophil count 2019-11-20 22:41:00* Test Item Value Reference Range Interpretation Comments Neutrophils # (Auto) (test code = 751-8) 3.6 [facility] AntonioBlood lymphocytes count (number/volume) 2019-11-20 22:41:00* Test Item Value Reference Range Interpretation Comments Lymphocytes # (Auto) (test code = 51208-4) 1.8 [facility] AntonioBlood monocytes automated count (number/volume)2019-11-20 22:41:00* Test Item Value Reference Range Interpretation Comments Monocytes # (Auto) (test code = 742-7) 0.5 [facility] AntonioAutomated blood eosinophil count 2019-11-20 22:41:00* Test Item Value Reference Range Interpretation Comments Eosinophils # (Auto) (test code = 711-2) 0.1 [facility] AntonioAutomated blood basophil count (count/volume)2019-11-20 22:41:00* Test Item Value Reference Range Interpretation Comments Basophils # (Auto) (test code = 704-7) 0.1 [facility] AntonioFluoroscopic procedure less than one hour nkmlakmx6040-00-02 22:41:00* Test Item Value Reference Range Interpretation Comments Absolute Immature Granulocyte (auto (patrice t code = Absolute Immature Granulocyte (auto) 0.03 [facility] AntonioProthrombin time (PT) in platelet poor plasma by coagulation sgqsv3317-08-29 22:41:00* Test Item Value Reference Range Interpretation Comments Prothrombin Time (test code = 5902-2) 12.3 [facility] AntonioINR in Platelet poor plasma by Coagulation xesml2775-07-67 22:41:00* Test Item Value Reference Range Interpretation Comments Prothromb Time International Ratio (test code = 6301-6) 0.87 [facility] AntonioActivated partial thromboplastin time (aPTT) in platelet poor plasma by coagulation jhcnc6693-69-63 22:41:00* Test Item Value Reference Range Interpretation Comments Activated Partial Thromboplast Time (test code = 95359-4) 30.3 [facility] plasma sodium measurement (moles/volume)2019-11-20 22:41:00* Test Item Value Reference Range Interpretation Comments Sodium Level (test code = 2951-2) 139 [facility]ererum or plasma potassium measurement (moles/volume)2019-11-20 22:41:00* Test Item Value Reference Range Interpretation Comments Potassium Level (test code = 2823-3) 4.1 [facility]ererum or plasma chloride measurement (moles/volume)2019-11-20 22:41:00* Test Item Value Reference Range Interpretation Comments Chloride Level (test code = 2075-0) 99 [facility]ererum or plasma carbon dioxide, total measurement (moles/volume)2019-11-20 22:41:00* Test Item Value Reference Range Interpretation Comments Carbon Dioxide Level (test code = 2028-9) 26 [facility] Centererum or plasma anion qpi5927-11-00 22:41:00* Test Item Value Reference Range Interpretation Comments Anion Gap (test code = 74036-5) 18.1 [facility]ererum or plasma urea nitrogen measurement (mass/volume)2019-11-20 22:41:00* Test Item Value Reference Range Interpretation Comments Blood Urea Nitrogen (test code = 3094-0) 17 [facility]ererum or plasma creatinine measurement (mass/volume)2019-11-20 22:41:00* Test Item Value Reference Range Interpretation Comments Creatinine (test code = 2160-0) 1.03 [facility]ererum or plasma urea nitrogen/creatinine mass racyv7509-50-07 22:41:00* Test Item Value Reference Range Interpretation Comments BUN/Creatinine Ratio (test code = 3097-3) 17 [facility] AntonioEstimated glomerular filtration rate (GFR) qinouybyjnjsm3017-71-87 22:41:00* Test Item Value Reference Range Interpretation Comments Estimat Glomerular Filtration Rate (test code = 482638032) 53 [facility] AntonioGlucose ckybyvptqll4626-14-01 22:41:00* Test Item Value Reference Range Interpretation Comments Glucose Level (test code = ZFS5407) 217 [facility]ererum or plasma calcium measurement (mass/volume)2019-11-20 22:41:00* Test Item Value Reference Range Interpretation Comments Calcium Level (test code = 44144-5) 9.4 [facility]ererum or plasma total bilirubin measurement (mass/volume)2019-11-20 22:41:00* Test Item Value Reference Range Interpretation Comments Total Bilirubin (test code = 1975-2) 0.5 [facility] AntonioFluoroscopic procedure less than one hour omyabobj7678-83-88 22:41:00* Test Item Value Reference Range Interpretation Comments Aspartate Amino Transf (AST/SGOT) (test code = Aspartate Amino Transf (AST/SGOT)) 51 [facility] Centererum or plasma alanine aminotransferase measurement (enzymatic activity/volume)2019-11-20 22:41:00* Test Item Value Reference Range Interpretation Comments Alanine Aminotransferase (ALT/SGPT) (test code = 1742-6) 50 [facility]ererum or plasma protein measurement (mass/volume)2019-11-20 22:41:00* Test Item Value Reference Range Interpretation Comments Total Protein (test code = 2885-2) 7.4 [facility] Centererum or plasma albumin measurement (mass/volume)2019-11-20 22:41:00* Test Item Value Reference Range Interpretation Comments Albumin (test code = 1751-7) 3.9 [facility] AntonioPlasma globulin measurement (mass/volume) 2019-11-20 22:41:00* Test Item Value Reference Range Interpretation Comments Globulin (test code = 32836-9) 3.5 [facility]ererum or plasma albumin/globulin mass eogpz2536-48-63 22:41:00* Test Item Value Reference Range Interpretation Comments Albumin/Globulin Ratio (test code = 1759-0) 1.1 [facility] Centererum or plasma alkaline phosphatase measurement (enzymatic activity/volume)2019-11-20 22:41:00* Test Item Value Reference Range Interpretation Comments Alkaline Phosphatase (test code = 6768-6) 116 [facility] Rxj-vXpi5822-94-07 22:41:00* Test Item Value Reference Range Interpretation Comments B-Type Natriuretic Peptide (test code = 29454-5) 21.1 [facility] Centerurgical pathology eoxakqi9733-71-97 23:01:01* Test Item Value Reference Range Interpretation Comments Case number (test code = 3191080) [id number] Surgical pathology report (test code = 2255) See link below for PDF Lab Report Result status (test code = 1278223) This is Final Report for [id number] 5484-21 [facility] wfvzkpv2521-43-28 21:49:30* Test Item Value Reference Range Interpretation Comments POC glucose (test code = 79335-7) 175 mg/dL 65-99 H Meter ID: [id number]: Josué Whyte Lab Interpretation (test code = 17663-7) Abnormal [facility]Com[facility] dnosv3760-71-45 10:21:16* Test Item Value Reference Range Interpretation Comments Sodium (test code = 2951-2) 134 135- 148 mEq/L L Potassium (test code = 2823-3) 4.7 3.5- 5.0 mEq/L Chloride (test code = 2075-0) 100 98- 112 mEq/L CO2 (test code = 2027-9) 23 24- 31 mEq/L L Anion gap (test code = 89669-9) 11@ANIO 7- 15 mEq/L BUN (test code = 3094-0) 21 mg/dL 8-23 Creatinine (test code = 2160-0) 0.60 mg/dL 0.5-0.9 Glucose (test code = 2345-7) 314 mg/dL 65-99 H Calcium (test code = 06885-1) 8.8 mg/dL 8.8-10.2 Protein (test code = 2885-2) 7.2 g/dL 6.3-8.3 Blbctzo1210.6-7.0 g/dL1 keqo4144.4-7.6 g/dL7 months-1crjd103.1-7.3 g/dL1-2 hznoa254.6-7.5 g/dL>3 .0-8.0 g/yZ06-6896742.3-8.3 g/dL Albumin (test code = 1751-7) 4.2 g/dL 3.5-5 A/G ratio (test code = 1759-0) 1.4 0.7-3.8 Alkaline phosphatase (test code = 6768-6) 106 U/L 35-104 H AST (test code = 1920-8) 35 U/L 10-35 ALT (test code = 1742-6) 33 U/L 5-50 Total bilirubin (test code = 1974-) 0.7 mg/dL 0-1.2 Lab Interpretation (test code = 26669-2) Abnormal [place] [facility]Magnesium ludqq5786-91-29 10:21:15* Test Item Value Reference Range Interpretation Comments Magnesium (test code = 40272-4) 1.8 mg/dL 1.6-2.4 [place] MethodistPhosphorus hzbih0762-74-65 10:21:15* Test Item Value Reference Range Interpretation Comments Phosphorus (test code = 2777-1) 4.0 mg/dL 2.4-4.5 [place] MethodistEstimated ZAD7046-52-44 10:21:15* Test Item Value Reference Range Interpretation Comments Estimated GFR (test code = 5488) >=90 mL/min/1.73 m2 Catergory Units InterpretationG1 >=90 Normal or highG2 60-89 Mildly dlbttlbbbR1v 45-59 Mildly to moderately gqnrdcdxiE4z 30-44 Moderately to severely decreasedG4 15-29 Severely decreasedG5 <15 Kidney failureThe eGFR was calculated using the Chronic Kidney Disease Epidemiology Collaboration (CKD-EPI) equation. Interpretation is based on recommendations of the National Kidney Foundation-Kidney Disease Outcomes Quality Initiative (NKF-KDOQI) published in 2014. [place] MethodistIonized soslmbd1431-10-27 10:06:31* Test Item Value Reference Range Interpretation Comments pH (test code = 2753-2) 7.34 Ionized calcium (test code = 1994-0) 1.11 mmol/L 1.11-1.32 [place] MethodistCBC with platelet and hfpfxwdgepye2979-94-01 09:49:19* Test Item Value Reference Range Interpretation Comments WBC (test code = 48489-0) 7.88 4.50- 11.00 k/uL RBC (test code = 04709-1) 4.03 m/uL 4.2-5.5 L HGB (test code = 718-7) 11.1 g/dL 12-16 L HCT (test code = 4544-3) 34.6 % 37-47 L MCV (test code = 787-2) 85.9 fL 82-100 MCH (test code = 785-6) 27.5 pg 27-34 MCHC (test code = 786-4) 32.1 g/dL 31-37 RDW - SD (test code = 27919-0) 43.9 fL 37-55 MPV (test code = 71760-0) 11.0 fL 8.8-13.2 Platelet count (test code = 71577-5) 231 150- 400 k/uL Nucleated RBC (test code = 67195-8) 0.00 /100 WBC Neutrophils (test code = 53228-3) 88.5 % 39-69 H Lymphocytes (test code = 86099-0) 7.2 % 25-45 L Monocytes (test code = 48579-4) 3.6 % 0-10 Eosinophils (test code = 10403-6) 0.0 % 0-5 Basophils (test code = 62479-5) 0.3 % 0-1 Lab Interpretation (test code = 11013-8) Abnormal [facility]XR Chest 1 Vw Cwshevxh8618-76-96 02:41:50Hm Interface, Radiology Results - 05/29/2019 8:44 PM CSTEXAMINATION: XR CHEST 1 VW PORTABLECLINICAL HISTORY: ICU pt stable with no clinical status changesIMPRESSION:Aortic arch calcified. Heart is slightly enlarged. There are s cattered areas of subsegmental atelectasis. There is no segmental infiltrate or effusion. Regional skeleton is intact.HMH-[id number] MethodistArterial bnal5629-63-71 22:06:46Tai Bloom MD 05/29/2019 4:06 PMArterial linePerformed by: Tai Bloom MDAuthorized by: Tai Bloom MD Patient Location: ORStaff: Anesthesiologist: Tai Bloom MD Performed by: AnesthesiologistPre-procedure: patient identified, IV checked, site and side verified, risks and benefits discussed, procedure verified, surgical consent complete, patient position confirmed, monitors and equipment checked and pre-op evaluation complete MSBT: antiseptic used, all elements of maximal sterile barrier technique followed, hand hygiene performed, cap/gown used by other personnel and solutions labeled Indications: Indications: multiple ABGs and hemodynamic monitoring Anesthesia: Anesthesia: GeneralProcedure Details: Arterial Line placement: Placed post induction Line placement site: RadialLine placement side: Right Arterial line gauge: 20 GNumber of attempts: 1Ultrasound guidance used: No Post-procedure: Post-procedure: Sterile dressing applied Post procedure circulation, sensation, movement: Normal Patient tolerance: Patient tolerated the procedure well with no immediate complicationsP[place] MethodistAirmaury regional medical center 2019-05-29 22:06:25Tai Bloom MD 05/29/2019 4:06 PMAirwayPerformed by: Tai Bloom MDAuthorized by: Tai Bloom MD Location: ORUrgency: ElectiveDifficult Airway: No Anesthesiologist: Tai Bloom MDPerformed by: anesthesiologistPreoxygenated with 100% O2: Yes Mask Ventilation: Easy maskFinal Airway Type: Endotracheal airwayFinal Endotracheal Airway: ETTCuffed: Yes Technique Used: Direct laryngoscopyDevices/Methods Used in Placement: Intubating styletInsertion Site: OralBlade Type: Mil lerLaryngoscope Blade/Videolaryngoscope Blade Size: 2ETT Size (mm): 7.5Cuff at minimum occlusion pressure: Yes Placement Verified by: CO2 detection and direct visualization Laryngoscopic view: Grade I - full view of glottisRapid Sequence Induction (RSI): No Modified RSI: No Number of Attempts at Approach: 1[facility] MethodistType and xyvtnx4035-69-04 18:23:00* Test Item Value Reference Range Interpretation Comments ABO grouping (test code = 883-9) O Rh type (test code = 24723-5) POS Antibody screen (test code = 890-4) NEG [place] MethodistECG 12 rsvh9504-67-62 17:55:23* Test Item Value Reference Range Interpretation Comments Ventricular rate (test code = 253) 63 Atrial rate (test code = 255) 63 OK interval (test code = 266) 138 QRSD interval (test code = 260) 94 QT interval (test code = 264) 452 QTC interval (test code = 265) 462 P axis 1 (test code = 267) -15 QRS axis 1 (test code = 268) -29 T wave axis (test code = 270) 44 EKG impression (test code = 273) Normal sinus rhythm-I ncomplete right bundle branch block-Borderline ECG-In automated comparison with ECG of 25-NOV-2018 11:12,-No significant change was found- [place] MethodistProthrombin time with DAX2704-20-12 17:38:25* Test Item Value Reference Range Interpretation Comments Prothrombin time (test code = 5902-2) 13.6 11.5- 14.5 sec INR (test code = 56011-3) 1.1 Th e International Normalized Ratio (INR) is a therapeutic monitoring tool for patients who are stable on oral anticoagulant therapy. An INR of 2.0-3.0 is suggested for deep vein thrombosis/pulmonary embolism. [place] MethodistPartial thromboplastin time, qcnhtwdxf9622-81-27 17:38:25* Test Item Value Reference Range Interpretation Comments PTT (test code = 82336-1) 30.6 23.0- 36.0 sec PTT therapeutic range for unfractionated heparin is61.0-112.0 seconds which corresponds to Anti-Xa0.3-0.7 U/ml. [place] MethodistHemoglobin Y6i1531-00-62 17:30:55* Test Item Value Reference Range Interpretation Comments Hemoglobin A1C (test code = 80328-6) 9.1 % 4-5.6 H HbA1c cutoffs for diagnosing diabetes:4.0% - 5.6% = normal5.7% - 6.4% = increased risk for diabetes (prediabetes)9>=6.5% = ozkkyvjs4Wrghi for glycemic control (ADA 2016)< 7.0% Target for non adults with diabetes. More or less stringent targets may be appropriate for individual patients. <7.5% Target for Children and adolescents with type 1 diabetes. Lab Interpretation (test code = 90719-3) Abnormal [place] MethodistXR Chest 2 Jb5995-45-68 16:33:56Hm Interface, Radiology Results - 05/27/2019 10:37 AM CSTEXAMINATION: XR CHEST 2 VWCLINICAL HISTORY: Z01.818 Encounter for other preprocedural examination, preopCOMPARISON: To previous examination from 11/27/2018IMPRESSION:Cardiomediastinal silhouette is prominent. The lungs are clear.[facility] – MCALESTERL-[id number] MethodistCHEST SINGLE (PORTABLE)2019-04-29 19:02:00 [facility] [address] [place] [address] Patient Name: FANG QUINTANILLA MR #: [id number] : 1945 Age/Sex: 74/F Req #: [id number] Adm Physician: Ordered by: JORGE LUIS SCHWARTZ MD Report #: [id number] Location: ER Room/Bed: Procedure: [id number] DX/DESHAUN ST SINGLE (PORTABLE) Exam Date: 04/29/19 Exam Time: 1840 REPORT STATUS: Signed EXAMI NATION: CHEST SINGLE (PORTABLE) COMPARISON: Chest x-ray 11/02/2018 INDICATION: Dizziness/weakness, vomiting CHEST PAIN [id number] 1840 Y DISCUSSION: Frontal view of the chest obtained at 1830 hours. H EART AND MEDIASTINUM: Stable mild cardiomegaly. LINES: None. LUNGS : The lungs are well inflated and clear. No pneumonia or pulmonary edema. PLEURA: No pleural effusion or pneumothorax. BONES AND SOFT TISSUES: Degen erative changes of the spine. No focal osseous lesion. The soft tissues are no rmal. IMPRESSION: No acute cardiopulmonary disease. Stable mild card iomegaly. Signed by: Dr. Manoj Enamorado MD on 04/29/2019 7:03 PM Dictated By: MANOJ ENAMORADO MD 02 Transcribed By: BRITTNEY on 04/29/191902 COPY TO: JORGE LUIS DIAZ MD Urine color syzuitolvakvc9195-69-82 18:24:00* Test Item Value Reference Range Interpretation Comments Urine Color (test code = 5778-6) YELLOW [facility] xebfxwh7922-39-33 18:24:00* Test Item Value Reference Range Interpretation Comments Urine Clarity (test code = 33914-0) SL CLOUDY [facility] Centerpecific gravity of Urine by Test strip 2019-04-29 18:24:00* Test Item Value Reference Range Interpretation Comments Urine Specific [place] (test code = 5811-5) 1.020 [facility] Antonio[facility] pH measurement by automated test baidl6201-10-13 18:24:00* Test Item Value Reference Range Interpretation Comments Urine pH (test code = 18290-7) 6 [facility] AntonioU[facility] leukocyte esterase detection by pbnrhsrh2133-38-35 18:24:00* Test Item Value Reference Range Interpretation Comments Urine Leukocyte Esterase (test code = 5799-2) TRACE [facility] AntonioU[facility] nitrite ryaqrokzt2524-21-25 18:24:00* Test Item Value Reference Range Interpretation Comments Urine Nitrite (test code = 59359-1) POSITIVE [facility] AntonioU[facility] protein measurement by test strip (mass/volume)2019-04-29 18:24:00* Test Item Value Reference Range Interpretation Comments Urine Protein (test code = 5804-0) NEGATIVE [facility] Antonio[facility] glucose pjxfpnljh3794-39-34 18:24:00* Test Item Value Reference Range Interpretation Comments Urine Glucose (UA) (test code = 2349-9) NEGATIVE [facility] AntonioU[facility] ketones detection by automated test djsax8964-26-95 18:24:00* Test Item Value Reference Range Interpretation Comments Urine Ketones (test code = 89177-0) NEGATIVE [facility] AntonioUrine urobilinogen measurement by test strip (mass/volume)2019-04-29 18:24:00* Test Item Value Reference Range Interpretation Comments Urine Urobilinogen (test code = 36316-9) 0.2 [facility] Antonio[facility] total bilirubin measurement (mass/volume)2019-04-29 18:24:00* Test Item Value Reference Range Interpretation Comments Urine Bilirubin (test code = 1978-6) NEGATIVE [facility] Antonio[facility] erythrocytes aopfoxmws3559-29-75 18:24:00* Test Item Value Reference Range Interpretation Comments Urine Blood (test code = 27170-4) NEGATIVE [facility] AntonioAutomated urine sediment leukocyte count by microscopy (number/high power field)2019-04-29 18:24:00* Test Item Value Reference Range Interpretation Comments Urine WBC (test code = 5821-4) 6-10 [facility] AntonioErythrocytes detection in urine sediment by light fluggkefzm9674-70-72 18:24:00* Test Item Value Reference Range Interpretation Comments Urine RBC (test code = 14868-0) NONE [facility] AntonioBacteria detection in urine sediment by light oozqzvoxkb3085-50-71 18:24:00* Test Item Value Reference Range Interpretation Comments Urine Bacteria (test code = 72382-8) MANY [facility] AntonioEpithelial cells detection in urine sediment by light kbgwaktdkl9491-17-56 18:24:00* Test Item Value Reference Range Interpretation Comments Urine Epithelial Cells (test code = 39889-6) NONE [facility] AntonioBacterial urine efefape2041-84-60 18:24:00* Test Item Value Reference Range Interpretation Comments Urine Culture (test code = 630-4) ESCHERICHIA COLI [facility] ANGIO STWR3117-59-80 13:52:00 Name: FANG QUINTANILLA [facility] : 1945 Age/S: 73 / F [address] Unit #: [id number] Loc: [place] [address] Phys: Milton Messina MD Acct: [id number] Di s Date: Status: REG CLI PHONE #: Exam Date: 11/04/2018 1042 FAX #: Reason: SEVERE CAROTID STENOSIS. EXAMS: CPT CODE: [id number] CT ANGIO NECK [address] ANGIOGRAM WITH IV CONTRAST AND MULTIPLANAR REFORMATS WITH 3-D RECONSTRUCTIONS 11/04/2018. MEDICAL HISTORY: Severe carotid stenosis. COMPARISON S TUDIES: No recent relevant priors. Reference is made to the head CT from 03/14/2017. ADMINISTERED CONTRAST: 100 mL of Isovue 300 intravenously. DLP: 383.6 mGy-cm FINDINGS: Contiguous 2 mm axial images of the extracranial carotid and vertebral circulation were obtained from the skul l base to the thoracic inlet with IV contrast using the CT angiogram brian col. The acquired data was used to create multiplanar MIP and 3-D volume rendering reconstructions as per CT angiogram protocol. Additional ve ssel probe analysis of the carotid circulation was performed with use of t Workstation. All stenosis percentages reference the distal internal car otid artery as the denominator for stenosis measurement according to the N ASCET criteria. CT imaging performed at this location utilizes radiation d ose optimization techniques which include one or more of the following: -Automated exposure control -Adjustment of the mA and/or kV according to patient size -Use of iterative reconstruction technique RIGHT SIDE: Normal caliber right common carotid artery. Heavy right carot id bulb calcification with greater that 70% luminal diameter stenosis of t he right ICA takeoff. Preserved distal runoff into a patent mid and dista l ICA without distal stenosis or arterial dissection. LEFT S BILL: Normal caliber left common carotid artery. Heavy left carotid bulb c alcification with roughly 60% stenosis of the left ICA takeoff. Preserved distal runoff into a normal caliber mid and distal ICA without distal cassius w-limiting stenosis or arterial dissection. VERTEBROBASILAR SYSTE M: Patent vertebrobasilar system with dominant left vertebral artery. No flow-limiting stenosis or arterial dissection. Patent vertebrobasilar leela ction with normal caliber proximal and mid basilar artery. The basilar ti p is not included in the aryak-bp-vkax. OTHER FINDINGS: No a bnormal intracranial enhancement along the visualized segments. Severe de generative disc disease is seen at C5-C6 with uncovertebral joint hypertro phy and uncovertebral PAGE 1 Signed Report (CONTINUED) Name: FANG QUINTANILLA [facility] : 1945 Age/S: 73 / F [address] [place], [place] [address] Unit #: [id number] Loc: [place] [address] Phys: Milton Day MD Acct: [id number] Dis Date: Status: REG CLI PHONE #: [phone] Exam Date: 11/04/2018 1042 FAX #: [phone] Reason: SEVERE CAROTID STENOSIS. EXAMS: CPT CODE: [id number] ANGIO NECK 51596 < Continued> osteophytes mildly indenting the thecal sac anteriorly. Severe atlantodental osteoarthritis. No cervical adenopathy, mass or fluid collection. Approximately 15 mm hypodense left thyroid nodule and indeterminate 6 mm left thyroid calcification. Clear lung apices. IMPRESSION: 1. Severe bilateral carotid bulb atherosclerosis with flow-limiting (>70%) stenosis of the right ICA takeoff and roughly 60% stenosis of the left ICA takeoff. No mid/distal carotid stenosis or arterial dissection. 2. Patent vertebrobasilar circulation with dominant left vertebral artery. No flow-limiting stenosis or arterial dissection. 3. Severe aortic arch calcification without aortic aneurysm or dissection. 4. Severe cervical spondylosis. 5. Incidental hypodense left thyroid nodule. See recommendations below. 6. No cervical adenopathy or masses. 7. Clear lungs along the visualized segments. Findings were conveyed to Dr. Day at 1351 hours. FOR INTERNAL CODING PURPOSES ONLY RESULT CODE: CVR ____ The [employer] (ACR) consensus guidelines for incidental thyroid nodules detected on CT or MRI recommended: Age < 35 years < 1 cm: No further evaluation. >= 1 cm: Evaluate with thyroid ultrasound. Age >= 35 years < 1.5 cm: No further evaluation. >= 1.5 cm: Evaluate with thyroid ultrasound. SL: ER- PAGE 2 Signed Report (CONTINUED) Name: FANG QUINTANILLA [facility] : 1945 Age/S: 73 / F [address] [place] [address] [address] Unit #: [id number] Loc: [place] [address] Phys: Milton Day MD Acct: [id number] Dis Date: Status: REG CLI PHONE #: [phone] Exam Date: 11/04/2018 1042 FAX #: [phone] Reason: SEVERE CAROTID STENOSIS. EXAMS: CPT CODE: [id number] CT ANGIO NECK 16620 <Continued> at 1352 Reported and signed by: Sav Lemus M.D. CC: Milton Day MD; Kaur Sutherland MD Technologist:Piter Haq RT(R)(CT) CTDI: DLP: Trnscb Date/Time: 11/04/2018 (2962) t.[email or web address] Orig Print D/T: S: 11/04/2018 (0727) CTDI: DLP: PAGE 3 Signed Report CREATININE W ESTIMATED [id number] 10:06:00* Test Item Value Reference Range Interpretation Comments BEDSIDE CREATININE (test code = CREATBED) 0.9 MG/DL 0.6-1.3 N GLOMERULAR FILTRATION RATE POC (test code = GFRBED) 65 ML/MIN ENTER BEDSIDE CREATININE RESULT: 0.90Serial Number: [id number] Name of User Perfo rming Test: NeWinstonVANDANAKOMALKCKIRK 2 [id number] 23:08:00 [place] [address] Patient Name: FANG QUINTANILLA MR #: [id number] : 1945 Age/Sex: 73/F Req #: [id number] Adm Physician: Ordered by: BUBBA WEBER MD Report #: [id number] Location: ER Room/Bed: Procedure: [id number] DX/C HEST 2 VIEWS Exam Date: 11/02/18 Exam Time: 2234 REPORT STATUS: Signed EXAMINATION: CHEST 2 VIEWS INDICATION: chest pain with inspiration [id number] COMPARISON: Chest x-ray 10/01/2018 FINDINGS: PA and lateral views TUBES and LINES: None. LUNGS: Lungs are well inflated. There is no evidence of pneumonia or pulmonary edema. PLEURA: No pleu ral effusion or pneumothorax. HEART AND MEDIASTINUM: The heart is top norm al in size to mildly enlarged. Aortic tortuosity and mural calcifications are stable. BONES AND SOFT TISSUES: No focal osseous lesions. Soft tissues a re unremarkable. UPPER ABDOMEN: No free air under the diaphragm. There ar e clips in the upper abdomen. IMPRESSION: No acute cardiopulmonary pro cess. Mild cardiomegaly. Signed by: Dr. Manoj Enamorado MD on 11/03/19 11:10 PM Dictated By: MANOJ ENAMORADO MD 09 Transcribed By: BRITTNEY on 11/02/182309 COPY TO: BUBBA WEBER MD CHEST SINGLE (PORTABLE)2018-10-01 16:31:00 [place] [address] Patient Name: FANG QUINTANILLA MR #: [id number] : 1945 Age/Sex: 73/F Req #: [id number] Adm Physician: Ordered by: VALDO MANNING MD Report #: [id number] Location: ER Room/Bed: Procedure: [id number] DX/C HEST SINGLE (PORTABLE) Exam Date: 10/01/18 Exam Time : 1605 REPORT STATUS: Signed Exa mination: Single AP view of the chest. COMPARISON: 05/25/2018 INDICATI ON: Chest pain DISCUSSION: Chronic bibasilar airspace opacities u nchanged. No new consolidation, pleural effusion, or pneumothorax. Stable card iomediastinal contour with tortuosity and atherosclerotic calcification of the thoracic aorta. No overt pulmonary edema. No acute osseous abnormality. IMPRESSION: No acute cardiopulmonary abnormality. Stable appearance of the chest relative to 05/25/2018. Signed by: Dr. Claudia Collins M.D. on 4:32 PM Dictated By: CLAUDIA COLLINS MD 31 Transcribed By: BRITTNEY on 10/01/181631 COPY TO: VALDO MANNING MD CHEST 2 [id number] 08:27:00 [place] [address] Patient Name: FANG QUINTANILLA MR #: [id number] : 1945 Age/Sex: 73/F Req #: [id number] Adm Physician: Ordered by: JORGE LUIS SCHWARTZ MD Report #: [id number] Location: ER Room/Bed: Procedure: [id number] DX/DESHAUN ST 2 VIEWS Exam Date: Exam Time: REPORT STATUS: Signed EXAM: XR CHEST 2 VIEWS DATE: 05/25/2018 7:31 AM INDICATION: Fever COMPARISON: CT chest 2017, radiograph 12/23/2017, no report available. FINDINGS: Lines and T ubes: None Heart and Mediastinum: No acute cardiomediastinal findings. Aort ic vascular calcifications. Lungs and Pleura: Basilar atelectasis/scarrin g, stable. Bones and Soft Tissues: No acute findings. IMPRESSION: 1 . Overall stable exam. Signed by: Dr. Gin Tran MD on 05/25/2018 8:29 AM Dictated By: GIN TRAN MD 8 Transcribed By: BRITTNEY on 05/25/18828 COPY TO: JORGE LUIS SCHWARTZ MD Stress Test - Treadmill [id number] 09:59:00 [place] [address] Patient Name : FANG QUINTANILLA MR #: [id number] : 0 1945 Age/Sex: 72/F Adm Physici an : AMARIS GAN MD Admit Date : 12/23/17 Location : MED/SURG Room/Bed : [facility] REPORT: Cardiology Report LEXISCAN NUCLEAR STRESS TEST CLINICAL HISTORY AND INDICATIONS: A 72-year-o ld woman who presented with chest pains, unable to walk adequa tely on the treadmill. Following Lexiscan, perfusion images showed diminish ed counts involving the inferior wall. The rest images showed the same. CONCLUSIONS: 1. No definite ischemic changes based on perfusion imaging. 2. The ejection fraction with Lexiscan is 72%. 3. Inferior tissue attenuation no jonathan. 4. No significant ST-segment depression with Lexiscan. 5. Normal blood pressure response. 6. No significant arrhythmias with Lexiscan. Job#: [id number] cc: MACIEL CHENG MD Signature Date Dictated By: AMARIS GAN MD Transcribed By: EDS on 12/25/17 <Electronically signed by AMARIS GAN MD>< <Signature on File>>12/31/17900 COPY TO: CT CHEST [id number] 16:16:00 [place] [address] Patient Name: FANG QUINTANILLA MR #: [id number] : 10/1944 Age/Sex: 72/F Req #: [id number] Adm Physician: AMARIS HERNADEZ MD Ordered by: AMARIS GAN MD Report #: [id number] Location: ED/SURG Room/Bed: [facility] Procedure: [id number] CT/CT CH EST W Exam Date: 12/23/17 Exam Time: 1557 REPO RT STATUS: Signed EXAM: CT Chest WITH contrast 12/23/2017 3:01 PM INDICATION : COMPARISON: Same day x-ray. TECHNIQUE: Chest was scann ed utilizing a multidetector helical scanner from the lung apex through the le geraldine of the adrenal glands without administration of IV contrast. Coronal and s agittal reformations were obtained. PE protocol was performed. IV CONTRAS T: 100 mL of Isovue-370 COMPLICATIONS: None RADIATION DOSE: To marcelo DLP: 526 mGy*cm Estimated effective dose: (DLP x 0.014 x size factor) mSv CTDIvol has been reviewed. It is below the limits set by the Radiati on Protocol Committee (RPC). FINDINGS: LINES/ TUBES: None. LUNG S AND AIRWAYS: Suboptimal opacification of pulmonary arteries. Within this co ntext, there is no definite pulmonary embolism to the segmental level. Airway s are normal. 3 mm right upper lobe nodule (series 3, image 42). 3 mm left upp er lobe nodules (series 3 images 27 and 24). PLEURA: The pleural spaces are clear. HEART AND MEDIASTINUM: Left thyroid lobe calcification. No mediasti nal, hilar or axillary lymphadenopathy. The heart is normal in size.. There i s no pericardial effusion. There are mild atherosclerotic calcifications in t he aorta and coronary arteries. UPPER ABDOMEN: Cholecystectomy. 2.7 cm ri ght adrenal nodule, likely an adenoma. BONES: The visualized bony thorax is within normal limits. SOFT TISSUES: Unremarkable. IMPRESSION: Subo ptimal opacification of pulmonary arteries. Within this context, there is no d efinite pulmonary embolism to the segmental level. No lung consolidation. No nspecific subcentimeter lung nodules. Without risk factors, no follow-up is ne cessary. With risk factors, follow-up with low-dose chest CT in one year is re commended. Signed by: Dr. Luis Fernando Ortiz MD on 12/23/2017 4:24 PM Dic tated By: LUIS FERNANDO ORTIZ MD 23 COPY TO: AMARIS GAN MD CHEST SINGLE (PORTABLE)2017-12-23 04:39:00 [place] [address] Patient Name: FANG QUINTANILLA MR #: [id number] : 1945 Age/Sex: 72/F Req #: [id number] Adm Physician: Ordered by: JORGE LUIS SCHAWRTZ MD Report #: [id number] Location: ER Room/Bed: Procedure: [id number] DX/CHEST SINGLE (PORTABLE) Exam Date: 12/23/17 Exam Time: 0308 REPORT STATUS: S igned EXAMINATION: CHEST SINGLE (PORTABLE) INDICATION: Ch est pain. COMPARISON: 05/12/2016 FINDINGS: TUBES and LINES: None. LUNGS: Lungs are not well inflated. Lungs are clear. There is mil d prominence of the central pulmonary vasculature, consistent with pulmonary venous congestion. PLEURA: No pleural effusion or pneumothorax. HEART AND MEDIASTINUM: Cardiac size is mildly enlarged. BONES AND SOFT TIS SUES: No acute osseous lesion. Soft tissues are unremarkable. UPPER ABD OMEN: No free air under the diaphragm. IMPRESSION: No acute thoracic abnormality. Signed by: Dr. Ean Bush M.D. on 12/23/2017 4:39 AM Dictated By: EAN JEAN-BAPTISTE MD 8 Transcribed By: BRITTNEY on 12/23/17438 COPY TO: JORGE LUIS SCHWARTZ MD
--- NOTE | 2019-12-01 08:20 | Emergency Department Note ---
History of Present Illnes History of Present Illness Chief Complaint: Hypertension History of Present Illness This is a 74 year old female to the ER for one day h/o of left UE n/t with pain that starts in the neck to the L arm which resolved prior to arrival . Historian: Patient Hospice/Home Health Aide Required: No Location: neck and L UE Radiation: neck, extremity Severity: mild Onset quality: gradual Duration (how long): day(s) Timing of current episode: intermittent Progression: improving Chronicity: new Context: recent immobilization, other (recent cardiac work up) Relieving factors: immobilization Exacerbating factors: movement Associated symptoms: denies other symptoms Treatments prior to arrival: none Past Medical/Family History Physician Review I have reviewed the patient's past medical and family history. Any updates have been documented here. Past Medical History Recent Fever: No Clinical Suspicion of Infectio: No Past Medical History: Hypertension, Diabetes, Hypothyroidism, CAD, Kidney Stones, Anxiety, Hyperlipedemia Other Medical History: DIABETIC NEUROPATHY Past Surgical History: Cholecysctectomy, Appendectomy, Hysterectomy Other Surgery: URINARY SURGERY A CHILD. RT CAROTID ENDARTERECTOMY 2019 Social History Smoking Cessation: Never Smoker Alcohol Use: None Any Illegal Drug Use: No Other Last Tetanus: UTD Review of Systems Review of Systems Constitutional: no symptoms EENTM: other (neck pain) Cardiovascular: no symptoms Respiratory: dyspnea Gastrointestinal: no symptoms Genitourinary: no symptoms Musculoskeletal: no symptoms Neurological: no symptoms, tingling (L UE) Psychological: no symptoms Endocrine: no symptoms Hematological/Lymphatic: no symptoms Review of other systems All other systems reviewed and negative. Physical Exam Related Data Allergies: Coded Allergies: No Known Allergies (Unverified , 10/01/18) Triage Vital Signs Vital Signs Date Time Temp Pulse Resp B/P (MAP) Pulse Ox O2 Delivery O2 Flow Rate FiO2 12/01/19 08:16 98.1 88 20 219/93 96 Vital signs reviewed: Yes Physical Exam CONSTITUTIONAL Constitutional: obese HENT HENT: other (Mild TTP midline cervical region) HENT L/R: left ext ear normal, right ext ear normal EYES Eyes: PERRL, conjunctivae normal NECK Neck: ROM normal PULMONARY Pulmonary: effort normal, breath sounds normal CARDIOVASCULAR Cardiovascular: regular rhythm, heart sounds normal, capillary refill normal, normal rate GASTROINTESTINAL Abdominal: soft, nontender, bowel sounds normal GENITOURINARY Genitourinary: exam deferred SKIN Skin: warm, dry MUSCULOSKELETAL Musculoskeletal: ROM normal NEUROLOGICAL Neurological: alert, oriented x 3, no gross motor or sensory deficits PSYCHOLOGICAL Psychological: mood/affect normal, judgement normal Results Laboratory Laboratory Laboratory Tests Test 12/01/19 09:40 12/01/19 08:35 Sodium Level 141 mmol/L (136-145) Potassium Level 4.2 mmol/L (3.5-5.1) Chloride Level 107 mmol/L (98-107) Carbon Dioxide Level 25 mmol/L (22-29) Anion Gap 13.2 mmol/L (8-16) Blood Urea Nitrogen 10 mg/dL (7-26) Creatinine 0.70 mg/dL (0.57-1.11) Estimat Glomerular Filtration Rate > 60 ML/MIN (60-) BUN/Creatinine Ratio 14 (6-25) Glucose Level 181 mg/dL (74-118) Calcium Level 8.9 mg/dL (8.4-10.2) Total Bilirubin 0.7 mg/dL (0.2-1.2) Aspartate Amino Transf (AST/SGOT) 32 IU/L (5-34) Alanine Aminotransferase (ALT/SGPT) 42 IU/L (0-55) Alkaline Phosphatase 107 IU/L (40-150) Creatine Kinase 101 IU/L (29-168) Creatine Kinase MB 1.20 ng/mL (0-5.0) Troponin I 0.004 ng/mL (0-0.300) Total Protein 6.8 g/dL (6.5-8.1) Albumin 3.6 g/dL (3.5-5.0) Globulin 3.2 g/dL (2.3-3.5) Albumin/Globulin Ratio 1.1 (0.8-2.0) White Blood Count 7.03 x10e3/uL (4.8-10.8) Red Blood Count 4.41 x10e6/uL (3.6-5.1) Hemoglobin 11.7 g/dL (12.0-16.0) Hematocrit 36.7 % (34.2-44.1) Mean Corpuscular Volume 83.2 fL (81-99) Mean Corpuscular Hemoglobin 26.5 pg (28-32) Mean Corpuscular Hemoglobin Concent 31.9 g/dL (31-35) Red Cell Distribution Width 14.7 % (11.7-14.4) Platelet Count 239 x10e3/uL (140-360) Neutrophils (%) (Auto) 62.7 % (38.7-80.0) Lymphocytes (%) (Auto) 21.5 % (18.0-39.1) Monocytes (%) (Auto) 11.7 % (4.4-11.3) Eosinophils (%) (Auto) 2.6 % (0.0-6.0) Basophils (%) (Auto) 0.9 % (0.0-1.0) Neutrophils # (Auto) 4.4 (2.1-6.9) Lymphocytes # (Auto) 1.5 (1.0-3.2) Monocytes # (Auto) 0.8 (0.2-0.8) Eosinophils # (Auto) 0.2 (0.0-0.4) Basophils # (Auto) 0.1 (0.0-0.1) Absolute Immature Granulocyte (auto 0.04 x10e3/uL (0-0.1) B-Type Natriuretic Peptide 41.8 pg/mL (0-100) Lab results reviewed: Yes Imaging Imaging results reviewed: Yes Impressions [place] [address] Patient Name: FANG QUINTANILLA MR #: [id number] : 1945 Age/Sex: 74/F Req #: [id number] Adm Physician: Ordered by: NATHANAEL ANDERSON DO Report #: [id number] Location: ER Room/Bed: Procedure: [id number] MRI/MRI BRAIN WO Exam Date: Exam Time: REPORT STATUS: Signed MRI BRAIN WO HISTORY: Left-sided facial numbness for one day COMPARISON: Head CT 04/23/2016 TECHNIQUE: Sagittal T2, axial T2, axial T1, axial T2/FLAIR, axial gradient echo (or susceptibility weighted), coronal T2/FLAIR, and axial diffusion weighted MR images of the brain were obtained without contrast. Motion artifacts obscure some details. DISCUSSION: Scalp/bone marrow: Unremarkable. Brain sulci: Prominent. Ventricles: Compensatory dilatation. Extra-axial spaces: No masses or fluid collections. Parenchyma: Scattered T2/FLAIR hyperintense foci throughout the supratentorial white matter are likely chronic microvascular ischemic changes. Otherwise, no mass, hemorrhage, or acute vascular insults. Vessels: Normal flow voids in major arteries and veins. Sellar/Suprasellar region: No abnormalities. Craniocervical junction: No abnormalities. Incidental findings: Bilateral ocular lens replacement. IMPRESSION: 1. No acute intracranial abnormalities. 2. Mild supratentorial chronic microvascular ischemic change. 3. Mild generalized cerebral volume loss. Signed by: Dr. Osmani Hernandez M.D. on 12/01/2019 1:07 PM Dictated By: OSMANI HERNANDEZ MD 130 Transcribed By: BRITTNEY on 12/01/19 1303 COPY TO: NATHANAEL ANDERSON DO~ [place] [address] Patient Name: FANG QUINTANILLA MR #: [id number] : 1945 Age/Sex: 74/F Req #: [id number] Adm Physician: Ordered by: NATHANAEL ANDERSON DO Report #: [id number] Location: ER Room/Bed: Procedure: [id number] MRI/MRI SPINE CERVICAL WO Exam Date: Exam Time: REPORT STATUS: Signed MRI SPINE CERVICAL WO HISTORY: Left-sided numbness, upper extremity COMPARISON: None. TECHNIQUE: Sagittal T1, sagittal T2, sagittal inversion recovery, axial T2, axial T2 GRE, and axial T1 weighted MR images of the cervical spine were obtained without intravenous contrast. Motion artifacts obscure some details. DISCUSSION: Alignment: Straightening of the cervical spine lordosis. No scoliosis. Vertebrae: No definite evidence for fractures, infection, or neoplasm. Cervicomedullary junction: No abnormalities. Spinal cord: Normal in signal and morphology from the foramen magnum through T3-T4. Soft tissues: No signal abnormalities. Mild multilevel disc degeneration is most prominent at C5-C6. C2-C3: Patent canal and foramina. C3-C4: Mild to moderate bilateral foraminal stenoses due to uncovertebral and facet arthrosis. No significant canal stenosis. C4-C5: Mild to moderate canal stenosis due to disc osteophyte complex and ligamentum flavum thickening. Mild bilateral foraminal stenoses due to uncovertebral and facet arthrosis. C5-C6: Moderate canal stenosis due to posterior disc osteophyte complex and ligamentum flavum thickening. Moderate to severe right and mild left foraminal stenoses due to uncovertebral and facet arthrosis. C6-C7: Moderate canal stenosis due to posterior disc osteophyte complex and ligamentum flavum thickening. Mild to moderate bilateral foraminal stenoses due to uncovertebral and facet arthrosis. C7-T1: Patent canal and foramina. IMPRESSION: Motion artifacts obscure some details. In spite of limitations: 1. Mild multilevel disc degeneration, most prominent at C5-C6. 2. Moderate degenerative canal stenoses at C5-C6 and C6-C7. 3. Multilevel bilateral degenerative foraminal stenoses - moderate to severe on the right at C5-C6. Signed by: Dr. Osmani Hernandez M.D. on 12/01/2019 1:03 PM Dictated By: OSMANI HERNANDEZ MD 1303 Transcribed By: BRITTNEY on 12/01/19 1303 COPY TO: NATHANAEL ANDERSON DO~ Procedures 12 Lead ECG Interpretation Date: December 01, 2019 Time: 08:32 Prior [employer] tracings: reviewed Rhythm: sinus rhythm Rate: normal BPM: 75 QRS axis: normal Conduction: right bundle branch block ST segments normal: Yes T waves normal: Yes Q waves: V1, V2 Clinical Impression: non-specific ECG Assessment & Plan Assessment & Plan Problems: (1) Hypertension (2) Cervical radiculopathy Assessment & Plan MRI reviewed. No acute intracranial pathology noted. TIA and CVA considered. Patient discharged to f/u with PCP Depart Disposition: HOME, SELF-CARE Last Vital Signs Date Time Temp Pulse Resp B/P (MAP) Pulse Ox O2 Delivery O2 Flow Rate FiO2 12/01/19 09:30 76 17 159/86 98 12/01/19 08:16 98.1 Home Meds Reported Medications Metoprolol Tartrate (METOPROLOL TARTRATE) 25 Mg Tablet, 25 MG PO BID for 90 Days, TAB 11/21/19 Potassium Chloride (KLOR-CON M10) 10 Meq Tab.er.prt, 10 MEQ PO DAILY 11/21/19 Buspirone Hcl (BUSPIRONE HCL) 7.5 Mg Tablet, 5 MG PO BID PRN for ANXIETY 11/21/19 Levocetirizine Dihydrochloride (LEVOCETIRIZINE DIHYDROCHLORIDE) 5 Mg Tablet, 5 MG PO QD17 11/21/19 Furosemide (LASIX) 20 Mg Tablet, 20 MG PO QAM, TAB 11/21/19 Insulin Glargine,Hum.rec.anlog ([place] Solostar) 300 Unit/1 Ml Insuln.pen, 64 UNIT SQ HS 04/29/19 Insulin Lispro (HUMALOG) 100 Unit/1 Ml Cartridge, 15 UNITS SQ TIDWM 04/29/19 Aspirin (ASPIRIN ENTERIC COATED) 325 Mg Tabec, 325 MG PO DAILY, #30 TAB 04/29/19 Famotidine (FAMOTIDINE) 20 Mg Tab, 40 MG PO Q12H, #30 TAB 04/29/19 Metformin Hcl (METFORMIN HCL) 500 Mg Tablet, 1000 MG PO BID, #60 TAB STOP MEDICATION UNTIL AFTER SURGERY 10/06/18 Trazodone Hcl (TRAZODONE HCL) 50 Mg Tablet, 100 MG PO HS, #30 TAB 10/01/18 Clopidogrel Bisulfate (CLOPIDOGREL) 75 Mg Tablet, 75 MG PO DAILY, #30 TAB 10/01/18 Cholecalciferol (Vitamin D3) (VITAMIN D) 1,000 Unit Tablet, 1 TAB PO Q SUNDAY, #30 TAB 12/23/17 Donepezil Hcl (ARICEPT) 5 Mg Tablet, 10 MG PO HS, #60 TAB 12/23/17 Escitalopram Oxalate (LEXAPRO) 10 Mg Tablet, 10 MG PO DAILY, #30 TAB 12/23/17 Levothyroxine Sodium (LEVOTHYROXINE SODIUM) 75 Mcg Tablet, 75 MCG PO DAILY, #30 TAB 09/08/15 Lisinopril (LISINOPRIL) 40 Mg Tablet, 40 MG PO DAILY 09/08/15 Medications in the ED Sodium Chloride 1,000 ml @ 0 mls/hr Q0M STAT IV Last administered on 12/01/19at 08:59; Admin Dose 1,000 MLS/HR; Start 12/01/19 at 08:17; Stop 12/01/19 at 15:19; Status DC Aspirin 81 mg PRN ONCE PO ; Start 12/01/19 at 08:30; Stop 12/01/19 at 15:19; Status DC Lorazepam 1 mg ONCE ONCE IV Last administered on 12/01/19at 10:50; Admin Dose 1 MG; Start 12/01/19 at 10:45; Stop 12/01/19 at 15:19; Status DC NATHANAEL ANDERSON DO December 01, 2019 08:20
[2019-12-01] MEDS ORDERED: ASPIRIN 81 MG CHEW TAB PO ONE (08:30)
[2019-12-01 08:53] LABS: BASOPHILS # (AUTO) 0.1 (0.0-0.1); BASOPHILS % 0.9 % (0.0-1.0); EOSINOPHILS # (AUTO) 0.2 (0.0-0.4); EOSINOPHILS % 2.6 % (0.0-6.0); HEMATOCRIT 36.7 % (34.2-44.1); HEMOGLOBIN 11.7 g/dL (12.0-16.0); LYMPHOCYTES # (AUTO) 1.5 (1.0-3.2); LYMPHOCYTES % 21.5 % (18.0-39.1); MEAN CORPUSCULAR HEMOGLOBIN 26.5 pg (28-32); MEAN CORPUSCULAR HGB CONC 31.9 g/dL (31-35); MEAN CORPUSCULAR VOLUME 83.2 fL (81-99); MONOCYTES # (AUTO) 0.8 (0.2-0.8); MONOCYTES % 11.7 % (4.4-11.3); NEUTROPHILS # (AUTO) 4.4 (2.1-6.9); NEUTROPHILS % 62.7 % (38.7-80.0); PLATELET COUNT 239 x10e3/uL (140-360); RED BLOOD COUNT 4.41 x10e6/uL (3.6-5.1); RED CELL DISTRIBUTION WIDTH 14.7 % (11.7-14.4)
[2019-12-01 10:15] LABS: ALANINE AMINOTRANSFERASE 42 IU/L (0-55); ALBUMIN 3.6 g/dL (3.5-5.0); ALBUMIN/GLOBULIN RATIO 1.1 (0.8-2.0); ALKALINE PHOSPHATASE 107 IU/L (40-150); ANION GAP 13.2 mmol/L (8-16); BLOOD UREA NITROGEN 10 mg/dL (7-26); BUN/CREATININE RATIO 14 (6-25); CALCIUM 8.9 mg/dL (8.4-10.2); CARBON DIOXIDE 25 mmol/L (22-29); CHLORIDE 107 mmol/L (98-107); CREATINE KINASE 101 IU/L (29-168); EST GLOMERULAR FILTRATION RATE > 60 ML/MIN (60-); GLUCOSE 181 mg/dL (74-118); POTASSIUM 4.2 mmol/L (3.5-5.1); SODIUM 141 mmol/L (136-145)
[2019-12-01] MEDS ORDERED: LORAZEPAM INJ 2 MG/ML VIAL IV ONE (10:45)
--- NOTE | 2019-12-01 13:06 | Diagnostic Imaging Report ---
MRI SPINE CERVICAL WO HISTORY: Left-sided numbness, upper extremity COMPARISON: None. TECHNIQUE: Sagittal T1, sagittal T2, sagittal inversion recovery, axial T2, axial T2 GRE, and axial T1 weighted MR images of the cervical spine were obtained without intravenous contrast. Motion artifacts obscure some details. DISCUSSION: Alignment: Straightening of the cervical spine lordosis. No scoliosis. Vertebrae: No definite evidence for fractures, infection, or neoplasm. Cervicomedullary junction: No abnormalities. Spinal cord: Normal in signal and morphology from the foramen magnum through T3-T4. Soft tissues: No signal abnormalities. Mild multilevel disc degeneration is most prominent at C5-C6. C2-C3: Patent canal and foramina. C3-C4: Mild to moderate bilateral foraminal stenoses due to uncovertebral and facet arthrosis. No significant canal stenosis. C4-C5: Mild to moderate canal stenosis due to disc osteophyte complex and ligamentum flavum thickening. Mild bilateral foraminal stenoses due to uncovertebral and facet arthrosis. C5-C6: Moderate canal stenosis due to posterior disc osteophyte complex and ligamentum flavum thickening. Moderate to severe right and mild left foraminal stenoses due to uncovertebral and facet arthrosis. C6-C7: Moderate canal stenosis due to posterior disc osteophyte complex and ligamentum flavum thickening. Mild to moderate bilateral foraminal stenoses due to uncovertebral and facet arthrosis. C7-T1: Patent canal and foramina. IMPRESSION: Motion artifacts obscure some details. In spite of limitations: 1. Mild multilevel disc degeneration, most prominent at C5-C6. 2. Moderate degenerative canal stenoses at C5-C6 and C6-C7. 3. Multilevel bilateral degenerative foraminal stenoses - moderate to severe on the right at C5-C6. Signed by: Dr. Osmani Hernandez M.D. on 12/01/2019 1:03 PM
--- NOTE | 2019-12-01 13:10 | Diagnostic Imaging Report ---
MRI BRAIN WO HISTORY: Left-sided facial numbness for one day COMPARISON: Head CT 04/23/2016 TECHNIQUE: Sagittal T2, axial T2, axial T1, axial T2/FLAIR, axial gradient echo (or susceptibility weighted), coronal T2/FLAIR, and axial diffusion weighted MR images of the brain were obtained without contrast. Motion artifacts obscure some details. DISCUSSION: Scalp/bone marrow: Unremarkable. Brain sulci: Prominent. Ventricles: Compensatory dilatation. Extra-axial spaces: No masses or fluid collections. Parenchyma: Scattered T2/FLAIR hyperintense foci throughout the supratentorial white matter are likely chronic microvascular ischemic changes. Otherwise, no mass, hemorrhage, or acute vascular insults. Vessels: Normal flow voids in major arteries and veins. Sellar/Suprasellar region: No abnormalities. Craniocervical junction: No abnormalities. Incidental findings: Bilateral ocular lens replacement. IMPRESSION: 1. No acute intracranial abnormalities. 2. Mild supratentorial chronic microvascular ischemic change. 3. Mild generalized cerebral volume loss. Signed by: Dr. Osmani Hernandez M.D. on 12/01/2019 1:07 PM
== END 2019-12-01 15:18 | disposition home or self-care (01) ==
LOC: ER 08:13
DX: I10 Essential (primary) hypertension (principal); M54.12 Radiculopathy, cervical region; E11.65 Type 2 diabetes mellitus with hyperglycemia; I25.10 Atherosclerotic heart disease of native coronary artery without angina pectoris; E78.5 Hyperlipidemia, unspecified; F41.9 Anxiety disorder, unspecified
CPT/HCPCS: 36415; 70551; 72141; 80053; 82550; 82553; 83880; 84484; 85025; 93005; 99284; J2060; J7030